=== PATIENT | male | born 1950 | race Caucasian/White ===

== ENCOUNTER → 2018-11-20 08:00 | Outpatient (CLI) | payer MEDICARE, BC, SELFPAY ==
--- NOTE | 2018-11-20 | IMM_PTH ---
PATIENT: DESIRE SORENSEN LOC: [facility] U#:[id number] AGE/SX: 74/M ROOM: RE11/20/[address]: Dr. Curtis Collins MD : 1950 BED: DIS: SPEC #: [id number] RECD: 11/22/18 14:22 STATUS: ENA REMore #: [id number] CHIDI: 11/20/18 00:[address]: Curtis Collins DEPT: IMMUNOHISTOCHEMISTRY RECD BY: Orin Heck ENTERED: 11/22/18 14:24 SP TYPE: IMMUNO OTHR DR: Dr. Willis Means MD Tissues: C - PROSTATE RIGHT E - PROSTATE LEFT F - PROSTATE LEFT Procedures: 34BE12 (add) P40 (add) 34BE12 (initial) PHYSICIAN & INSTITUTION [place] [id number] SPECIMEN INFORMATION: Tissue Source: C - Right prostate, base, E - Left prostate, mid, F - Left prostate, base Clinical Info: Elevated PSA Specimen Number: [id number] C, E & F CPT code: 25432, 03865 x5 METHODOLOGY: Deparaffinized sections of prefer/formalin-fixed tissue or PAP/DQ stained slides are incubated with monoclonal/polyclonal antibodies/oligonucleotide probes. Localization is made via biotin free immunoperoxidase method. Appropriate controls are performed and reacted as expected. Results on target cell population are indicated in the following table: RESULTS: ANTIBODY / CLONE RESULT Block C P40 (BC28) positive 34BE12 (34BE12) positive Block E P40 (BC28) negative 34BE12 (34BE12) negative Block F P40 (BC28) negative 34BE12 (34BE12) negative These tests were developed and their performance characteristics determined by [facility]. They may not have been cleared or approved by the U.S. Food and Drug Administration. The FDA has determined that such clearance or approval is not necessary. INTERPRETATION: C. Right prostate, base, core biopsy: Benign prostatic tissue E. Left prostate, mid, core biopsy: Focal atypical small acinar proliferation F. Left prostate, base, core biopsy: Adenocarcinoma. AM:diego 11/23/18
--- NOTE | 2018-11-20 08:00 | PROSBIL_PTH ---
PATIENT: DESIRE SORENSEN LOC: [facility] U#:[id number] AGE/SX: 74/M ROOM: RE11/20/[address]: Dr. Curtis Collins MD : 1950 BED: DIS: SPEC #: [id number] RECD: 11/20/18 18:55 STATUS: ENA ISABELLA #: [id number] CHIDI: 11/20/18 08:[address]: Curtis Collins DEPT: SURGICAL PATHOLOGY RECD BY: Chaka Dixon ENTERED: 11/21/18 10:03 SP TYPE: PROST BX VALENTÍN DR: Dr. Willis Means MD Tissues: A - PROSTATE RIGHT B - PROSTATE RIGHT C - PROSTATE RIGHT D - PROSTATE LEFT E - PROSTATE LEFT F - PROSTATE LEFT Procedures: PROSTATE BX HEADER OPERATION: Prostate biopsy PRE-OP DIAGNOSIS: Elevated PSA TISSUE SUBMITTED: A - Right apex, B - Right mid, C - Right base, D - Left apex, E - Left mid, F - Left base MICROSCOPIC DIAGNOSIS A. Right prostate, apex, core biopsy: Adenocarcinoma: [place] grade: 6 (3+3) Cores involved: 2 out of 2 Tissue involved: 35% Greatest tumor length: 3 mm Perineural invasion: Present B. Right prostate, mid, core biopsy: Glandular atrophy. C. Right prostate, base, core biopsy: Focal high-grade prostatic intraepithelial neoplasia (HGPIN). See comment. D. Left prostate, apex, core biopsy: Adenocarcinoma: Al[place] grade: 6 (3+3) Cores involved: 2 out of 2 Tissue involved: 45% Greatest tumor length: 8 mm E. Left prostate, mid, core biopsy: Focal atypical small acinar proliferation. See comment. F. Left prostate, base, core biopsy: Adenocarcinoma: [place] grade: 7 (3+4) Cores involved: 2 out of 2 Tissue involved: 55% Greatest tumor length: 1 mm See comment. AM:diego 11/22/18 COMMENT C, E & F - Immunohistochemistry ([id number]) supports the above diagnosis. MICROSCOPIC DESCRIPTION Slides are reviewed. GROSS DESCRIPTION A - Received is one container designated prostate, right apex. The specimen consists of two elongated fragments of light dunn-white soft tissue measuring 0.8 to 1.2 cm in length and 0.1 cm in diameter. The specimen is totally submitted in one cassette. B - Received is one container designated prostate, right mid. The specimen consists of two elongated fragments of light dunn-white soft tissue measuring 0.5 to 1.2 cm in length and 0.1 cm in diameter. The specimen is totally submitted in one cassette. C - Received is one container designated prostate, right base. The specimen consists of two elongated fragments of light dunn-white soft tissue measuring 1.2 to 1.3 cm in length and 0.1 cm in diameter. The specimen is totally submitted in one cassette. D - Received is one container designated prostate, left apex. The specimen consists of two elongated fragments of light dunn-white soft tissue measuring 0.7 to 1.2 cm in length and 0.1 cm in diameter. The specimen is totally submitted in one cassette. E - Received is one container designated prostate, left mid. The specimen consists of two elongated fragments of light dunn-white soft tissue measuring 0.5 to 1.2 cm in length and 0.1 cm in diameter. The specimen is totally submitted in one cassette. F - Received is one container designated prostate, left base. The specimen consists of two elongated fragments of light dunn-white soft tissue measuring 0.9 to 1 cm in length and 0.1 cm in diameter. The specimen is totally submitted in one cassette. / CE:diego 11/21/18 TC:0 CPT: G0146
== END ==
PROVIDERS: Family Provider Family Medicine; PCP Family Medicine; Referring Provider Urology; Visit Provider Urology
DX: R97.20 Elevated prostate specific antigen [PSA] (principal)
CPT/HCPCS: 88305; 88341; 88342; G0416

== ENCOUNTER → 2018-12-07 | Outpatient (CLI) | payer MEDICARE, BC, SELFPAY ==
--- NOTE | 2018-12-07 07:51 | CT_ITS ---
STUDY: CT ABDOMEN AND PELVIS WITH CONTRAST REASON FOR EXAM: Male, 68 years old. New diagnosis of prostate cancer. Elevated PSA levels. RADIATION DOSAGE (If Supplied By Facility): CTDIvol = ( 21.47 ) mGy, DLP = ( 1221.66 ) mGycm TECHNIQUE: Transaxial images were obtained from the dome of the diaphragm to the symphysis pubis without oral contrast. 75mL IV Isovue 300 was administered. Sagittal and coronal images were reconstructed. Individualized dose optimization techniques were used for this CT. COMPARISON: None. FINDINGS: The visualized lung bases are unremarkable. The visualized portions of the heart are within normal limits. There is decreased attenuation of the liver consistent with steatosis. Normal gallbladder and extrahepatic biliary system. Normal spleen. Normal pancreas. Normal bilateral adrenal glands. Normal right kidney. Normal left kidney. There is a small hiatal hernia. Normal small intestine. Normal colon. The appendix is visualized and appears normal. There is scattered atherosclerotic calcification of the abdominal aorta, without a demonstrated aneurysm. Normal inferior vena cava. There is retroperitoneal lymphadenopathy with enlarged nodes greater than 10-15mm in the short axis. The largest measures 1.9 cm. This is at the level of the bifurcation of the left common iliac artery and vein. There is also evidence of a 1.7 cm lymph node in the level of the left renal pelvis. This is at the level of the left renal hilus. Slightly enlarged lymph nodes are also seen in the left side of the pelvis. Normal urinary bladder. There is enlargement of the prostate gland. It measures 5.6 cm x 5.3 cm. This causes indentation at the bladder base. There is a small umbilical hernia containing fat. Small benign-appearing lymph nodes in the inguinal regions bilaterally. There are diffuse degenerative changes of the visualized lumbar spine. CT/Abdomen/Pelvis WITH Contrast IMPRESSION: Enlarged prostate with indentation of the bladder base. Retroperitoneal lymphadenopathy. Fatty infiltration of the liver. Electronically Signed: Marcos Booker, at 10:33 EDT , Service support ,
[2018-12-07 08:11] LABS: CREATININE FINGERSTICK 1.4 mg/dL (0.70-1.30)
== END | disposition home or self-care (01) ==
PROVIDERS: Family Provider Family Medicine; PCP Family Medicine; Referring Provider Urology; Visit Provider Urology
DX: C61 Malignant neoplasm of prostate (principal)
CPT/HCPCS: 74177; Q9967

== ENCOUNTER → 2018-12-11 07:31 | Outpatient (CLI) | payer MEDICARE, BC, SELFPAY ==
--- NOTE | 2018-12-11 07:36 | NM_ITS ---
CLINICAL: 68-year-old male with reported history of carcinoma of the prostate. WHOLE BODY 99m Tc MDP RADIONUCLIDE BONE SCINTIGRAPHY COMPARISON: CT of the abdomen-pelvis report 12/07/2018 FINDINGS: Following the intravenous administration of 28.0 mCi of 99m Tc MDP, whole body bone images reveal: 1. Increased radiopharmaceutical concentration is identified in the right posterior third rib. 2. Facilitated tracer distribution is noted in the mid cervical spine posteriorly on the left and right, the acromioclavicular and sternoclavicular compartments of both shoulders, third and fifth lumbar vertebra posteriorly on the left, visualized left wrist, both knees, posterior compartments of both ankles, right-left midfoot and right forefoot. 3. The remaining skeletal structures are scintigraphically unremarkable with normal-appearing renal images and urinary bladder activity identified. NM/Bone Scan Whole Body IMPRESSION: 1. The increase in radiopharmaceutical concentration identified in the right posterior third rib likely represents previous trauma-fracture and may be further investigated with plain film radiography in the setting of known prostate carcinoma. 2. 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 3. There is no definitive scintigraphic evidence of diffuse axial skeletal metastatic disease on the current examination. Electronically Signed: Renaldo Peguero DO at 23:20 EDT Tel , Service support ,
== END ==
PROVIDERS: Family Provider Family Medicine; PCP Family Medicine; Referring Provider Urology; Visit Provider Urology
DX: C61 Malignant neoplasm of prostate (principal)
CPT/HCPCS: 78306

== ENCOUNTER 2019-02-14 11:27 | Inpatient (IN) | payer MEDICARE, BC, SELFPAY ==
[2019-02-08 09:16] VITALS: BP 150/88; PULSE 67; RESP 16; TEMP 36.1; O2SAT 98; BMI 34.1
--- NOTE | 2019-02-08 09:32 | SDCEKG_ITS ---
Test Reason : Blood Pressure : / mmHG Vent. Rate : 063 BPM Atrial Rate : 063 BPM P-R Int : 256 ms QRS Dur : 100 ms QT Int : 402 ms P-R-T Axes : 082 -46 -07 degrees QTc Int : 411 ms Sinus rhythm with 1st degree A-V block Pulmonary disease pattern Incomplete right bundle branch block Left anterior fascicular block Minimal voltage criteria for LVH, may be normal variant Abnormal ECG Confirmed by KENDY PEREZ ([id number]), photography editor SCOOTER BULLOCK ([id number]) on 02/12/2019 2:00:22 PM Referred By: Curtis Collins Confirmed By:KENDY PEREZ
[2019-02-08 10:32] LABS: Hematocrit 40.4 % (40-54); Hemoglobin 13.2 g/dL (13.0-16.5); Mean Corp Hgb Conc 32.7 g/dL (32-36); Mean Corpuscular Hgb 25.9 pg (27.0-32.0); Mean Corpuscular Volume 79.2 fL (80-94); Mean Platelet Vol. 11.5 fl (6.2-12.0); Platelet Count 150 K/mm3 (150-450); RBC Distribution Width CV 14.6 % (11.6-14.6); RBC Distribution Width SD 42.1 fl (35.1-43.9)
[2019-02-08 10:53] LABS: Anion Gap 9 (5-15); BUN 17 mg/dL (7-18); BUN/Creat Ratio 18.3 RATIO (10-20); Chloride 105 mmol/L (98-107); Creatinine, Serum 0.93 mg/dL (0.70-1.30); EST Glomerular Filtration Rate 86 mL/min (>60); Est Glom Filt Rate - Afr Amer 103 mL/min (>60); Estimated Creatinine Clearance 78.72 ml/min; Glucose 219 mg/dL (74-106); Potassium 3.8 mmol/L (3.5-5.1); Sodium Level 140 mmol/L (136-145)
[2019-02-08 11:01] LABS: Hemoglobin A1c 8.8 % (4.2-6.3)
[2019-02-14] VITALS (14 sets, daily range): BP systolic 98–170; BP diastolic 57–94; PULSE 53–92; RESP 14–20; TEMP 36–37; O2SAT 92–100; BMI 34.1
--- NOTE | 2019-02-14 | IMM_PTH ---
PATIENT: DESIRE SORENSEN LOC: [facility] U#:[id number] AGE/SX: 68/M ROOM: [facility] RE02/14/[address]: Dr. Curtis Collins MD : 1950 BED: 1 DIS: 02/15/2019 SPEC #: [id number] RECD: 02/16/19 14:04 STATUS: ENA REQ #: [id number] CHIDI: 02/14/19 00:[address]: Curtis Collins DEPT: IMMUNOHISTOCHEMISTRY RECD BY: Orin Heck ENTERED: 02/16/19 14:05 SP TYPE: IMMUNO OTHR DR: Dr. Willis Means MD Tissues: B - Prostate, NOS Procedures: CD31 (initial) CD31 (add) FACTOR VIII (add) PHYSICIAN & INSTITUTION [place] [phone] SPECIMEN INFORMATION: Tissue Source: B - Prostate Clinical Info: Malignant neoplasm, elevated PSA Specimen Number: [id number] B15 & B18 CPT code: 82758, 56363 x3 METHODOLOGY: Deparaffinized sections of prefer/formalin-fixed tissue or PAP/DQ stained slides are incubated with monoclonal/polyclonal antibodies/oligonucleotide probes. Localization is made via biotin free immunoperoxidase method. Appropriate controls are performed and reacted as expected. Results on target cell population are indicated in the following table: RESULTS: ANTIBODY / CLONE RESULT Block B15 CD31 (SANIA/70A) positive Factor VIII (R Ag) negative Block B18 CD31 (SANIA/70A) positive Factor VIII (R Ag) positive, focal These tests were developed and their performance characteristics determined by [facility]. They may not have been cleared or approved by the U.S. Food and Drug Administration. The FDA has determined that such clearance or approval is not necessary. INTERPRETATION: B. Prostate, radical prostatectomy: The tumor shows focal lymph-vascular invasion. SJ:diego 02/19/19
[2019-02-14 06:25] LABS: Bedside Glucose 142 mg/dL (70-110)
--- NOTE | 2019-02-14 07:30 | PROST_PTH ---
PATIENT: DESIRE SORENSEN LOC: [facility] U#:[id number] AGE/SX: 68/M ROOM: [facility] RE02/14/[address]: Dr. Curtis Collins MD : 1950 BED: 1 DIS: 02/15/2019 SPEC #: [id number] RECD: 02/14/19 16:43 STATUS: ENA REQ #: [id number] CHIDI: 02/14/19 07:[address]: Curtis Collins DEPT: SURGICAL PATHOLOGY RECD BY: Chaka Dixon ENTERED: 02/15/19 09:33 SP TYPE: PROSTATE OTHR DR: Dr. Willis Means MD Tissues: A - Prostate, NOS B - Prostate, NOS C - Prostate, NOS Procedures: Surgery Specimen Level IV Surgery Specimen Level HEADER OPERATION: Laparoscopic robotic radical prostatectomy with IOC PRE-OP DIAGNOSIS: Malignant neoplasm of prostate; elevated PSA TISSUE SUBMITTED: A - Fat over prostate, B - Prostate, C - Apical margin MICROSCOPIC DIAGNOSIS A. Fat over prostate: Fragments of mature adipose tissue, negative for carcinoma. B. Prostate, radical prostatectomy: Prostatic adenocarcinoma. See cancer summary below. C. Apical margin, biopsy: Positive for prostatic adenocarcinoma. SJ:diego 02/16/19 PROSTATE CANCER (RADICAL) SUMMARY: Procedure - radical prostatectomy Prostate size - 5 cm transversely, 4 cm anteroposteriorly and 4 cm craniocaudally Prostate weight - 88.3 gm Lymph node sampling - no lymph node present. Histologic type - adenocarcinoma (acinar, not otherwise specified) Histologic grade ([place] Pattern): Primary pattern - 4 Secondary pattern - 5 Tertiary pattern - 3 Total Alida score - 9 Tumor Quantitation: Proportion (%) of prostate involved by tumor - ~40% Extraprostatic extension - present, focal Seminal vesicle invasion - present Margins - apical margin involved by tumor. Treatment effect on carcinoma - no known presurgical therapy Lymph-Vascular invasion - present, see comment. Perineural invasion - present, frequent Regional lymph nodes - no lymph nodes submitted or found. Distant metastasis - not applicable Additional pathologic findings - chronic inflammation - Benign prostatic hyperplasia, glandular and stromal type. Ancillary studies - see immunohistochemistry ([id number]). PATHOLOGIC STAGE: pT3a,b pNx Mx The above summary is in compliance with [employer] (CAP) Cancer Protocols Checklist and [place] Joint Committee on Cancer (AJCC), Staging Manual, 8th Ed. COMMENT Immunohistochemistry ([id number]) supports the diagnosis of lymph-vascular invasion. The tumor involves both right and left lobes, apical, mid and basal portion of the prostate and in each lobe it measures about 1.7 x 1 x 3.5 cm. The tumor in the left lobe is present in slides #3, 6, 9, 11, 15, 15, 17 and 19 and in the right lobe is present in slides #3, 7, 8, 10, 12, 14 and 18. Please make reference to previous specimen ([id number]) right prostate, apex, left prostate, apex, and left prostate, base with diagnosis of adenocarcinoma right prostate, base with diagnosis of focal high-grade prostatic intraepithelial neoplasia and left prostate, mid with diagnosis of focal atypical small acinar proliferation. Case has been reviewed in consultation with Dr. Nguyễn who concurs with the above diagnosis. IDC:AM MICROSCOPIC DESCRIPTION Slides are reviewed. GROSS DESCRIPTION A - Received in fixative is one container labeled with the patient's name and designated fat over prostate. The specimen consists of two pieces of yellow adipose tissue that in aggregate measure 3.5 x 2 x 0.5 cm. The entire specimen is submitted in two cassettes. B - Received in fixative is one container labeled with the patient's name and designated prostate. The specimen consists of a radical prostatectomy specimen consisting of prostate with attached bilateral seminal vesicles and vas deferens. The entire specimen weighs 88.3 gm. The prostate measures 5 cm transversely, 4 cm anteroposteriorly and 4 cm craniocaudally. The right seminal vesicle measures 3 x 2 x 1 cm. The right vas deferens is partly disrupted and measures 2 cm in length and 0.4 cm in diameter. The left seminal vesicle measures 3 x 2 x 1 cm and left vas deferens measures 2 cm in length and 0.4 cm in diameter. The prostate is inked as follows: anterior margin - yellow, posterior margin - black, right lateral surface - green, left lateral surface - blue, bilateral seminal vesicles and vas deferens - posterior surface - black, anterior surface right seminal vesicle and vas deferens - blue, anterior surface left seminal vesicle and vas deferens - green. Sections do not reveal any obvious mass lesion. Children'S Nursery Assistant sections are submitted in 19 cassettes as follows: 1 - right seminal vesicle and vas deferens, 2 - left seminal vesicle and vas deferens, 3 - apical margin enface, 4 & 5 - bladder base margin and most basal portion prostate enface, 6-9 - apical portion prostate, 10-13 - middle portion prostate, 1419 - basal portion prostate. C - Received in fixative is one container labeled with the patient's name and designated apical margin. The specimen consists of two pieces of indurated tissue that in aggregate measure 1.7 x 1.7 x 0.5 cm. A suture is noted in one of the pieces. No mass lesion is identified. The entire specimen is submitted in one cassette. / COLEMAN:diego 02/15/19 TC:0 CPT: 51922, 87676 x2
[2019-02-14] MEDS: Cefazolin 2 GM in 0.9% Normal Saline 100 ML IV (07:34)
[2019-02-14] MEDS: Bupivacaine Mpf 0.5% 30 ML VIAL (11:00)
--- NOTE | 2019-02-14 11:15 | OP.PCM_ITS ---
Report of Operation Date of Procedure: 02/14/19 Pre-Operative Diagnosis: Prostate cancer Post-Operative Diagnosis: The same Surgery/Procedure Performed:: Laparoscopic robotic assisted radical prostatectomy, suture suspension of the urethra, EMG monitoring of the sphincter s and pelvic nerves. Description of Surgical Findings:: 68-year-old male taken back to the operating room at the smooth induction of anesthesia he was placed in dorsolithotomy position the penis testicles the abdomen chevron shaped prepped and draped in usual sterile fashion went into the umbilicus with a needle and inflated the peritoneal cavity CO2 gas docked the robotic arms docked the robot dissected below the bladder and prostate identified the vas deferens seminal vesicle these were all dissected out came back up drop the bladder I then incised the endopelvic fascia stitch in the dorsal vein complex, I then transected through the bladder and prostate down to the seminal vesicles and vas deferens, we then took the pedicles in the right side of the prostate and then released neurovascular bundles on the right side but very tight very difficult to release these and then dissected up on the right side of the partial nerve sparing in the right side, went to the left side took the pedicle in the left side of the prostate release neurovascular bundles but again extremely difficult dissection very fatty tissue was taken to the prostate so the nerve dissection was a partial nerve dissection of the left side as well I then transected to the urethra we then noticed that there is a bit of tissue in the apex that was anterior margin this was sent off from the urethra as an extra anterior margin and then came across the catheter prostate was then removed put an Endo Catch bag. I then stimulated the EMG electrodes on the right side and the left side checked for nerve conduction there was still nerve conduction on the right side left side is very weak. We then suspended the urethra with suture and created the anastomosis between the urethra and the bl adder neck over catheter this was run down with a running 30V lock stitch Encinas catheter was placed in the bladder placed to gravity drainage patient anesthetic is currently being reversed we extracted the prostate to the umbilicus we closed the umbilicus with the interrupted stitches and closed the 1012 Jaun Lopez site with Jaun Lopez stitch patient's anesthetic is currently being rever sed blood loss was about 500cc Encinas catheter was flushing well he will go home with a catheter in about a day or 2. Type of Anesthesia:: General Drains: encinas - Admit VTE Documentation VTE Present on Admission: No VTE Mechan Device Prophylaxis: SCD's
--- NOTE | 2019-02-14 11:42 | PCM.DC.URO ---
Discharge Diet: Light diet - advance as tolerated Discharge Activity: Return to Normal Activity, May not drive while taking narcotic pain medications., May Shower Lifting Restrictions: no lifting Call your doctor if your incision/area has: Continuous Slow Oozing, Sudden Increased Bleeding, Increased Pain/ Swelling, Increased Redness, Foul Smelling Discharge, Swelling at the incision site Call your doctor if you observe: Fever of 101 or Higher, Inability to have a bowel movement, Uncontrolled pain Suture Line Care: Avoid Pulling/Pushing, Avoid Pinching/Bending Instructions: Radical Prostatectomy Allergies/Adverse Reactions: Allergies No Known Allergies Allergy (Verified 02/08/19 09:01) Medications to take at Discharge Amlodipine [Norvasc] 10 mg PO QHS 02/08/19 Carvedilol [Coreg] 12.5 mg PO BID 02/08/19 Losartan Potassium [Cozaar] 100 mg PO DAILY 02/08/19 Metformin HCl 1,000 mg PO BID 02/08/19 Tamsulosin HCl [Flomax] 0.4 mg PO QHS 02/08/19 hydrALAZINE [Apresoline] 25 mg PO BID 02/08/19 Ciprofloxacin [Cipro] 500 mg PO BID #14 tab 02/14/19 Docusate Sodium [Colace] 100 mg PO BID #20 cap 02/14/19 Hydrocodone/Acetaminophen [[place] 5-325 Tablet] 1 ea PO Q4H PRN PRN 5 Days #14 tab 02/14/19 Primary Care Physician: Willis Means MD [Primary Care Provider] - Test Results: Test results from this visit will be discussed in further detail at your follow-up appointment, if applicable. Please Follow Up With: Curtis Collins MD When: in 2 weeks, please call to make an appointment. Proposed Discharge Date: 02/15/19
[2019-02-14 11:50] LABS: Bedside Glucose 202 mg/dL (70-110)
[2019-02-14 12:01] LABS: Hematocrit 39.8 % (40-54); Hemoglobin 12.7 g/dL (13.0-16.5); Mean Corp Hgb Conc 31.9 g/dL (32-36); Mean Corpuscular Hgb 25.7 pg (27.0-32.0); Mean Corpuscular Volume 80.6 fL (80-94); Mean Platelet Vol. 11.1 fl (6.2-12.0); Platelet Count 179 K/mm3 (150-450); RBC Distribution Width CV 14.5 % (11.6-14.6); RBC Distribution Width SD 42.2 fl (35.1-43.9); Red Blood Count 4.94 M/mm3 (4.6-6.2); White Blood Count 14.4 K/mm3 (4.4-11.0)
[2019-02-14 12:15] LABS: Anion Gap 9 (5-15); BUN 16 mg/dL (7-18); BUN/Creat Ratio 14.2 RATIO (10-20); Calcium,Total 8.4 mg/dL (8.5-10.1); Chloride 103 mmol/L (98-107); Creatinine, Serum 1.13 mg/dL (0.70-1.30); EST Glomerular Filtration Rate 68 mL/min (>60); Est Glom Filt Rate - Afr Amer 82 mL/min (>60); Estimated Creatinine Clearance 64.79 ml/min; Glucose 223 mg/dL (74-106); Sodium Level 140 mmol/L (136-145)
[2019-02-14] MEDS: Ketorolac 15 MG/ML Vial IV ×2 (13:13→17:21)
[2019-02-14] MEDS: 0.9% NaCl Peripheral Flush Adult/Peds IV ×2 (13:13→17:21)
[2019-02-14] MEDS: 0.9% Normal Saline 1,000 ML 125 ML IV ×2 (13:13→21:19)
[2019-02-14] MEDS: Ciprofloxacin 400 MG/200 ML BAG 200 MG IV (15:30)
[2019-02-14] MEDS: metFORMIN HCl 1,000 MG Tablet 1000 MG PO (18:16)
[2019-02-14] MEDS: amLODIPine 10 MG Tablet PO (21:22)
[2019-02-14] MEDS: Docusate Sodium 100 MG Capsule PO (21:22)
[2019-02-14] MEDS: Carvedilol 12.5 MG Tablet PO (21:22)
[2019-02-14] MEDS: hydrALAZINE 25 MG Tablet PO (21:23)
[2019-02-15] MEDS: Ketorolac 15 MG/ML Vial IV ×3 (00:34→11:53)
[2019-02-15] MEDS: 0.9% NaCl Peripheral Flush Adult/Peds IV ×3 (00:35→11:53)
[2019-02-15 04:15] VITALS: O2SAT 91
[2019-02-15 04:22] VITALS: BP 129/70; PULSE 79; RESP 18; TEMP 36.9; O2SAT 93
[2019-02-15] MEDS: 0.9% Normal Saline 1,000 ML 125 ML IV (04:24)
[2019-02-15] MEDS: Ciprofloxacin 400 MG/200 ML BAG 200 MG IV (04:25)
[2019-02-15 06:05] LABS: Hematocrit 34.3 % (40-54); Hemoglobin 10.9 g/dL (13.0-16.5); Mean Corp Hgb Conc 31.8 g/dL (32-36); Mean Corpuscular Hgb 25.2 pg (27.0-32.0); Mean Corpuscular Volume 79.2 fL (80-94); Mean Platelet Vol. 11.8 fl (6.2-12.0); Platelet Count 148 K/mm3 (150-450); RBC Distribution Width SD 43.4 fl (35.1-43.9); Red Blood Count 4.33 M/mm3 (4.6-6.2); White Blood Count 9.4 K/mm3 (4.4-11.0)
[2019-02-15 06:43] LABS: Anion Gap 10 (5-15); BUN 14 mg/dL (7-18); Calcium,Total 7.6 mg/dL (8.5-10.1); Chloride 106 mmol/L (98-107); Creatinine, Serum 0.88 mg/dL (0.70-1.30); EST Glomerular Filtration Rate 91 mL/min (>60); Est Glom Filt Rate - Afr Amer 110 mL/min (>60); Estimated Creatinine Clearance 83.19 ml/min; Glucose 179 mg/dL (74-106); Potassium 3.7 mmol/L (3.5-5.1); Sodium Level 139 mmol/L (136-145)
--- NOTE | 2019-02-15 07:32 | PCM.PN.BLA ---
Progress Note Postop day #1 status post radical prostatectomy doing well, advance to regular diet Hep-Lock he can go home today after lunch if doing well. Home with a Abbott catheter to gravity drainage and leg bag
[2019-02-15 08:06] VITALS: BP 132/77; PULSE 75
[2019-02-15] MEDS: hydrALAZINE 25 MG Tablet PO (08:06)
[2019-02-15] MEDS: Pantoprazole Sodium 20 MG Tablet PO (08:07)
[2019-02-15] MEDS: metFORMIN HCl 1,000 MG Tablet 1000 MG PO (08:07)
[2019-02-15] MEDS: Docusate Sodium 100 MG Capsule PO (08:07)
[2019-02-15] MEDS: Carvedilol 12.5 MG Tablet PO (08:07)
[2019-02-15] MEDS: Losartan Potassium 100 MG Tablet PO (08:07)
[2019-02-15 08:09] VITALS: BP 132/77; PULSE 75; RESP 18; TEMP 36.9; O2SAT 95
[2019-02-15] MEDS: Magnesium Hydroxide 30 ML UDC 15 ML PO (09:52)
--- NOTE | 2019-02-15 10:57 | CASEMGMT ---
RN CM Assessment Presentation: Radical prostatecomy. Intro role of CM and purpose of RN CM assessment to patient and his . Demographics, PCP and Pharmacy verified. Will dc home with catheter and f/u with Dr. Collins PCP: Dr. Willis Means Specialists: Dr. Collins Preferred Pharmacy: [facility] Insurance: [facility] Prescription Benefit: yes LNOK: , Sarahi Jacoob Living Arrangements: Lives independently. states she can assist with pt care needs. Family lives near by and are willing to assist if needed. Transportation: drives DME: none. HHC: none Patient DC goals: Home DC PLAN: Home on dc. Pt will have encinas catheter. RN DAI reviewed if concerns arise @ home to contact Dr. Collins's nurse for evaluation. Deonna PURVIS RN ACM
[2019-02-15 13:22] VITALS: O2SAT 95
[2019-02-15 14:37] VITALS: BP 119/67; PULSE 79; RESP 18; TEMP 36.8; O2SAT 94
== END 2019-02-15 16:02 | disposition home or self-care (01) | DRG 708 ==
LOC: SDC 02-15 06:51
PROVIDERS: Anesthesiology; Admitting Provider Urology; Family Provider Family Medicine; PCP Family Medicine; Referring Provider Urology; Visit Provider Urology
PROC: 0VT04ZZ Resection of Prostate, Percutaneous Endoscopic Approach (ICD-10-PCS; CPT 55866; principal; 2019-02-14 07:10)
DX: C61 Malignant neoplasm of prostate (principal)
CPT/HCPCS: 36415; 80048; 82962; 83036; 85027; 88305; 88309; 88341; 88342; 93005; J7030; J7120; A4216; J0744; J2405

== ENCOUNTER → 2019-06-05 06:34 | Outpatient (CLI) | payer MEDICARE, BC, SELFPAY ==
[2019-02-14 13:23] VITALS: BMI 34.1
[2019-05-28 13:38] VITALS: BMI 31.4
--- NOTE | 2019-06-05 06:48 | MRI_ITS ---
STUDY: MR PELVIS WITH T WITHOUT CONTRAST REASON FOR EXAM: Male, 68 years old. Elevated PSA despite surgical resection of the prostate for cancer 4 months ago. TECHNIQUE: Standardized fat and water weighted pulse sequences were obtained in all 3 orthogonal planes, pre-and post contrast administration. IV Dotarem 19 was administered for the contrast portion of the examination. COMPARISON: CT of the abdomen and pelvis, December 06, 2089 FINDINGS: There is evidence of interval radical prostatectomy. There is normal appearance of the anastomosis of the bladder neck with the membranous urethra. This is of uniform low signal. There is no evidence of immediate signal soft tissue to suggest residual prostate. No evidence of abnormal contrast enhancement. There is no visualized pelvic lymphadenopathy. Normal urinary bladder. Normal visualized small intestine. Normal visualized colon. There is no pelvic fluid. There is no pelvic mass lesion or lymphadenopathy. Normal visualized pelvic arteries. Normal osseous structures. Normal abdominal wall. MRI/Pelvis W/WO Contrast IMPRESSION: Interval radical prostatectomy. There is no visualization of residual tissue or local recurrence. There is no evidence of metastatic disease. Electronically Signed: Bassam Phipps DO at 22:43 EST Tel [phone], Service support ,
[2019-06-05 07:01] LABS: Creatinine, Serum 0.97 mg/dL (0.70-1.30); EST Glomerular Filtration Rate 81 mL/min (>60); Est Glom Filt Rate - Afr Amer 98 mL/min (>60)
[2019-06-05 07:35] LABS: CREATININE FINGERSTICK 0.9 mg/dL (0.70-1.30); EGFR FINGERSTICK > 60.0000 mL/min (>60)
== END ==
PROVIDERS: Family Provider Family Medicine; PCP Family Medicine; Referring Provider Student in an Organized Health Care Education/Training Program; Visit Provider Student in an Organized Health Care Education/Training Program
DX: C61 Malignant neoplasm of prostate (principal)
CPT/HCPCS: 36415; 72197; 82565; A9575

== ENCOUNTER → 2019-09-06 11:11 | Outpatient (CLI) | payer MEDICARE, BC, SELFPAY ==
[2019-02-14 13:23] VITALS: BMI 34.1
[2019-05-28 13:38] VITALS: BMI 31.4
[2019-09-06 11:35] LABS: Absolute Lymphocyte Count 1.93 X10^3/uL (0.83-4.51); Absolute Neutrophil Count 5.1 X10^3/uL (2.0-7.7); Basophil# 0.11 X10^3/uL; Basophil% 1.3 % (0-1); Eosinophil# 0.55 X10^3/uL; Eosinophils% 6.4 % (0-5); Hematocrit 37.7 % (40-54); Hemoglobin 11.4 g/dL (13.0-16.5); Lymphocyte # 1.93 X10^3/ul (4.0); Lymphocyte % 22.6 % (19-41); Mean Corp Hgb Conc 30.2 g/dL (32-36); Mean Corpuscular Hgb 22.1 pg (27.0-32.0); Mean Corpuscular Volume 73.1 fL (80-94); Mean Platelet Vol. 10.4 fl (6.2-12.0); Monocyte# 0.77 X10^3/uL; NRBC Flagged by Analyzer 0 % (0-5); Neutrophil # 5.14 X10^3/uL (2.7-7.7); Neutrophil % 60.1 % (47-70); Platelet Count 216 K/mm3 (150-450); RBC Distribution Width CV 17.5 % (11.6-14.6); RBC Distribution Width SD 46.1 fl (35.1-43.9); Red Blood Count 5.16 M/mm3 (4.6-6.2); White Blood Count 8.6 K/mm3 (4.4-11.0)
[2019-09-06 11:56] LABS: Creatinine, Serum 1.07 mg/dL (0.70-1.30); EST Glomerular Filtration Rate 72 mL/min (>60); Est Glom Filt Rate - Afr Amer 88 mL/min (>60); PSA,Total- Diagnostic < 0.01 ng/mL (0.0-4.0)
== END ==
PROVIDERS: PCP Family Medicine; Referring Provider Radiology Radiation Oncology; Visit Provider Radiology Radiation Oncology
DX: Z01.818 Encounter for other preprocedural examination (principal); C61 Malignant neoplasm of prostate
CPT/HCPCS: 36415; 82565; 84153; 85025

== ENCOUNTER → 2019-10-23 11:58 | Outpatient (CLI) | payer MEDICARE, BC, SELFPAY ==
[2019-02-14 13:23] VITALS: BMI 34.1
[2019-05-28 13:38] VITALS: BMI 31.4
[2019-10-22 13:06] LABS: Absolute Lymphocyte Count 1.41 X10^3/uL (0.83-4.51); Absolute Neutrophil Count 5.2 X10^3/uL (2.0-7.7); Basophil# 0.07 X10^3/uL; Basophil% 0.9 % (0-1); Eosinophil# 0.46 X10^3/uL; Eosinophils% 5.7 % (0-5); Hemoglobin 9.8 g/dL (13.0-16.5); Lymphocyte # 1.41 X10^3/ul (4.0); Lymphocyte % 17.6 % (19-41); Mean Corp Hgb Conc 30.6 g/dL (32-36); Mean Corpuscular Hgb 22.3 pg (27.0-32.0); Mean Corpuscular Volume 72.9 fL (80-94); Mean Platelet Vol. 10.4 fl (6.2-12.0); Monocyte# 0.81 X10^3/uL; Monocyte% 10.1 % (0-10); NRBC Flagged by Analyzer 0 % (0-5); Neutrophil # 5.22 X10^3/uL (2.7-7.7); Platelet Count 247 K/mm3 (150-450); RBC Distribution Width CV 16.8 % (11.6-14.6); RBC Distribution Width SD 44.9 fl (35.1-43.9); Red Blood Count 4.39 M/mm3 (4.6-6.2)
[2019-10-22 13:32] LABS: Creatinine, Serum 0.98 mg/dL (0.70-1.30); EST Glomerular Filtration Rate 80 mL/min (>60); Est Glom Filt Rate - Afr Amer 97 mL/min (>60)
--- NOTE | 2019-10-23 12:00 | CT_ITS ---
STUDY: CT PELVIS WITH CONTRAST REASON FOR EXAM: Male, 69 years old. CA PROSTATE RAD THERAPY PLANNING RADIATION DOSAGE (If Supplied By Facility): CTDIvol = ( 24.62 ) mGy, DLP = ( 1417.52 ) mGycm TECHNIQUE: Transaxial imaging of the pelvis was performed without oral contrast. IV 100ML ISOVUE 300 was administered intravenously. Individualized dose optimization techniques were used for this CT. COMPARISON: Comparison is made with prior examination dated December 07, 2018. FINDINGS: Normal urinary bladder. The patient is status post prostatectomy. Scattered radiation seeds are seen in the pelvis on either side of the urinary bladder. Normal visualized small intestine. Normal visualized colon. There is no pelvic fluid. There is no pelvic lymphadenopathy or mass lesion. There is diffuse atherosclerotic calcification of the pelvic arteries. Normal abdominal wall. There are diffuse degenerative changes of the visualized lumbar spine. CT/CT Pelvis W/CONT Therapy IMPRESSION: Status post prostatectomy. Electronically Signed: Marcos Booker, at 13:42 EDT , Service support ,
== END ==
PROVIDERS: PCP Family Medicine; Referring Provider Radiology Radiation Oncology; Visit Provider Radiology Radiation Oncology
DX: Z01.818 Encounter for other preprocedural examination (principal); C61 Malignant neoplasm of prostate
CPT/HCPCS: 36415; 51600; 72193; 82565; 85025; Q9967

== ENCOUNTER → 2019-11-21 09:02 | Outpatient (CLI) | payer MEDICARE, BC, SELFPAY ==
[2019-02-14 13:23] VITALS: BMI 34.1
[2019-05-28 13:38] VITALS: BMI 31.4
[2019-11-21 09:34] LABS: Absolute Lymphocyte Count 0.85 X10^3/uL (0.83-4.51); Basophil# 0.06 X10^3/uL; Eosinophil# 0.34 X10^3/uL; Eosinophils% 5.6 % (0-5); Hemoglobin 10.2 g/dL (13.0-16.5); Lymphocyte # 0.85 X10^3/ul (4.0); Mean Corpuscular Hgb 22.9 pg (27.0-32.0); Mean Corpuscular Volume 76.2 fL (80-94); Mean Platelet Vol. 9.3 fl (6.2-12.0); Monocyte# 0.73 X10^3/uL; NRBC Flagged by Analyzer 0 % (0-5); Neutrophil # 4.04 X10^3/uL (2.7-7.7); Neutrophil % 66.3 % (47-70); Platelet Count 166 K/mm3 (150-450); RBC Distribution Width CV 17.1 % (11.6-14.6); RBC Distribution Width SD 45.2 fl (35.1-43.9); Red Blood Count 4.46 M/mm3 (4.6-6.2); White Blood Count 6.1 K/mm3 (4.4-11.0)
== END ==
PROVIDERS: PCP Family Medicine; Referring Provider Radiology Radiation Oncology; Visit Provider Radiology Radiation Oncology
DX: C61 Malignant neoplasm of prostate (principal)
CPT/HCPCS: 36415; 85025

== ENCOUNTER → 2019-12-12 09:21 | Outpatient (CLI) | payer MEDICARE, BC, SELFPAY ==
[2019-02-14 13:23] VITALS: BMI 34.1
[2019-05-28 13:38] VITALS: BMI 31.4
[2019-12-12 10:18] LABS: Absolute Lymphocyte Count 0.71 X10^3/uL (0.83-4.51); Absolute Neutrophil Count 3.3 X10^3/uL (2.0-7.7); Basophil# 0.04 X10^3/uL; Basophil% 0.8 % (0-1); Eosinophil# 0.36 X10^3/uL; Eosinophils% 6.9 % (0-5); Hematocrit 31.7 % (40-54); Hemoglobin 9.7 g/dL (13.0-16.5); Lymphocyte # 0.71 X10^3/ul (4.0); Lymphocyte % 13.5 % (19-41); Mean Corp Hgb Conc 30.6 g/dL (32-36); Mean Corpuscular Hgb 23.8 pg (27.0-32.0); Mean Corpuscular Volume 77.9 fL (80-94); Monocyte# 0.73 X10^3/uL; Monocyte% 13.9 % (0-10); NRBC Flagged by Analyzer 0 % (0-5); Neutrophil # 3.33 X10^3/uL (2.7-7.7); Neutrophil % 63.4 % (47-70); Platelet Count 165 K/mm3 (150-450); RBC Distribution Width CV 17.8 % (11.6-14.6); RBC Distribution Width SD 49.4 fl (35.1-43.9); Red Blood Count 4.07 M/mm3 (4.6-6.2); White Blood Count 5.3 K/mm3 (4.4-11.0)
== END ==
PROVIDERS: PCP Family Medicine; Referring Provider Radiology Radiation Oncology; Visit Provider Radiology Radiation Oncology
DX: C61 Malignant neoplasm of prostate (principal)
CPT/HCPCS: 36415; 85025

== ENCOUNTER → 2020-02-29 09:55 | Outpatient (CLI) | payer MEDICARE, BC, SELFPAY ==
[2019-02-14 13:23] VITALS: BMI 34.1
[2019-05-28 13:38] VITALS: BMI 31.4
[2020-02-29 11:04] LABS: PSA,Total- Diagnostic < 0.01 ng/mL (0.0-4.0)
== END ==
PROVIDERS: PCP Family Medicine; Referring Provider Urology; Visit Provider Urology
DX: C61 Malignant neoplasm of prostate (principal)
CPT/HCPCS: 36415; 84153

== ENCOUNTER → 2020-08-21 11:07 | Outpatient (CLI) | payer MEDICARE, BC, SELFPAY ==
[2019-02-14 13:23] VITALS: BMI 34.1
[2019-05-28 13:38] VITALS: BMI 31.4
[2020-08-21 12:09] LABS: PSA,Total- Diagnostic < 0.01 ng/mL (0.0-4.0)
== END ==
PROVIDERS: PCP Family Medicine; Referring Provider Urology; Visit Provider Urology
DX: C61 Malignant neoplasm of prostate (principal)
CPT/HCPCS: 36415; 84153

== ENCOUNTER → 2020-12-04 12:42 | Outpatient (CLI) | payer MEDICARE, BC, SELFPAY ==
[2019-02-14 13:23] VITALS: BMI 34.1
[2019-05-28 13:38] VITALS: BMI 31.4
[2020-12-04 14:37] LABS: PSA,Total- Diagnostic < 0.01 ng/mL (0.0-4.0)
== END ==
PROVIDERS: PCP Family Medicine; Referring Provider Urology; Visit Provider Urology
DX: C61 Malignant neoplasm of prostate (principal)
CPT/HCPCS: 36415; 84153

== ENCOUNTER → 2021-03-19 09:20 | Outpatient (CLI) | payer MEDICARE, BC, SELFPAY ==
[2019-05-28 13:38] VITALS: BMI 31.4
[2021-03-19 11:41] LABS: PSA,Total- Diagnostic < 0.01 ng/mL (0.0-4.0)
== END ==
PROVIDERS: PCP Family Medicine; Referring Provider Urology; Visit Provider Urology
DX: C61 Malignant neoplasm of prostate (principal)
CPT/HCPCS: 36415; 84153

== ENCOUNTER → 2021-06-30 10:41 | Outpatient (CLI) | payer MEDICARE, BC, SELFPAY ==
[2019-05-28 13:38] VITALS: BMI 31.4
[2021-06-30 11:48] LABS: PSA,Total- Diagnostic < 0.01 ng/mL (0.0-4.0)
== END ==
PROVIDERS: PCP Family Medicine; Referring Provider Urology; Visit Provider Urology
DX: C61 Malignant neoplasm of prostate (principal)
CPT/HCPCS: 36415; 84153

== ENCOUNTER 2021-10-01 13:33 | Outpatient (CLI) | payer MEDICARE, BC, SELFPAY ==
[2019-05-28 13:38] VITALS: BMI 31.4
[2021-10-01 15:55] LABS: PSA,Total- Diagnostic < 0.01 ng/mL (0.0-4.0)
== END 2021-10-01 23:59 | disposition home or self-care (01) ==
LOC: LAB 13:37
PROVIDERS: PCP Family Medicine; Visit Provider Registered Nurse
DX: Z85.46 Personal history of malignant neoplasm of prostate (principal)
CPT/HCPCS: 36415; 84153

== ENCOUNTER → 2022-01-05 | Outpatient (CLI) | payer MEDICARE, BC, SELFPAY ==
[2019-05-28 13:38] VITALS: BMI 31.4
[2022-01-05 15:48] LABS: PSA,Total- Diagnostic < 0.01 ng/mL (0.0-4.0)
== END | disposition home or self-care (01) ==
LOC: LAB 13:49
PROVIDERS: PCP Family Medicine; Referring Provider Urology; Visit Provider Urology
DX: C61 Malignant neoplasm of prostate (principal)
CPT/HCPCS: 36415; 84153

== ENCOUNTER → 2022-04-15 | Outpatient (CLI) | payer MEDICARE, BC, SELFPAY ==
[2019-05-28 13:38] VITALS: BMI 31.4
[2022-04-15 09:31] LABS: PSA,Total- Diagnostic < 0.01 ng/mL (0.0-4.0)
== END | disposition home or self-care (01) ==
LOC: LAB 08:02
PROVIDERS: PCP Family Medicine; Referring Provider Urology; Visit Provider Urology
DX: C61 Malignant neoplasm of prostate (principal)
CPT/HCPCS: 36415; 84153

== ENCOUNTER → 2022-07-19 | Outpatient (CLI) | payer MEDICARE, BC, SELFPAY ==
[2019-05-28 13:38] VITALS: BMI 31.4
[2022-07-19 10:21] LABS: PSA,Total- Diagnostic < 0.01 ng/mL (0.0-4.0)
== END | disposition home or self-care (01) ==
LOC: LAB 08:25
PROVIDERS: PCP Family Medicine; Referring Provider Registered Nurse; Visit Provider Registered Nurse
DX: C61 Malignant neoplasm of prostate (principal)
CPT/HCPCS: 36415; 84153

== ENCOUNTER → 2022-10-14 | Outpatient (CLI) | payer MEDICARE, BC, SELFPAY ==
[2019-05-28 13:38] VITALS: BMI 31.4
[2022-10-14 09:55] LABS: PSA,Total- Diagnostic < 0.01 ng/mL (0.0-4.0)
== END | disposition home or self-care (01) ==
LOC: LAB 08:23
PROVIDERS: PCP Family Medicine; Referring Provider Registered Nurse; Visit Provider Registered Nurse
DX: C61 Malignant neoplasm of prostate (principal)
CPT/HCPCS: 36415; 84153

== ENCOUNTER → 2023-02-15 | Outpatient (CLI) | payer MEDICARE, BC, SELFPAY ==
[2019-05-28 13:38] VITALS: BMI 31.4
[2023-02-15 18:23] LABS: PSA,Total - Annual Screen < 0.01 ng/mL (0.00-4.00)
[2023-02-16 13:13] LABS: PSA,Total- Diagnostic < 0.01 ng/mL (0.0-4.0)
== END | disposition home or self-care (01) ==
LOC: LAB 17:15
PROVIDERS: PCP Family Medicine; Referring Provider Urology; Visit Provider Urology
DX: C61 Malignant neoplasm of prostate (principal)
CPT/HCPCS: 36415; 84153; G0103

== ENCOUNTER → 2023-08-18 | Outpatient (CLI) | payer MEDICARE, BC, SELFPAY ==
[2019-05-28 13:38] VITALS: BMI 31.4
[2023-08-18 11:23] LABS: PSA,Total- Diagnostic 0.02 ng/mL (0.0-4.0)
== END | disposition home or self-care (01) ==
PROVIDERS: PCP Family Medicine; Referring Provider Nurse Practitioner; Visit Provider Nurse Practitioner
DX: C61 Malignant neoplasm of prostate (principal)
CPT/HCPCS: 36415; 84153

== ENCOUNTER → 2024-02-29 | Outpatient (CLI) | payer MEDICARE, BC, SELFPAY ==
[2019-05-28 13:38] VITALS: BMI 31.4
[2024-02-29 12:29] LABS: PSA,Total- Diagnostic 0.25 ng/mL (0.0-4.0)
== END | disposition home or self-care (01) ==
LOC: LAB 11:07
PROVIDERS: PCP Family Medicine; Referring Provider Urology; Visit Provider Urology
DX: C61 Malignant neoplasm of prostate (principal)
CPT/HCPCS: 36415; 84153

== ENCOUNTER → 2024-09-04 | Outpatient (CLI) | payer MEDICARE, BC, SELFPAY ==
[2019-05-28 13:38] VITALS: BMI 31.4
[2024-09-04 14:10] LABS: PSA,Total- Diagnostic 1.16 ng/mL (0.00-4.00)
== END | disposition home or self-care (01) ==
LOC: LAB 12:28
PROVIDERS: PCP Family Medicine; Referring Provider Nurse Practitioner; Visit Provider Nurse Practitioner
DX: R97.21 Rising PSA following treatment for malignant neoplasm of prostate (principal)
CPT/HCPCS: 36415; 84153

== ENCOUNTER → 2024-12-19 | Outpatient (CLI) | payer MEDICARE, BC, SELFPAY ==
[2019-05-28 13:38] VITALS: BMI 31.4
--- NOTE | 2024-12-19 13:00 | CT_ITS ---
PROCEDURE: CTA CHEST W/WO CONTRAST 12/19/2024 REASON FOR EXAM: DILATED AORTA TECHNIQUE: CTA CHEST W/WO CONTRAST Multiplanar Sagittal and Coronal images were obtained. CONTRAST: Isovue 370 VOLUME: 100 mL One or more dose reduction techniques were used (e.g., Automated exposure control, adjustment of the mA and/or kV according to patient size, use of iterative reconstruction technique). RADIATION DOSE SUMMARY: CTDlvol: 15.5 mGy DLP: 640.93 mGycm . COMPARISON: None FINDINGS: Hardware: None Lymph nodes: Small benign-appearing mediastinal lymph nodes. Heart: Coronary artery calcifications are noted. Thoracic Aorta: There is dilatation at the root of the ascending thoracic aorta with a transverse dimension of 5 cm. Atherosclerotic plaque formation. Pulmonary Vessels: No evidence of pulmonary embolism. Lungs and Airways: Mild degree of ground-glass appearance in the posterior medial aspect of the right upper lobe as well as in the lateral anterior aspect of the right lower lobe. This may represent focal scarring. There is evidence of a 4 mm noncalcified nodule in the posterior medial segment of the right lower lobe. Pleura: No pleural effusion. Upper Abdomen: Unremarkable Bones: Degenerative changes of the thoracic spine. CT/CTA Chest W/WO Contrast IMPRESSION: Dilatation at the origin of the ascending thoracic aorta with a transverse dime nsion of 5 cm. Noncalcified nodule measuring 4 mm in the posterior medial segment of the right lower lobe. Follow-up in 6 months. Reading Location: [place] [id number]
[2024-12-19 13:18] LABS: CREATININE FINGERSTICK < 1.0 mg/dL (0.70-1.30); EGFR FINGERSTICK > 60.0000 mL/min (>60)
--- NOTE | 2024-12-20 16:40 | STRESSREP_ITS ---
Stress Test Report Exercise myocardial perfusion stress test. 74-year-old male with a history of atrial fibrillation Stress protocol: Resting EKG demonstrates atrial fibrillation with a rate of 91 bpm resting blood pressure is 134/82 mmHg. The patient exercised according to the regular Pelon protocol for a total duration of 3 minutes and 15 seconds attaining a maximum heart rate of 160 bpm which was 111% of maximum predicted heart rate; the maximum workload was 5.2 metabolic equivalents. At rest there were no ST or T wave changes noted to suggest ischemia and at peak exercise upsloping ST changes only were noted which did not meet the criteria for ischemia. No clinical angina was noted the test was terminated due to the target heart rate being achi eved/fatigue. The peak blood pressure was 164/78 mmHg. Rate-pressure product was 25,100. Myocardial perfusion protocol. 15 mCi of technetium 99m sestamibi was injected at rest. The patient exercised according to regular Pelon protocol for total duration of 3 minutes and 15 seconds and at peak exercise 44 point mCi of technetium 99m sestamibi was injected stress images were obtained stress and rest images were reconstructed in comparing the short axis vertical long and horizontal long axis. Gated images were also obtained. Perfusion SPECT analysis: Review of the stress images demonstrate normal uptake of tracer noted in all areas of the myocardium. The resting images similarly demonstrate normal uptake of tracer noted in all areas of the myocardium. No areas of reversibility are noted to suggest ischemia no previous infarct was noted. Gated SPECT analysis: The gated ejection fraction is 67%. Conclusion: Normal exercise myocardial perfusion stress test at a moderate workload Preserved ejection fraction.
== END | disposition home or self-care (01) ==
LOC: CT 12:45
PROVIDERS: PCP Family Medicine; Referring Provider Internal Medicine Cardiovascular Disease; Visit Provider Internal Medicine Cardiovascular Disease
DX: Z01.812 Encounter for preprocedural laboratory examination (principal); I77.89 Other specified disorders of arteries and arterioles
CPT/HCPCS: 71275; Q9967

== ENCOUNTER → 2024-12-20 | Outpatient (CLI) | payer MEDICARE, BC, SELFPAY ==
[2019-05-28 13:38] VITALS: BMI 31.4
--- OUTSIDE RECORDS SUMMARY | 2024-12-20 07:04 | XMS RPT_ITS | CCD ---
Author Organization [facility] Inform ion [facility] Care Team Providers Care Derrick Boat Leverman Name Role Phone Lorrie Downing MD Unavailable Clary MEJIA, Lorrie Greene Unavailable Neo MEJIA, Dr. Kofi Terrell Unavailable Karina MEJIA, Dr. Acevedo ([facility]) Unavailable Lashawn MEJIA, Dr. Ayush Chambers Unavailable Kelsea MEJIA, Dr. Benjamín Shea Unavailable [phone] Janet TRIMMER SAWYER, Kimberlyn Unavailable Pacheco MEJIA, Mika Chambers Unavailable Robert ABBOTT, Guillermina Unavailable Unavailable Jim TRIMMER SAWYER, Jessica Unavailable Unavailable Yesy LEON, Nancy Greene Unavailable Unavaila ble Amy TRIMMER SAWYER, Matilde Unavailable Unavailable Soto LEON, Fauzia Unavailable Telles TRIMMER SAWYER, Lyla Unavailable Unavailable Juan OXYGRAPH OPERATOR, Eleanor Unavailable Unavailable Kodi TRIMMER SAWYER, Thu M Unavailable Unavailab le Vess TRIMMER SAWYER, Neilee L Unavailable Unavailable Zaugg TRIMMER SAWYER, Destiny Unavailable Unavailable Unavailable Unavailable LORRIE DOWNING Admitting Unavailable LORRIE DOWNING Primary Care Unavailable LORRIE DOWNING Consulting Unavailable LORRIE DOWNING Attending Unavailable PROVIDER, UNKNOWN Consulting Unavailable PROVIDER, UNKNOWN Consulting Unavailable PROVIDER, UNKNOWN Consulting Unavailable Clary MEJIA, Dr. Pedro Primary Care Provider Radha Bob Attending Provider Radha Bob Referring Provider Taran MEJIA, Dr Reinaldo Chambers Unavailable [phone] Dr Benjamín Canseco MD Unavailable [phone] Clary MEJIA, Dr. Pedro Referring Provider [phone] Leonidas MEJIA, Dr. Foster Attending Provider Cristian Lauren Attending Unavailable Cristian Lauren Referring Unavailable Lorrie Downing Primary Care Unavailable Cristian Lauren Attending Unavailable Cristian Lauren Referring Unavailable Lorrie Downing Primary Care Unavailable Curtis Collins Referring Unavailable VaccLorrie escudero Primary Care Unavailable Curtis Collins Attending Unavailable Lorrie Downing Referring Unavailable Cristian Lauren Attending Unavailable Lorrie Downing Primary Care Unavailable Lorrie Downing Primary Care Unavailable WebbRadha Attending Unavailable Webb, Radha Referring Unavailable Medications Current Medications Medication Drug Class(es) Dates Sig (Normalized) Sig (Original) amLODIPine 10 mg oral tablet (20 sources) Dihydropyridine Calcium Channel Katarina Start: 11-21-2024 take 1 tablet by mouth at bedtime Amlodipine 10 mg tablet Active 10 mg PO AT BEDTIME November 21, 2024 10:24am Start: 10-23-2024 End: 11-21-2024 take 5 mg by mouth at bedtime Amlodipine 10 mg tablet Discontinued 5 mg PO AT BEDTIME October 23, 2024 2:07pm November 21, 2024 10:25am Start: 09-28-2024 amLODIPine 10 mg tablet ; 1/2 (one half) Tablet daily for 0 days Quantity: 90 {Tablet} Refills: 1 Ordered: 28-Sep-2024 MD Lorrie Downing Start: 28-Sep-2024 Start: 09-16-2023 amLODIPine 10 mg tablet ; 1/2 (one half) Tablet daily for 0 days Quantity: 90 {Tablet} Refills: 1 Ordered: 05-Sep-2024 MD Lorrie Downing Start: 05-Sep-2024 Start: 05-19-2023 amLODIPine 10 mg tablet ; 1/2 (one half) Tablet daily for 0 days Quantity: 90 {Tablet} Refills: 1 Ordered: 19-May-2023 MD Lorrie Downing Start: 19-May-2023 Start: 02-08-2019 End: 10-23-2024 take 1 tablet by mouth at bedtime Amlodipine 10 MG tablet Discontinued 10 mg PO AT BEDTIME February 08, 2019 12:00am October 23, 2024 2:08pm apixaban 5 mg oral tablet (20 sources) Factor Xa Inhibitor Start: 11-20-2024 Eliquis 5 mg tablet ; 1 (one) tablet q12hrs for 0 days Quantity: 60 {Tablet} Refills: 1 Ordered: 20-Nov-2024 MD Lorrie Downing Start: 20-Nov-2024 Start: 10-23-2024 take 1 tablet by ramon twice daily Apixaban (Eliquis) 5 mg tablet Active 5 mg PO TWICE A DAY October 23, 2024 12:00am Start: 09-05-2024 Eliquis 5 mg t ablet ; 1 (one) tablet q12hrs for 0 days Quantity: 60 {Tablet} Refills: 2 Ordered: 12-Sep-2024 PATRICIA Gonzales Start: 12-Sep-2024 carvedilol 12.5 mg oral tablet (20 sources) alpha-Adrenergic Katarina, beta-Adrenergic Katarina Start: 11-20-2024 carvediloL 12.5 mg tablet ; 1 Tablet q12 hrs for 0 days Quantity: 180 {Tablet} Refills: 0 Ordered: 20-Nov-2024 MD Lorrie Downing Start: 20-Nov-2024 Start: 05-08-2024 carvediloL 12. 5 mg tablet ; 1 Tablet q12 hrs for 0 days Quantity: 180 {Tablet} Refills: 1 Ordered: 05-Sep-2024 MD Lorrie Downing Start: 05-Sep-2024 Start: 02-07-2024 carvediloL 12. 5 mg tablet ; 1 Tablet q12 hrs for 0 days Quantity: 180 {Tablet} Refills: 0 Ordered: 07-Feb-2024 MD Lorrie Downing Start: 07-Feb-2024 Start: 11-07-2023 carvediloL 12. 5 mg tablet ; 1 Tablet q12 hrs for 0 days Quantity: 180 {Tablet} Refills: 0 Ordered: 07-Nov-2023 MD Lorrie Downing Start: 07-Nov-2023 Start: 08-09-2023 carvediloL 12. 5 mg tablet ; 1 Tablet q12 hrs for 0 days Quantity: 180 {Tablet} Refills: 0 Ordered: 09-Aug-2023 MD Lorrie Downing Start: 09-Aug-2023 Start: 01-10-2023 carvediloL 12. 5 mg tablet ; 1 Tablet q12 hrs for 0 days Quantity: 180 {Tablet} Refills: 1 Ordered: 10-Jan-2023 MD Lorrie Downing Start: 10-Jan-2023 Start: 02-08-2019 take 1 tablet by ramon twice daily Carvedilol 12.5 MG tablet Active 12.5 mg PO TWICE A DAY February 08, 2019 12:00am Start: 03-30-2013 End: 09-14-2013 take 1 tablet by mouth once daily CARVEDILOL, 12.5MG (Oral Tablet) ; 1 Tablet daily for 0 days Quantity: 30 {Tablet} Refills: 2 Ordered: 14-Sep-2013 PATRICIA Gonzales Start: 30-Mar-2013 End: 14-Sep-2013 Status: Inactive dapagliflozin 10 mg oral tablet (20 sources) Sodium-Glucose Cotransporter 2 Inhibitor Start: 10-31-2023 Farxiga 10 mg tablet ; 1 (one) Tablet daily for 0 days Quantity: 90 {Tablet} Refills: 3 Ordered: 07-Nov-2024 MD Lorrie Downing Start: 07-Nov-2024 Start: 10-18-2022 Farxiga 10 mg tablet ; 1 (one) Tablet daily for 0 days Quantity: 90 {Tablet} Refills: 3 Ordered: 18-Oct-2022 PATRICIA Gonzales Start: 18-Oct-2022 Start: 02-08-2022 End: 10-18-2022 take 1 tablet by mouth once daily Farxiga 5 MG Oral Tablet ; 1 (one) Tablet daily for 0 days Quantity: 30 {Tablet} Refills: 11 Ordered: 18-Oct-2022 MD Lorrie Downing Start: 08-Feb-2022 End: 18-Oct-2022 Status: Inactive hydrALAZINE hydrochloride 25 mg oral tablet (20 sources) Arteriolar Vasodilator Start: 07-26-2024 hydrALAZINE 25 mg tablet ; 1 Tablet two times daily for 0 days Quantity: 180 {Tablet} Refills: 3 Ordered: 05-Sep-2024 MD Lorrie Downing Start: 05-Sep-2024 Start: 06-25-2024 hydrALAZINE 25 mg tablet ; 1 Tablet two times daily for 0 days Quantity: 60 {Tablet} Refills: 5 Ordered: 25-Jun-2024 MD Lorrie Downing Start: 25-Jun-2024 Start: 05-21-2024 hydrALAZINE 25 mg tablet ; 1 Tablet two times daily for 0 days Quantity: 60 {Tablet} Refills: 0 Ordered: 21-May-2024 MD Lorrei Downing Start: 21-May-2024 Start: 02-08-2019 take 1 tablet by ramon th twice daily Hydralazine 25 MG tablet Active 25 mg PO TWICE A DAY February 08, 2019 12:00am losartan potassium 100 mg oral tablet (20 sources) Angiotensin 2 Receptor Katarina Start: 02-08-2019 losartan 100 mg tablet ; 1 Tablet daily for 0 days Quantity: 90 {Tablet} Refills: 3 Ordered: 05-Nov-2024 MD Lorrie Downing Start: 05-Nov-2024 metFORMIN hydrochloride 1000 mg oral tablet (20 sources) Biguanide Start: 02-08-2019 metFORMIN 1,00 0 mg tablet ; 1 Tablet two times daily for 0 days Quantity: 180 {Tablet} Refills: 0 Ordered: 20-Nov-2024 MD Lorrie Downing Start: 20-Nov-2024 Start: 09-21-2013 End: 09-21-2013 take 1 tablet by mouth twice daily METFORMIN HCL, 500MG (Oral Tablet) ; 1 Tablet twice per day for 0 days Quantity: 60 {Tablet} Refills: 4 Ordered: 21-Sep-2013 PATRICIA Mackey Start: 21-Sep-2013 End: 21-Sep-2013 Status: Inactive tamsulosin hydrochloride 0.4 mg oral capsule (20 sources) alpha-Adrenergic Katarina Start: 11-27-2024 tamsu losin 0.4 mg capsule ; 1 (one) Capsule daily for 0 days Quantity: 90 {Capsule} Refills: 3 Ordered: 27-Nov-2024 MD Lorrie Downing Start: 27-Nov-2024 Start: 02-08-2019 tamsulosin 0.4 mg capsule ; 1 (one) Capsule daily for 0 days Quantity: 90 {Capsule} Refills: 3 Ordered: 05-Sep-2024 MD Lorrie Downing Start: 05-Sep-2024 triamcinolone acetonide 0.001 mg/mg topical ointment (20 sources) Corticosteroid Start: 08-28-2018 Triamcinolone Acetonide 0.1 % External Ointment ; 1 (one) Application Application aaa bid for 0 days Quantity: 45 {Gram} Refills: 2 Ordered: 28-Aug-2018 Janet PATRICIA Johnla Start: 28-Aug-2018 Completed/Discontinued Medications Medication Drug Class(es) Dates Sig (Normalized) Sig (Original) acetaminophen 325 mg / HYDROcodone bitartrate 5 mg oral tablet (8 sources) Opioid Agonist Start: 02-14-2019 End: 02-21-2019 Hydrocodone-Acetami nophen 1 EACH tablet Discontinued 1 NMA PO EVERY 4 HOURS NEEDED as needed for Pain 14 February 14, 2019 February 18, 2019 12:00am February 21, 2019 12:06am Start: 02-14-2019 End: 02-21-2019 Hydrocodone-Acetaminophen Di scontinued 1 EACH PO EVERY 4 HOURS NEEDED 14 February 14, 2019 February 20, 2019 11:06pm amoxicillin 875 mg / clavulanate 125 mg oral tablet (20 sources) Penicillin-class Antibacterial Start: 04-13-2023 End: 05-19-2023 amoxicillin 875 mg-potassium clavulanate 125 mg tablet ; 1 (one) tablet bid for 0 days Quantity: 10 {Tablet} Refills: 0 Ordered: 19-May-2023 Janet PATRICIA Sofia Start: 13-Apr-2023 End: 19-May-2023 Status: Inactive Start: 05-10-2019 End: 08-07-2019 take 1 tablet by mouth twice daily Amoxicillin-Pot Clavulanate 875-125 MG Oral Tablet ; 1 (one) Tablet Tablet bid for 0 days Quantity: 20 {Tablet} Refills: 0 Ordered: 07-Aug-2019 PATRICIA Gonzales Start: 10-May-2019 End: 07-Aug-2019 Status: Inactive aspirin 81 mg delayed release oral tablet (20 sources) Platelet Aggregation Inhibitor, Nonsteroidal Anti-inflammatory Drug take 1 tablet by mouth once daily Aspirin EC Low Strength 81 MG Oral Tablet Delayed Release ; 1 daily (81 MG) Status: Inactive ciprofloxacin 500 mg oral tablet (8 sources) Quinolone Antimicrobial Start: 2018 End: 2024 take 1 tablet by mouth twice daily Ciprofloxacin Hcl 500 MG tablet Discontinued 500 mg PO TWICE A DAY February 14, 2019 12:00am October 23, 2024 2:08pm colchicine 0.6 mg oral tablet (20 sources) End: 2009 COLCHICINE, 0.6MG (Oral Tablet) ; (0.6 MG) End: 16-Mar-2010 Status: Inactive docusate sodium 100 mg oral capsule (8 sources) Start: 2018 End: 2024 take 1 capsule by mouth twice daily Docusate Sodium 100 MG capsule Discontinued 100 mg PO TWICE A DAY February 14, 2019 12:00am October 23, 2024 2:08pm 0.5 ml dulaglutide 3 mg/ml auto-injector (20 sources) GLP-1 Receptor Agonist Start: 2018 End: 2018 Trulicity 1.5 MG/0.5ML Subcutaneous Solution Pen-injector ; 1 (one) Solution Pen-injector weekly for 0 days Quantity: 4 {Pre-filled_Pen_Sy ringe} Refills: 11 Ordered: 10-May-2019 PATRICIA Gonzales Start: 28-Aug-2018 End: 10-May-2019 Status: Inactive empagliflozin 25 mg oral tablet (20 sources) Sodium-Glucose Cotransporter 2 Inhibitor Start: 2021 End: 2021 take 1 tablet by mouth once daily Jardiance 25 MG Oral Tablet ; 1 (one) Tablet daily for 0 days Quantity: 30 {Tablet} Refills: 3 Ordered: 17-Mar-2022 MD Lorrie Downing Start: 25-Jan-2022 End: 17-Mar-2022 Status: Inactive glipiZIDE 5 mg oral tablet (20 sources) Sulfonylurea Start: 2018 End: 2024 glipiZIDE 5 mg tablet ; 1 (one) Tablet Tablet daily 30 min before largest meal for 0 days Quantity: 30 {Tablet} Refills: 3 Ordered: 05-Sep-2024 PATRICIA Gonzales Start: 16-May-2019 End: 05-Sep-2024 Status: Inactive glyBURIDE 5 mg oral tablet (20 sources) Sulfonylurea Start: 2016 End: 2018 take 1 tablet by mouth once daily GlyBURIDE 5 MG Oral Tablet ; 1 (one) Tablet Tablet daily for 0 days Quantity: 30 {Tablet} Refills: 6 Ordered: 01-Aug-2018 PATRICIA Gonzales Start: 24-Dec-2016 End: 01-Aug-2018 Status: Inactive hydroCHLOROthiazide 25 mg oral tablet (20 sources) Thiazide Diuretic Start: 2012 End: 2012 take 1 tablet by mouth once daily HYDROCHLOROTHIAZID E, 25MG (Oral Tablet) ; 1 Tab daily for 0 days Quantity: 30 {Tab} Refills: 0 Ordered: 30-Mar-2013 MD Lorrie Downing Start: 20-Oct-2012 End: 30-Mar-2013 Status: Inactive indomethacin 25 mg oral capsule (20 sources) Nonsteroidal Anti-inflammatory Drug Start: 2010 End: 2012 take 1 capsule by mouth twice daily as needed INDOMETHACIN, 25MG (Oral Capsule) ; 1 Capsule bid, prn with food for 0 days Quantity: 30 {Capsule} Refills: 3 Ordered: 30-Mar-2013 PATRICIA Gonzales Start: 24-May-2011 End: 30-Mar-2013 Status: Inactive lisinopril 40 mg oral tablet (20 sources) Angiotensin Converting Enzyme Inhibitor Start: 2011 End: 2012 take 1 tablet by mouth once daily LISINOPRIL, 40MG (Oral Tablet) ; 1 Tablet daily for 0 days Quantity: 30 {Tablet} Refills: 11 Ordered: 29-May-2013 PATRICIA Gonzales Start: 27-Apr-2012 End: 29-May-2013 Status: Inactive 24 hr metoprolol succinate 100 mg extended release oral tablet (20 sources) beta-Adrenergic Katarina Start: 2011 End: 2012 take 1 tablet by mouth once daily METOPROLOL SUCCINATE ER, 100MG (Oral Tablet Extended Release 24 Hour) ; 1 Tablet ER 24HR daily for 0 days Quantity: 90 {Tablet_ER_24HR} Refills: 3 Ordered: 30-Mar-2013 PATRICIA Gonzales Start: 10-Jan-2012 End: 30-Mar-2013 Status: Inactive penicillin v potassium 500 mg oral tablet (20 sources) Start: 2020 End: 2020 take 1 tablet by mouth three times daily Penicillin V Potassium 500 MG Oral Tablet ; 1 (one) Tablet three times daily for 10 days Quantity: 30 {Tablet} Refills: 0 Ordered: 09-Apr-2021 Elfego PATRICIA Lyla Start: 09-Apr-2021 End: 19-Apr-2021 Status: Inactive terazosin 2 mg oral capsule (20 sources) alpha-Adrenergic Katarina Start: 2011 End: 2012 take 1 capsule by mouth once daily at bedtime TERAZOSIN HCL, 2MG (Oral Capsule) ; 1 Capsule qhs for 0 days Quantity: 30 {Capsule} Refills: 0 Ordered: 17-Aug-2012 Janet PATRICIA Kimberlyn Start: 10-Apr-2012 End: 17-Aug-2012 Status: Inactive Problems Active Problems Problem Classification Problem Date Documented Date Episodic/Chronic Acute bronchitis (20 sources) Acute bronchitis; Translations: [Acute bronchitis, unspecified] 08-10-2017 Episodic Allergic reactions (20 sources) Eczema; Translations: [Dermatitis, unspecified] 03-21-2020 Episodic Cancer of prostate (20 sources) Malignant tumor of prostate; Translations: [Malignant neoplasm of prostate] Onset: 02-08-2019 04-20-2023 Chronic Comment on above: had prostatectomy Cardiac dysrhythmias (20 sources) Multiple premature ventricular complexes; Translations: [Ventricular premature depolarization] Onset: 11-21-2024 04-20-2023 Chronic Diabetes mellitus with complications (20 sources) Neuropathy due to type 2 diabetes mellitus; Translations: [Type 2 diabetes mellitus with diabetic neuropathy, unspecified] 04-20-2023 Chronic Diabetes mellitus without complication (20 sources) Type 2 diabetes mellitus without complication; Translations: [Type 2 diabetes mellitus without complications] 04-20-2023 Chronic Disorders of teeth and jaw (20 sources) Infection of tooth; Translations: [Periapical abscess without sinus] 04-09-2021 Episodic Essential hypertension (20 sources) Hypertensive disorder; Translations: [Essential (primary) hypertension] Onset: 11-21-2024 04-20-2023 Chronic Gout and other crystal arthropathies (20 sources) Acute gouty arthropathy 05-24-2011 Chronic Hyperplasia of prostate (20 sources) Benign prostatic hypertrophy with outflow obstruction; Translations: [Benign prostatic hyperplasia with lower urinary tract symptoms] 04-20-2023 Chronic Immunizations and screening for infectious disease (20 sources) Requires vaccination; Translations: [Encounter for immunization] 05-15-2014 Episodic Other aftercare (20 sources) Drug indicated; Translations: [Other intermediate (current) drug therapy] 08-19-2010 Episodic Other circulatory disease (20 sources) Disorder of thoracic aorta; Translations: [Other specified disorders of arteries and arterioles] 09-19-2024 Chronic Comment on above: Echo 09/12/2024 aorti c root dilated at 4.3 cm. Proximal ascending aorta is dilated at 4.5 cm. Other circulatory disease (2 sources) Other specified disorders of arteries and arterioles; Translations: [Other specified disorders of arteries and arterioles] Onset: 11-21-2024 Chronic Other endocrine disorders (20 sources) Hyperparathyroidism; Translations: [Other hyperparathyroidism] 04-20-2023 Chronic Other nutritional; endocrine; and metabolic disorders (20 sources) Obesity; Translations: [Obesity, unspecified] 04-20-2023 Chronic Other nutritional; endocrine; and metabolic disorders (20 sources) Body mass index 30+ - obesity; Translations: [Body mass index (BMI) 34.0-34.9, adult] 08-28-2018 Chronic Other screening for suspected conditions (not mental disorders or infectious disease) (20 sources) Patient encounter status; Translations: [Encounter for screening for malignant neoplasm of colon] Onset: 09-18-2024 03-21-2020 Episodic Pneumonia (except that caused by tuberculosis or sexually transmitted disease) (20 sources) Community acquired pneumonia; Translations: [Pneumonia, unspecified organism] 04-13-2023 Episodic Residual codes; unclassified (20 sources) Influenza vaccination declined; Translations: [Immunization not carried out because of patient refusal] 04-20-2023 Episodic Residual codes; unclassified (20 sources) Patient non-compliant - refused service ; Translations: [Procedure and treatment not carried out because of patient's decision for other reasons] 04-20-2023 Episodic Comment on above: does not come for ro utine labs and check ups Residual codes; unclassified (20 sources) Noncompliance with treatment; Translations: [Personal history of noncompliance with medical treatment, presenting hazards to health] 04-20-2023 Episodic Comment on above: no eye testing Residual codes; unclassified (20 sources) Non-smoker; Translations: [Other specified health status] 04-20-2023 Episodic Unclassified (20 sources) Follow up for multiple chronic conditions - The patient is here for follow-up of hypertension, diabetes and obesity. The patient usually takes the prescribed medications. No side effects noted. The patient has an active lifestyle but no regular exercise program. The patient's glucose levels are monitored on rare occasion and out of office blood pressure checks occur rarely. 10-18-2022 Unclassified (20 sources) [facility] Visit - care plan reviewed today-updated in consultation with pt.. risk score reviewed today. risk score 41 %. 12-26-2020 Unclassified (20 sources) [ADDITIONAL REASON] Follow up for multiple chronic conditions - The patient is here for follow-up of hypertension, diabetes and obesity. The patient usually takes the prescribed medications. No side effects noted. The patient has an active lifestyle but no regular exercise program. The patient's glucose levels are monitored on rare occasion and out of office blood pressure checks occur rarely. 12-26-2020 Unclassified (20 sources) [ADDITIONAL REASON] MCR Well Adult - In general the patient feels well with no complaints, has good energy level and is sleeping well. The patient takes no supplemental vitamins & iron. The patient does not exercise. The patient denies having trouble with bathing, dressing/grooming, toileting, preparing meals and ambulating. The patient denies having trouble with grocery shopping, driving, use of telephone, housework, laundry, preparing/taking medications and finances. The patient has a Healthcare Power of Oral And Maxillofacial Surgery Resident and a Living Will. 12-26-2020 Unclassified (19 sources) [facility] Visit - care plan reviewed today-updated in consultation with pt.. risk score reviewed today. risk score 38.9 %. 08-29-2020 Unclassified (20 sources) [ADDITIONAL REASON] [facility] Visit - care plan reviewed today-updated in consultation with pt.. risk score reviewed today. risk score 35 %. 06-20-2020 Unclassified (20 sources) [facility] Visit - care plan reviewed today-updated in consultation with pt.. risk score reviewed today. risk score 35 %. 08-24-2019 Unclassified (20 sources) [ADDITIONAL REASON] Follow up for multiple chronic conditions - The patient is here for follow-up of hypertension, diabetes and obesity. The patient usually takes the prescribed medications. No side effects noted. The patient has an active lifestyle but no regular exercise program. The patient's glucose levels are monitored on rare occasion and out of office blood pressure checks occur rarely. Note for Multiple chronic conditions follow-up: -No cardiac complaints. 08-24-2019 Unclassified (19 sources) [facility] Visit - care plan reviewed today-updated in consultation with pt.. risk score reviewed today. risk score 21 %. 05-16-2019 Unclassified (20 sources) MCR Well Adult - In general the patient feels well with no complaints, has good energy level and is sleeping well. The patient takes no supplemental vitamins & iron. The patient does not exercise. The patient denies having trouble with bathing, dressing/grooming, toileting, preparing meals and ambulating. The patient denies having trouble with grocery shopping, driving, use of telephone, housework, laundry, preparing/taking medications and finances. The patient has a Healthcare Power of Oral And Maxillofacial Surgery Resident and a Living Will. 08-28-2018 Unclassified (20 sources) [ADDITIONAL REASON] [facility] Visit - care plan reviewed today-updated in consultation with pt.. risk score reviewed today. risk score 48 %. 08-28-2018 Unclassified (20 sources) Follow up consultation - The patient is here to follow-up after hospitalization on : (12-16-16). Note for Consultation follow-up: -Overnight stay for chest pain work up. Only problem discovered was PVC's. No med changes. Had normal echo and stress test and 48 hr Holter. 12-24-2016 Unclassified (20 sources) Follow up for multiple chronic conditions - The patient is here for follow-up of hypertension and diabetes. The patient usually takes the prescribed medications. No side effects noted. The patient has an active lifestyle but no regular exercise program. The patient's out of office blood pressure checks occur rarely. The patient states that weight has decreased (down 22#). The patient states that the disease has no overall impact. 01-15-2016 Unclassified (20 sources) Follow-up for multiple chronic conditions (RAH) - The patient is here for follow-up of hypertension and diabetes. The patient always takes the prescribed medications. No side effects noted. The patient has low activity level and no regular exercise program. The patient's out of office blood pressure checks occur rarely (can feel if bp is high and he tries to rest. Reports fluctuation from 130/80 to 180/100.). The patient has experienced changes in vision since the last visit (buys generic reading glasses), but has not been seen by an equipment application specialist in the past 12 months (never), had numbness in the feet, had tingling in the feet or had burning in the feet. 05-15-2014 Unclassified (20 sources) Follow up for multiple chronic conditions - The patient is here for follow-up of hypertension. Note for Multiple chronic conditions follow-up: -He was not feeling well for past 3 weeks, discovered blood pressure was 170/113 at home. He was a walkin at the office yesterday and bp was 200/[address] Mcarthur advised adding another dose of carvedilol 12.5mg to increase to bid dosing. He states he feels better after taking the carvedilol. Home bp reported as 160/106. 05-30-2013 Unclassified (20 sources) Follow-up for multiple chronic conditions (RAH) - The patient is here for follow-up of hypertension. The patient always takes the prescribed medications. No side effects noted. The patient has low activity level and no regular exercise program. The patient's out of office blood pressure checks occur rarely. The patient's last lipid profile was (09/11/09). Note for Multiple chronic conditions follow-up: This note has been reviewed and approved in it's entirety by me. 04-27-2012 Unclassified (20 sources) Follow up for multiple chronic conditions - The patient is here for follow-up of hypertension and other condition(s) (hyperparathyroidism) . The patient always takes the prescribed medications. No side effects noted. The patient has an active lifestyle but no regular exercise program. The patient's out of office blood pressure checks occur rarely. 05-24-2011 Unclassified (20 sources) Follow up for multiple chronic conditions - The patient is here for follow-up of hypertension. The patient always takes the prescribed medications. No side effects noted. The patient has an active lifestyle but no regular exercise program. The patient's out of office blood pressure checks occur frequently. 09-17-2010 Unclassified (20 sources) [ADDITIONAL REASON] [facility] Visit - care plan reviewed today-updated in consultation with pt.. risk score reviewed today. risk score 41 %. 12-26-2020 Unclassified (20 sources) [ADDITIONAL REASON] [facility] Visit - care plan reviewed today-updated in consultation with pt.. risk score reviewed today. risk score 38.9 %. 08-29-2020 Unclassified (20 sources) Follow up for multiple chronic conditions - The patient is here for follow-up of hypertension, diabetes and obesity. The patient usually takes the prescribed medications. No side effects noted. The patient has an active lifestyle but no regular exercise program. The patient's glucose levels are monitored on rare occasion and out of office blood pressure checks occur rarely. Note for Multiple chronic conditions follow-up: -No cardiac complaints. 08-24-2019 Unclassified (20 sources) [ADDITIONAL REASON] [facility] Visit - care plan reviewed today-updated in consultation with pt.. risk score reviewed today. risk score 21 %. 05-16-2019 Unclassified (19 sources) [ADDITIONAL REASON] Follow up consultation - The patient is here to follow-up after hospitalization on : (12-16-16). Note for Consultation follow-up: -Overnight stay for chest pain work up. Only problem discovered was PVC's. No med changes. Had normal echo and stress test and 48 hr Holter. 12-24-2016 Unclassified (17 sources) [facility] Visit - care plan reviewed today-updated in consultation with pt.. risk score reviewed today. risk score 48 %. 08-28-2018 Unclassified (18 sources) MCR Well Adult - In general the patient feels well with no complaints, has good energy level and is sleeping well. The patient has a balanced diet. The patient exercises daily (1.5 miles a day walking in his home) and sleeps 6 (6.5 broken up) hours per night. The patient denies having trouble with bathing, dressing/grooming, toileting, preparing meals and ambulating. The patient denies having trouble with grocery shopping, driving, use of telephone, housework, laundry, preparing/taking medications and finances. The patient has a Healthcare Power of Oral And Maxillofacial Surgery Resident and a Living Will. Note for MCR Well Adult: -He makes a lot of baked goods. 09-05-2024 Unclassified (18 sources) [ADDITIONAL REASON] Follow up for multiple chronic conditions - The patient is here for follow-up of hypertension, diabetes and obesity. The patient usually takes the prescribed medications. No side effects noted. The patient has an active lifestyle but no regular exercise program. The patient's glucose levels are monitored on rare occasion and out of office blood pressure checks occur rarely. Note for Multiple chronic conditions follow-up: -He frequently cancels his routine visits. Last eval in 2022. 09-05-2024 Unclassified (5 sources) Follow up for multiple chronic conditions - The patient is here for follow-up of hypertension, diabetes and obesity. The patient usually takes the prescribed medications. No side effects noted. The patient has an active lifestyle but no regular exercise program. The patient's glucose levels are monitored on rare occasion and out of office blood pressure checks occur rarely. Note for Multiple chronic conditions follow-up: -He frequently cancels his routine visits. Last eval in 2022. 09-05-2024 Unclassified (5 sources) [ADDITIONAL REASON] MCR Well Adult - In general the patient feels well with no complaints, has good energy level and is sleeping well. The patient has a balanced diet. The patient exercises daily (1.5 miles a day walking in his home) and sleeps 6 (6.5 broken up) hours per night. The patient denies having trouble with bathing, dressing/grooming, toileting, preparing meals and ambulating. The patient denies having trouble with grocery shopping, driving, use of telephone, housework, laundry, preparing/taking medications and finances. The patient has a Healthcare Power of Oral And Maxillofacial Surgery Resident and a Living Will. Note for MCR Well Adult: -He makes a lot of baked goods. 09-05-2024 Unclassified (10 sources) Follow up for multiple chronic conditions - The patient is here for follow-up of hypertension, diabetes and obesity. The patient usually takes the prescribed medications. No side effects noted. The patient has an active lifestyle but no regular exercise program. The patient's glucose levels are monitored on rare occasion and out of office blood pressure checks occur rarely. Note for Multiple chronic conditions follow-up: -Had echo that was normal. Here to re-evaluate a fib. 10-10-2024 Past or Other Problems Problem Classification Problem Date Documented Da te Episodic/Chronic Unclassified (20 sources) MCR Well Adult - In general the patient feels well with no complaints, has good energy level and is sleeping well. The patient has a balanced diet. The patient exercises daily (1.5 miles a day walking) and sleeps 6 (6.5 broken up) hours per night. The patient denies having trouble with bathing, dressing/grooming, toileting, preparing meals and ambulating. The patient denies having trouble with grocery shopping, driving, use of telephone, housework, laundry, preparing/taking medications and finances. The patient has a Healthcare Power of Oral And Maxillofacial Surgery Resident and a Living Will. 04-20-2023 Unclassified (20 sources) Cough - The onset of the cough has been sudden and has been occurring for 1 week. The course has been increasing. The cough is characterized as dry. Associated symptoms include dyspnea (short of breath with exertion) and weight loss, while there is no fever or long history of smoking. 04-13-2023 Unclassified (20 sources) MCR Well Adult - In general the patient feels well with no complaints, has good energy level and is sleeping well. The patient has a balanced diet. The patient exercises daily and sleeps 7 hours per night. The patient denies having trouble with bathing, dressing/grooming, toileting, preparing meals and ambulating. The patient denies having trouble with grocery shopping, driving, use of telephone, housework, laundry, preparing/taking medications and finances. The patient has a Healthcare Power of Oral And Maxillofacial Surgery Resident and a Living Will. 02-08-2022 Unclassified (20 sources) Cough - The onset of the cough has been sudden and has been occurring in a persistent pattern for 4 weeks. The cough is characterized as dry. The cough occurs all the time. The cough is aggravated by the supine posture. Associated symptoms include fever and night sweats, while there is no chest pain or long history of smoking. 05-10-2019 Unclassified (20 sources) Cold Symptoms - Symptoms include productive cough and general malaise, but do not include nasal congestion, ear pain, sore throat or fever. The onset was gradual 10 day(s) ago. The patient describes this as moderate in severity and worsening. Current treatment includes home remedies. Risk factors do not include smoking. 08-10-2017 Unclassified (20 sources) elevated bp - Stopped taking metoprolol several months ago because he seemed to notice more gout flares while he was taking it. Since stopping med he is not experiencing gout pain. He is feeling more dizzy and having headaches and his bp was elevated yesterday when he checked it. He is not taking the prescribed HCTZ either. 03-30-2013 Unclassified (20 sources) Hypertension - The onset of the hypertension has been gradual. The hypertension has been occurring in a continuous pattern for months. The course has been increasing. The symptoms are characterized as headache. Habits include adequate exercise, non-smoker, medications as directed and home blood pressure monitoring, but there is no use of alcohol. 03-16-2010 Results Test Name Value Interpretation Reference Range Facility 12 Lead EKG performed by [facility] on 11-21-2024 12 Lead EKG performed by [facility] [address] [place] [address] 12 Lead EKG performed by [facility] 11/21/24 1019 MR#: [id number] Acct: [id number] Name: DESIRE JACOBO Rep #: [id number] : 1950 74 From: Cristian Lauren MD Attending Dr: Dr. 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 ABNORMAL Electronically signed on 11/21/2024 at 16:05 by Cristian Lauren [facility] Software Version 8610 11/21/24 1608 Date Cristian Lauren MD CC: Dr. Lorrie Downing MD Date Dictated: 11/21/24 1019 Date Transcribed: 11/21/241018 [employer]: [place] Signed Normal [facility] Cardiology Visit Reporton Cardiology Visit Report [facility] [address] [place] [address] OFFICE VISIT Date of Service: 11/21/24 MR#: [id number] Acct: [id number] Name: DESIRE JACOBO Rep #: [id number] : 1950 Provider: Dr. Cristian Lauren MD Age/Sex: 74/M Location: [facility] Status: Signed HPI HPI History of Present Illness Details: Pleasant 74-year-old man with a history of hypertension who went in for routine physical and was noted to have an irregular heartbeat. He denies any chest pain or shortness of breath or paroxysmal nocturnal dyspnea pedal edema he has had no neck arm or jaw discomfort to suggest angina. He still works a few days a week. He has been compliant with all his medications. Due to the fact that he was not sure whether this was A-fib he was sent to us for further evaluation and management. His physical exam demonstrates clear lung da silva regular rate and rhythm and no pedal edema. His electrocardiogram does confirm atrial fibrillation with a rate of 71 bpm poor R wave progression. 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 Accompanied by: Self Is patient in pain?: No Allergies No Known Allergies Allergy (Verified 11/21/24 10:24) Medications ???Medication ???Instructions ???Recorded ???Confirmed ???Type carvedilol 12.5 mg tablet 12.5 mg PO BID bp 02/08/1911/21/ 5 History hydralazine 25 mg tablet 25 mg PO BID 02/08/19 11/21/24 His tory losartan 100 mg tablet 100 mg PO DAILY bp 02/08/19 History metformin 1,000 mg tablet 1,000 mg PO BID diabetes 02/08/19 11/21/24 History tamsulosin 0.4 mg capsule 0.4 mg PO QHS prostate 02/08/19 History apixaban 5 mg tablet (Eliquis) 5 mg PO BID 10/23/24 11/21/24 Hist ory dapagliflozin propanediol 10 mg 10 mg PO QDAY 10/23/24 11/21/24 Hi story tablet (Artga) amlodipine 10 mg tablet 10 mg PO QHS bp 11/21/24 11/21/24 History Have you fallen in the past year?: No PFS Medical History Obesity (BMI 30.0-34.9) Atrial fibrillation Enlarged thoracic aorta Frequent PVCs Type 2 diabetes mellitus without complication Diabetic peripheral neuropathy Hyperparathyroidism Diabetes Prostate CA HTN (hypertension) Surgical History History of colonoscopy ( 09/02/14) History of prostatectomy ( 02/14/19) Family History Mother Cervical cancer Social History Smoking Status: Never smoker alcohol intake: current alcohol intake frequency: holidays/special occasions only substance use type: does not use ROS Const Const: Negative for fatigue, weakness, headache(s), daytime sleepiness or difficulty sleeping ENT ENT: Negative for headache(s), dizziness or Nosebleed/epistaxis Cardio Chest Pain: No Palpitations: No Edema: None Resp Respiratory: Negative for SOB with activity, SOB at rest, SOB orthopnea SOB lying down or Cough GI GI: Negative nausea, vomiting or heartburn Neuro Neuro: Negative for dizziness, lightheadedness, near syncope, headache(s) or weakness Endo Endo: Negative for fatigue Cardiology Exam Const Appearance: cooperative, healthy appearing, no acute distress, well developed and well groomed Nutritional Appearance: average body habitus and well nourished Orientation: alert, awake and oriented x3 Head Head: normal to inspection, normocephalic and atraumatic Ears: hearing grossly normal bilaterally and external ears normal Nose: external nose normal, nares normal, nasal mucous membranes and turbinates normal, septum normal and no nasal discharge Face and Sinus: face symmetric Mouth: oral mucosae normal, tongue normal, oropharynx normal and moist mucous membranes Teeth and gingiva: dentition normal Throat: posterior oropharynx normal, tonsils normal and uvula midline Eyes General: appearance normal, both eyes and all related structures Eyelids: eyelids normal Conjunctivae: conjunctivae normal Pupils: PERRL, normal by confrontation and accommodation normal EOM: EOM intact bilaterally Neck Neck: normal visual inspection, trachea midline and no JVD JVD: +5 Carotids: normal carotid upstroke and bounding pulses Chest Chest inspection: normal inspection of the chest, symmetric chest movement and normal respiratory effort Auscultation: Bilateral: Clear to Auscultation Cardio Palpation: normal PMI Rhythm: irregularly irregular Heart sounds: S1 normal, S2 normal and (more content not included)... Normal [facility] CV ECHO COMPLETE CV ECHO COMPLETE [facility] [address] [address] Patient: DESIRE JACOBO Phone#: : 1950 Age: 74 Gender: M Pt. Type: Out Account: [id number] Location: [facility] Ordering: LORRIE DOWNING Exam Date: 09/12/2024/7:52 Family Phys: Charge Code: [id number] Physician: Red Willow Order #: [id number] Dose#: PROCEDURE: ECHOCARDIOGRAM WITH DOPPLER AND COLOR FLOW HISTORY: Patient is 74-year-old male with atrial fibrillation INDICATIONS: Afib COMPARISON: None. TECHNIQUE: A 2-D ultrasound, color spectral Doppler and M-mode evaluation of the heart and great vessels. PATIENT MEASUREMENTS: Height (in.): 71 BSA: 2.24 Weight (lbs.): 230 BP: 141/87 [employer]: PARVEZ M MODE 2D MEASUREMENTS AND CALCULATIONS: LVIDd: 5.46 cm LVIDs: 4.12 cm IVSd: 1.32 cm LVPWd: 1.37 cm LVOT diam: 2.25 cm FS: 24.46 % Ao Root diam: 3.79 cm LA diam: 4.3 cm LA Volume Index: 26 mL/m2 LA A4 Area: 18.43 cm2 RA A4 Area: 27.6 cm RVDd: 4.5 cm TAPSE: 23 mm DOPPLER MEASUREMENTS AND CALCULATIONS MITRAL MV E MAX flaco: 1.15 m/s, 1.10 m/s MV A MAX flaco: 0.34 m/s MV E-A ratio: 3.36 MVA VTI 2.78 cm2 MV V2 max: 1.31 m/s MV max P.93 mm[Hg] Continued Report - Page 2 of 3 Patient: DESIRE JACOBO Phone#: : 1950 Age: 74 Gender: M Pt. Type: Out Account: [id number] Location: [facility] Ordering: LORRIE HIDALGOKENA Exam Date: 09/12/2024/7:52 Family Phys: Charge Code: [id number] Physician: Red Willow Order #: [id number] Dose#: MV V2 mean: 0.77 m/s MV mean P.94 mm[Hg] MV V2 VTI: 28.10 cm MV PHT: 89.71 ms MVA PHT 2.45 cm2 Lat Peak E' Flaco 11 cm/sec Septal Peak E' FLACO 6 cm/sec E/E' lateral 11 E/E' be 18.4 AORTIC Ao V2 max: 1.19 m/s Ao max P.76 mm[Hg] Ao V2 mean: 0.85 m/s Ao mean P.32 mm[Hg] Ao V2 VTI: 26.08 cm LORETTA (V Max): 3.05 cm2 LORETTA (VTI): 3.00 cm2 LV V1 Max 0.92 m/s LV V1 Max PG 3.37 mm[Hg] LV V1 Mean PG 1.82 mm[Hg] LV V1 mean 0.62 m/s LV V1 VTI 19.68 cm PULMONIC PA V2 Max 0.64 m/s PA Max PG 1.63 mm[Hg] TRICUSPID TR Max Flaco 2.51 m/s TR max PG 25.16 mm[Hg] RVSP 40 mm Hg 2D/M-MODE AND COLOR FLOW LEFT VENTRICLE: There is mild concentric left ventricular hypertrophy. Left ventricle is normal in size. Systolic ejection fraction is 55-60%. There are no regional wall motion abnormality seen. Can not assess diastolic function due to EA fusion. WALL MOTION: 1 - Basal anterior: Normal. 7 - Mid anterior: Normal. 13 - Apical anterior: Normal. 2 - Basal anteroseptal: Normal. 8 - Mid anteroseptal: Normal. 14 - Apical septal: Normal. 3 - Basal inferoseptal: Normal. 9 - Mid inferoseptal: Normal. 15 - Apical inferior: Normal. 4 - Basal inferior: Normal. 10-Mid inferior: Normal. 16 - Apical lateral: Normal. 5 - Basal inferolateral: Normal. 11-Mid inferolateral: Normal. 6 - Basal anterolateral: Normal. 12-Mid anterolateral: Normal. Continued Report - Page 3 of 3 Patient: DESIRE JACOBO Phone#: : 1950 Age: 74 Gender: M Pt. Type: Out Account: [id number] Location: [facility] Ordering: LORRIE HIDALGOKENA Exam Date: 09/12/2024/7:52 Family Phys: Charge Code: [id number] Physician: Red Willow Order #: [id number] Dose#: RIGHT VENTRICLE: Right ventricle is mildly enlarged with normal systolic function LEFT ATRIUM: Left atrium is normal in size. RIGHT ATRIUM: Right atrium is moderately enlarged. ATRIAL SEPTUM: There is no large interatrial shunt seen. PFO was not assessed. MITRAL VALVE: Mitral valve appears normal structure. There is trivial regurgitation no stenosis seen. TRICUSPID VALVE: Tricuspid valve is normal structure. There is no regurgitation or stenosis seen AORTIC VALVE: Aortic valve is trileaflet. Leaflets appear minimally restricted mobility. There is no regurgitation or stenosis seen. PULMONIC VALVE: Pulmonic valve is inadequately visualized. There is trivial regurgitation no stenosis seen AORTIC ROOT: Aortic root is dilated 4.3 cm. Proximal ascending aorta is dilated 4.5 cm AORTIC ARCH: Aortic arch normal in size DESC THORACIC AORTA: Inadequately visualized. Doppler shows normal flow. IVC/SVC: IVC is dilated with less than 50% collapse of inspiration. Estimated atrial pressure is 15 mm Hg PULMONARY VEINS: Systolic flow blunting seen. PERICARDIUM: There is no pericardial effusion seen. CONCLUSION: 1. There is mild concentric left ventricular hypertrophy. Left ventricle is normal in size. Systolic ejection fraction is 55-60% with normal wall motion. 2. Right atrium is moderately enlarged 3. There are no significant valvular dysfunction seen. 4. Aortic valve is trileaflet. Leaflets appear minimally restricted mobility. There is no significant regurgitation or stenosis seen. 5. Right ventricle is mildly enlarged with normal systolic function. 6. Aortic root (more content not included)... Normal [facility] - Hematology and Cell countson 09-05-2024 HbA1c (Bld) [Mass fraction] 7.8 % Abnormal 4.6 - 7.1 % [facility]. Diagnostic total prostate sp ecific antigen (PSA) measurementOrdered By: Radha Bob on 09-04-2024 Prostate Specific Antigen Total 1.16 ng/mL 0.00-4.00 [facility] Comment on above: This test was perfor med using the [employer] tPSA method. Measured values of a patient sample can vary depending on the testing procedure used. PSA values determined on patient samples by different testing procedures cannot be used interchangeably. If there is a change in PSA assays while monitoring therapy, sequential testing should be performed to confirm baseline values. PSA,Total- [employer] - PSA, DIAGNOSTIC 1.16 ng/mL Normal 0.00-4.00 [facility] Comment on above: Result Comment: This test was performed using the [employer] tPSA method. Measured values of a patient??sample can vary depending on the testing procedure used. PSA values determined on patient samples by different testing procedures cannot be used interchangeably. If there is a change in PSA assays while monitoring therapy, sequential testing should be performed to confirm baseline values. Performed By: #### L [id number] #### [facility] [address] [place], [place], [address] PSA,Total- [employer] -2 PSA, DIAGNOSTIC 0.25 ng/mL Normal 0.0-4.0 [facility] Comment on above: Result Comment: This test was performed using the TPSA assay method for the [employer] system. Values obtained with different assay methods cannot be used interchangably. When changing PSA assays in the course of monitoring a patient, additional sequential testing should be carried out to confirm baseline values. Performed By: #### L [id number] #### [facility] [address] [place], [place], [address] Basophil percentageOrdered B y: Radha Bob on 08-18-2023 Basophil percentage 0.02 ng/mL 0.0-4.0 [facility] Comment on above: This test was perfor med using the TPSA assay method for the[employer] chemistry system. Values obtained with differentassay methods cannot be used interchangably.When changing PSA assays in the course of monitoring apatient, additional sequential testing should be carriedout to confirm baseline values. Laboratory - Hematology and Cell countson 04-20-2023 HbA1c (Bld) [Mass fraction] 6.4 % Normal 4.6 - 7.1 % [facility].; [facility] No Panel InformationOrdered By: Curtis Collins on 02-15-2023 Prostate Specific Antigen Screen < 0.01 ng/mL 0.00-4.00 [facility] Comment on above: This test was perfor med using the TPSA assay method for the[employer] chemistry system. Values obtained with differentassay methods cannot be used interchangably.When changing PSA assays in the course of monitoring apatient, additional sequential testing should be carriedout to confirm baseline values. Prostate Specific Antigen Total < 0.01 ng/mL 0.0-4.0 [facility] Comment on above: This test was perfor med using the TPSA assay method for the[employer] chemistry system. Values obtained with differentassay methods cannot be used interchangably.When changing PSA assays in the course of monitoring apatient, additional sequential testing should be carriedout to confirm baseline values. Laboratory - Hematology and Cell countson 10-18-2022 HbA1c (Bld) [Mass fraction] 8.0 % Abnormal 4.6 - 7.1 % [facility].; [facility] No Panel InformationOrdered By: WALKER Florez on 10-14-2022 Prostate Specific Antigen Total < 0.01 ng/mL 0.0-4.0 [facility] Comment on above: This test was perfor med using the TPSA assay method for the[employer] chemistry system. Values obtained with differentassay methods cannot be used interchangably.When changing PSA assays in the course of monitoring apatient, additional sequential testing should be carriedout to confirm baseline values. No Panel InformationOrdered By: WALKER Florez on 07-19-2022 Prostate Specific Antigen Total < 0.01 ng/mL 0.0-4.0 [facility] Comment on above: This test was perfor med using the TPSA assay method for the[employer] chemistry system. Values obtained with differentassay methods cannot be used interchangably.When changing PSA assays in the course of monitoring apatient, additional sequential testing should be carriedout to confirm baseline values. No Panel InformationOrdered By: Dr. Collins on 04-15-2022 Prostate Specific Antigen Total < 0.01 ng/mL 0.0-4.0 [facility] Comment on above: This test was perfor med using the TPSA assay method for the[employer] chemistry system. Values obtained with differentassay methods cannot be used interchangably.When changing PSA assays in the course of monitoring apatient, additional sequential testing should be carriedout to confirm baseline values. CBC (INCLUDES DIFF/PLT)on Basophils (Bld) [#/Vol] 0.102 10*3/uL Normal 0-200 [facility] Comment on above: Performed By: #### 6 399, 82638, 7600 #### [facility] [place] [address] Healthcare Project Manager: Rajesh Liriano MD Basophils/100 WBC (Bld) 2.0 % Normal [facility] Comment on above: Performed By: #### 6 399, 05429, 7600 #### [facility] [place] [address] Healthcare Project Manager: Rajesh Liriano MD Eosinophils (Bld) [#/Vol] 0.408 10*3/uL Normal 15-500 [facility] Comment on above: Performed By: #### 6 399, 12853, 7600 #### [facility] [place] [address] Healthcare Project Manager: Rajesh Liriano MD Eosinophils/100 WBC (Bld) 8.0 % Normal [facility] Comment on above: Performed By: #### 6 399, 94086, 7600 #### [facility] [place] [address] Healthcare Project Manager: Rajesh Liriano MD Erythrocyte distribution width (RBC) [Ratio] 16.0 % High 11.0-15.0 [facility] Comment on above: Performed By: #### 6 399, 22720, 0 #### [facility] [place] [address] Healthcare Project Manager: Rajesh Liriano MD Hematocrit (Bld) [Volume fraction] 43.0 % Normal 38.5-50.0 [facility] Comment on above: Performed By: #### 6 399, 37933, 7600 #### [facility] [place] [address] Healthcare Project Manager: Rajesh Liriano MD Hemoglobin (Bld) [Mass/Vol] 13.0 g/dL Low 13.2-17.1 [facility] Comment on above: Performed By: #### 6 399, 00610, 0 #### [facility] [place] [address] Healthcare Project Manager: Rajesh Liriano MD Lymphocytes (Bld) [#/Vol] 1.01 10*3/uL Normal 850-3900 [facility] Comment on above: Performed By: #### 6 399, 68813, 0 #### [facility] [place] [address] Healthcare Project Manager: Rajesh Liriano MD Lymphocytes/100 WBC (Bld) 19.8 % Normal [facility] Comment on above: Performed By: #### 6 399, 20465, 7600 #### [facility] [place] [address] Healthcare Project Manager: Rajesh Liriano MD MCH (RBC) [Entitic mass] 23.2 pg Low 27.0-33.0 [facility] Comment on above: Performed By: #### 6 399, 18407, 7600 #### [facility] [place] [address] Healthcare Project Manager: Rajesh Liriano MD MCHC (RBC) [Mass/Vol] 30.2 g/dL Low 32.0-36.[address] [facility] Comment on above: Performed By: #### 6 399, 38213, 7600 #### [facility] of [address], [address] [place] [address] Healthcare Project Manager: Rajesh Liriano MD MCV (RBC) [Entitic vol] 76.8 fL Low 80.0-100.0 [facility] Comment on above: Performed By: #### 6 399, 27155, 7600 #### [facility] [place] [address] Healthcare Project Manager: Rajesh Liriano MD Monocytes (Bld) [#/Vol] 0.689 10*3/uL Normal 200-950 [facility] Comment on above: Performed By: #### 6 399, 59652, 7600 #### [facility] [place] [address] Healthcare Project Manager: Rajesh Liriano MD Monocytes/100 WBC (Bld) 13.5 % Normal [facility] Comment on above: Performed By: #### 6 399, 30637, 0 #### [facility] [place] [address] Healthcare Project Manager: Rajesh Liriano MD Neutrophils (Bld) [#/Vol] 2.892 10*3/uL Normal 7014-9242 [facility] Comment on above: Performed By: #### 6 399, 78370, 7600 #### [facility] [place] [address] Healthcare Project Manager: Rajesh Liriano MD Neutrophils/100 WBC (Bld) 56.7 % Normal [facility] Comment on above: Performed By: #### 6 399, 98970, 7600 #### [facility] [place] [address] Healthcare Project Manager: Rajesh Liriano MD Platelet mean volume (Bld) [Entitic vol] 11.4 fL Normal 7.5-12.5 [facility] Comment on above: Performed By: #### 6 399, 69121, 7600 #### [facility] [place] [address] Healthcare Project Manager: Rajesh Liriano MD Platelets (Bld) [#/Vol] 157 10*3/uL Normal 140-400 [facility] Comment on above: Performed By: #### 6 399, 85244, 7600 #### [facility] of [address], [address] [place] [address] Healthcare Project Manager: Rajesh Liriano MD RBC (Bld) [#/Vol] 5.60 10*6/uL Normal 4.20-5.80 [facility] Comment on above: Performed By: #### 6 399, 23346, 7600 #### [facility] [place] [address] Healthcare Project Manager: Rajesh Liriano MD WBC (Bld) [#/Vol] 5.1 10*3/uL Normal 3.8-10.8 [facility] Comment on above: Performed By: #### 6 399, 17180, 0 #### [facility] of [address], [address] [place] [address] Healthcare Project Manager: Rajesh Liriano MD [facility] 01-27-2022 Albumin [Mass/Vol] 4.2 g/dL Normal 3.6-5.1 [facility] Comment on above: Performed By: #### 6 399, 56593, 7600 #### [facility] [place] [address] Healthcare Project Manager: Rajesh Liriano MD Albumin/Globulin [Mass ratio] 1.8 {ratio} Normal 1.0-2.5 [facility] Comment on above: Performed By: #### 6 399, 41791, 7600 #### [facility] [place] [address] Healthcare Project Manager: Rajesh Liriano MD ALP [Catalytic activity/Vol] 65 U/L Normal 35-144 [facility] Comment on above: Performed By: #### 6 399, 19420, 7600 #### [facility] [place] [address] Healthcare Project Manager: Rajesh Liriano MD ALT [Catalytic activity/Vol] 17 U/L Normal 9-46 [facility] Comment on above: Performed By: #### 6 399, 52482, 7600 #### [facility] [place] [address] Healthcare Project Manager: Rajesh Liriano MD AST [Catalytic activity/Vol] 13 U/L Normal 10-35 [facility] Comment on above: Performed By: #### 6 399, 75102, 0 #### [facility] of [address], [address] [place] [address] Healthcare Project Manager: Rajesh Liriano MD Bilirubin [Mass/Vol] 0.8 mg/dL Normal 0.2-1.2 [facility] Comment on above: Performed By: #### 6 399, 65046, 0 #### [facility] [place] [address] Healthcare Project Manager: Rajesh Liriano MD BUN/CREATININE RATIO NOT APPLICABLE Normal 6-22 [facility] Comment on above: Performed By: #### 6 399, 61841, 0 #### [facility] [place] [address] Healthcare Project Manager: Rajesh Liriano MD Calcium [Mass/Vol] 9.2 mg/dL Normal 8.6-10.3 [facility] Comment on above: Performed By: #### 6 399, 13258, 0 #### [facility] [place] [address] Healthcare Project Manager: Rajesh Liriano MD Chloride [Moles/Vol] 104 mmol/L Normal 98-110 [facility] Comment on above: Performed By: #### 6 399, 39635, 7600 #### [facility] [place] [address] Healthcare Project Manager: Rajesh Liriano MD CO2 [Moles/Vol] 27 mmol/L Normal 20-32 [facility] Comment on above: Performed By: #### 6 399, 10728, 7600 #### [facility] of [address], [address] [place] [address] Healthcare Project Manager: Rajesh Liriano MD Creatinine [Mass/Vol] 0.87 mg/dL Normal 0.70-1.[address] [facility] Comment on above: Performed By: #### 6 399, 69393, 7600 #### [facility] [place] [address] Healthcare Project Manager: Rajesh Liriano MD GFR/1.73 sq M.predicted among non-blacks MDRD (S/P/Bld) [Vol rate/Area] 91 mL/min/{1.73_m2} Normal > OR = 60 [facility] Comment on above: Result Comment: The eGFR is based on the CKD-EPI 2020 equation. To calculate the new eGFR from a previous Creatinine or Cystatin C result, go to https://www.kidney.org/professionals/ kdoqi/gfr%5Fcalculator Performed By: #### 6 399, 59551, 0 #### [facility] [place] [address] Healthcare Project Manager: Rajesh Liriano MD Globulin (S) [Mass/Vol] 2.3 g/dL Normal 1.9-3.7 [facility] Comment on above: Performed By: #### 6 399, 66952, 7600 #### [facility] [place] [address] Healthcare Project Manager: Rajesh Liriano MD Glucose [Mass/Vol] 197 mg/dL High 65-99 [facility] Comment on above: Result Comment: Fasting reference interval For someone without known diabetes, a glucose value >125 mg/dL indicates that they may have diabetes and this should be confirmed with a follow-up test. Performed By: #### 6 399, 80430, 7600 #### [facility] [place] [address] Healthcare Project Manager: Rajesh Liriano MD Potassium [Moles/Vol] 4.2 mmol/L Normal 3.5-5.[address] [facility] Comment on above: Performed By: #### 6 399, 03297, 7600 #### [facility] [address], [address] [place] [address] Healthcare Project Manager: Rajesh Liriano MD Protein [Mass/Vol] 6.5 g/dL Normal 6.1-8.1 [facility] Comment on above: Performed By: #### 6 399, 28506, 7600 #### [facility] [address], [address] [place] [address] Healthcare Project Manager: Rajesh Liriano MD Sodium [Moles/Vol] 140 mmol/L Normal 135-146 [facility] Comment on above: Performed By: #### 6 399, 72949, 7600 #### [facility] [place] [address] Healthcare Project Manager: Rajesh Liriano MD Urea nitrogen [Mass/Vol] 19 mg/dL Normal 7-25 [facility] Comment on above: Performed By: #### 6 399, 85581, 7600 #### [facility] [address], [address] [place] [address] Healthcare Project Manager: Rajesh Liriano MD HEMOGLOBIN A1con 01-27-2022 HEMOGLOBIN A1c 10.8 % of total Hgb High <5.7 [facility] Comment on above: Result Comment: For someone without known diabetes, a hemoglobin A1c value of 6.5% or greater indicates that they may have diabetes and this should be confirmed with a follow-up test. For someone with known diabetes, a value <7% indicates that their diabetes is well controlled and a value greater than or equal to 7% indicates suboptimal control. A1c targets should be individualized based on duration of diabetes, age, comorbid conditions, and other considerations. Currently, no consensus exists regarding use of hemoglobin A1c for diagnosis of diabetes for children. Performed By: #### 6 399, 40253, 7600 #### [facility] [address], [address] [place] [address] Healthcare Project Manager: Rajesh Liriano MD LIPID PANEL, STANDARDon - Cholesterol [Mass/Vol] 149 mg/dL Normal <200 [facility] Comment on above: Performed By: #### 6 399, 38360, 7600 #### [facility] [address], [address] [place] [address] Healthcare Project Manager: Rajesh Liriano MD Cholesterol in HDL [Mass/Vol] 46 mg/dL Normal > OR = 40 [facility] Comment on above: Performed By: #### 6 399, 93614, 7600 #### [facility] [address], [address] [place] [address] Healthcare Project Manager: Rajesh Liriano MD Cholesterol in LDL [Mass/Vol] 78 mg/dL Normal [facility] Comment on above: Result Comment: Refe rence range: <100 Desirable range <100 mg/dL for primary prevention; <70 mg/dL for patients with CHD or diabetic patients with > or = 2 CHD risk factors. LDL-C is now calculated using the Darryn calculation, which is a validated novel method providing better accuracy than the Friedewald equation in the estimation of LDL-C. Uriel MUELLER et al. GHASSAN. 2013;310(19): 9137-4955 (http://education.Canara.Libboo/faq/JGB159) Performed By: #### 6 399, 40766, 0 #### [facility] [place] [address] Healthcare Project Manager: Rajesh Liriano MD Cholesterol.total/Alannah sterol in HDL [Mass ratio] 3.2 {ratio} Normal <5.0 [facility] Comment on above: Performed By: #### 6 399, 53804, 0 #### [facility] [address], [address] [place] [address] Healthcare Project Manager: Rajesh Liriano MD NON HDL CHOLESTEROL 103 mg/dL (calc) Normal <130 [facility] Comment on above: Result Comment: For patients with diabetes plus 1 major ASCVD risk factor, treating to a non-HDL-C goal of <100 mg/dL (LDL-C of <70 mg/dL) is considered a therapeutic option. Performed By: #### 6 399, 81231, 7600 #### [facility] [address], [address] [place], [place] [id number] Healthcare Project Manager: Rajesh Liriano MD Triglyceride [Mass/Vol] 148 mg/dL Normal <150 [facility] Comment on above: Performed By: #### 6 399, 26801, 9064 #### [facility] [address], [address] [place] [address] Healthcare Project Manager: Rajesh Liriano MD Laboratory - Chemistry and C hemistry - challengeon 01-26-2022 Albumin [Mass/Vol] 4.2 g/dL Normal 3.6 - 5.1 g/dL [facility], [facility].; [employer] [facility] Albumin/Globulin [Mass ratio] 1.8 {ratio} Normal 1.0 - 2.5 [facility] [employer] [facility] ALP [Catalytic activity/Vol] 65 U/L Normal 35 - 144 U/L [facility] [employer] ALT [Catalytic activity/Vol] 17 U/L Normal 9 - 46 U/L [facility] [employer] AST [Catalytic activity/Vol] 13 U/L Normal 10 - 35 U/L [employer] [facility] [employer] Bilirubin [Mass/Vol] 0.8 mg/dL Normal 0.2 - 1 .2 mg/dL [employer] [facility] [employer] Calcium [Mass/Vol] 9.2 mg/dL Normal 8.6 - 10. 3 mg/dL [facility] [employer] Chloride [Moles/Vol] 104 mmol/L Normal 98 - 11 0 mmol/L [employer] [facility] [employer] Cholesterol [Mass/Vol] 149 mg/dL Normal [facility], [facility].; [employer] Cholesterol in HDL [Mass/Vol] 46 mg/dL Normal [employer] Cholesterol in LDL [Mass/Vol] 78 mg/dL Normal [employer] [facility] [employer] CO2 [Moles/Vol] 27 mmol/L Normal 20 - 32 mmol/L [facility] [employer] [employer] Creatinine [Mass/Vol] 0.87 mg/dL Normal 0.70 - 1.28 mg/dL [facility].; [facility]. GFR/1.73 sq M.predicted among non-blacks MDRD (S/P/Bld) [Vol rate/Area] 91 mL/min/{1.73_m2} Normal [facility].; [facility], [facility] Glucose [Mass/Vol] 197 mg/dL Abnormal 65 - 99 mg/dL [facility].; [facility], [facility]. Potassium [Moles/Vol] 4.2 mmol/L Normal 3.5 - 5.3 mmol/L [facility].; [facility]. Protein [Mass/Vol] 6.5 g/dL Normal 6.1 - 8.1 g/dL [facility], [facility].; [facility], [facility] Sodium [Moles/Vol] 140 mmol/L Normal 135 - 146 mmol/L [facility].; [facility]. Triglyceride [Mass/Vol] 148 mg/dL Normal [facility]; [facility] Urea nitrogen [Mass/Vol] 19 mg/dL Normal 7 - 25 mg/dL [facility].; [facility] Laboratory - Hematology and Cell countson 01-26-2022 Basophils (Bld) [#/Vol] 0.102 10*3/uL Normal 0 - 200 {cells/uL} [facility].; [employer] [facility]. Basophils/100 WBC (Bld) 2.0 % Normal [facility].; [facility] Eosinophils (Bld) [#/Vol] 0.408 10*3/uL Normal 15 - 500 {cells/uL} [facility].; [employer], [facility]. Eosinophils/100 WBC (Bld) 8.0 % Normal [facility].; [employer], [facility] Erythrocyte distribution width (RBC) [Ratio] 16.0 % Abnormal 11.0 - 15.0 % [facility].; [employer], [employer]. HbA1c (Bld) [Mass fraction] 10.8 % Abnormal [facility], [facility].; [facility]. Hematocrit (Bld) [Volume fraction] 43.0 % Normal 38.5 - 50.0 % [facility].; [facility]. Hemoglobin (Bld) [Mass/Vol] 13.0 g/dL Abnormal 13.2 - 17.1 g/dL [facility], [facility].; [facility]. Lymphocytes (Bld) [#/Vol] 1.01 10*3/uL Normal 850 - 3900 {cells/uL} [facility].; [facility]. Lymphocytes/100 WBC (Bld) 19.8 % Normal [facility].; [employer] [facility], [facility]. MCH (RBC) [Entitic mass] 23.2 pg Abnormal 27.0 - 33.0 pg [facility].; [employer], [facility]. MCHC (RBC) [Mass/Vol] 30.2 g/dL Abnormal 32.0 - 36.0 g/dL [facility], [facility].; [employer], [facility]. MCV (RBC) [Entitic vol] 76.8 fL Abnormal 80.0 - 100.0 fL [facility], [facility].; [employer] [facility], [facility]. Monocytes (Bld) [#/Vol] 0.689 10*3/uL Normal 200 - 950 {cells/uL} [facility].; [employer] Monocytes/100 WBC (Bld) 13.5 % Normal [facility].; [facility], [facility]. Neutrophils (Bld) [#/Vol] 2.892 10*3/uL Normal 1500 - 7800 {cells/uL} [facility].; [employer], [facility]. Neutrophils/100 WBC (Bld) 56.7 % Normal [facility].; [employer] [facility], [facility]. Platelet mean volume (Bld) [Entitic vol] 11.4 fL Normal 7.5 - 12.5 fL [facility], [facility].; [employer] Platelets (Bld) [#/Vol] 157 10*3/uL Normal 140 - 400 [facility].; [employer] [facility]. RBC (Bld) [#/Vol] 5.60 10*6/uL Normal 4.20 - 5.8 0 {Million/uL} [facility].; [facility]. WBC (Bld) [#/Vol] 5.1 10*3/uL Normal 3.8 - 10.8 [facility].; [employer] [facility]. No Panel Informationon 01-26 BUN/CREATININE RATIO NOT APPLICABLE Normal 6 - 22 [facility]; [place] [employer]. CHOL/HDLC RATIO 3.2 Normal [facility].; [facility]. GLOBULIN 2.3 Normal 1.9 - 3.7 [facility]; [facility]. NON HDL CHOLESTEROL 103 Normal [facility]; [employer] [facility]. No Panel Informationon 01-05 Prostate Specific Antigen Total < 0.01 ng/mL 0.0-4.0 [facility] Work Phone: Comment on above: This test was perfor med using the TPSA assay method for the[employer] chemistry system. Values obtained with differentassay methods cannot be used interchangably.When changing PSA assays in the course of monitoring apatient, additional sequential testing should be carriedout to confirm baseline values. No Panel Informationon 10-01 Prostate Specific Antigen Total < 0.01 ng/mL 0.0-4.0 [facility] Work Phone: Comment on above: This test was perfor med using the TPSA assay method for the[employer]ensi[employer]dot[employer] chemistry system. Values obtained with differentassay methods cannot be used interchangably.When changing PSA assays in the course of monitoring apatient, additional sequential testing should be carriedout to confirm baseline values. Laboratory - Hematology and Cell countson 12-26-2020 HbA1c (Bld) [Mass fraction] 8.9 % Abnormal 4.6 - 7.1 % [facility].; [place] [employer]. Laboratory - Chemistry and C hemistry - challengeon 08-29-2020 Albumin [Mass/Vol] 4.2 g/dL Normal 3.6 - 5.1 g/dL [facility], [facility].; [facility], [facility] Albumin/Globulin [Mass ratio] 1.6 {ratio} Normal 1.0 - 2.5 [facility].; [facility], [facility]. ALP [Catalytic activity/Vol] 70 U/L Normal 35 - 144 U/L [facility].; [facility], [facility]. ALT [Catalytic activity/Vol] 13 U/L Normal 9 - 46 U/L [facility].; [facility], [facility]. AST [Catalytic activity/Vol] 12 U/L Normal 10 - 35 U/L [facility].; [facility], [facility] Bilirubin [Mass/Vol] 0.4 mg/dL Normal 0.2 - 1 .2 mg/dL [facility].; [facility], [facility] Calcium [Mass/Vol] 9.3 mg/dL Normal 8.6 - 10. 3 mg/dL [facility].; [facility], [facility]. Chloride [Moles/Vol] 104 mmol/L Normal 98 - 11 0 mmol/L [facility].; [facility], [facility] Cholesterol [Mass/Vol] 150 mg/dL Normal [facility]; [facility], [facility] Cholesterol in HDL [Mass/Vol] 37 mg/dL Abnormal [facility].; [facility], [facility] Cholesterol in LDL [Mass/Vol] 88 mg/dL Normal [facility].; [facility], [facility] CO2 [Moles/Vol] 24 mmol/L Normal 20 - 32 mmol/L [facility].; [facility], [facility]. Creatinine [Mass/Vol] 0.77 mg/dL Normal 0.70 - 1.18 mg/dL [facility].; [facility], [facility]. GFR/1.73 sq M.predicted among blacks MDRD (S/P/Bld) [Vol rate/Area] 105 mL/min/{1.73_m2} Normal [facility], [facility].; [facility], [facility] Glucose [Mass/Vol] 122 mg/dL Abnormal 65 - 99 mg/dL [facility].; [facility], [facility]. Potassium [Moles/Vol] 4.1 mmol/L Normal 3.5 - 5.3 mmol/L [facility].; [facility], [facility]. Protein [Mass/Vol] 6.8 g/dL Normal 6.1 - 8.1 g/dL [facility].; [facility], [facility] Sodium [Moles/Vol] 138 mmol/L Normal 135 - 146 mmol/L [facility].; [facility], [facility]. Triglyceride [Mass/Vol] 148 mg/dL Normal [facility].; [facility], [facility]. Urea nitrogen [Mass/Vol] 19 mg/dL Normal 7 - 25 mg/dL [facility].; [facility], [facility] Laboratory - Hematology and Cell countson 08-29-2020 Basophils (Bld) [#/Vol] 0.09 10*3/uL Normal 0 - 200 {cells/uL} [facility].; [facility], [facility]. Basophils/100 WBC (Bld) 1.6 % Normal [facility].; [facility], [facility] Eosinophils (Bld) [#/Vol] 0.442 10*3/uL Normal 15 - 500 {cells/uL} [facility].; [facility], [facility]. Eosinophils/100 WBC (Bld) 7.9 % Normal [facility]; [facility], [facility] Erythrocyte distribution width (RBC) [Ratio] 16.2 % Abnormal 11.0 - 15.0 % [facility], [facility].; [facility], [facility]. HbA1c (Bld) [Mass fraction] 8.7 % Abnormal 4.6 - 7.1 % [facility].; [facility]. Hematocrit (Bld) [Volume fraction] 40.0 % Normal 38.5 - 50.0 % [facility].; [facility]. Hemoglobin (Bld) [Mass/Vol] 12.2 g/dL Abnormal 13.2 - 17.1 g/dL [facility].; [facility], [facility] Lymphocytes (Bld) [#/Vol] 0.89 10*3/uL Normal 850 - 3900 {cells/uL} [facility].; [employer], [facility]. Lymphocytes/100 WBC (Bld) 15.9 % Normal [facility].; [facility]. MCH (RBC) [Entitic mass] 22.6 pg Abnormal 27.0 - 33.0 pg [facility].; [facility]. MCHC (RBC) [Mass/Vol] 30.5 g/dL Abnormal 32.0 - 36.0 g/dL [facility].; [employer] MCV (RBC) [Entitic vol] 73.9 fL Abnormal 80.0 - 100.0 fL [facility], [facility].; [facility]. Monocytes (Bld) [#/Vol] 0.661 10*3/uL Normal 200 - 950 {cells/uL} [facility].; [employer], [facility]. Monocytes/100 WBC (Bld) 11.8 % Normal [facility].; [employer], [facility]. Neutrophils (Bld) [#/Vol] 3.517 10*3/uL Normal 1500 - 7800 {cells/uL} [facility].; [employer], [facility]. Neutrophils/100 WBC (Bld) 62.8 % Normal [facility], [facility].; [employer], [facility]. Platelet mean volume (Bld) [Entitic vol] 11.5 fL Normal 7.5 - 12.5 fL [facility], [facility].; [employer] Platelets (Bld) [#/Vol] 201 10*3/uL Normal 140 - 400 [facility] [employer] [facility].; [employer] RBC (Bld) [#/Vol] 5.41 10*6/uL Normal 4.20 - 5.8 0 {Million/uL} [employer], [facility].; [employer] WBC (Bld) [#/Vol] 5.6 10*3/uL Normal 3.8 - 10.8 [facility] [employer], [facility].; [employer], [employer] No Panel Informationon 08-29 BUN/CREATININE RATIO NOT APPLICABLE Normal 6 - [facility]; [facility] CHOL/HDLC RATIO 4.1 Normal [facility]; [facility] eGFR NON-AFR. EGYPTIAN 91 Normal [facility]; [facility] GLOBULIN 2.6 Normal 1.9 - 3.7 [facility]; [facility] NON HDL CHOLESTEROL 113 Normal [facility]; [facility] Laboratory - Hematology and Cell countson 03-21-2020 HbA1c (Bld) [Mass fraction] 12.1 % Abnormal 4.6 - 7.1 % [facility]; [place] [employer] [facility] Laboratory - Hematology and Cell countson 08-24-2019 HbA1c (Bld) [Mass fraction] 6.9 % Normal 4.6 - 7.1 % [facility]; [place] [employer] [facility] Laboratory - Chemistry and C hemistry - challengeon 05-16-2019 Prostate specific Ag [Mass/Vol] 5.7 ng/mL Abnormal [facility]; [place] [employer] [facility] Prostate specific Ag [Mass/Vol] - Normal 0 - 4.0 ng/dL [facility]; [place] [employer] [facility]. Laboratory - Hematology and Cell countson 05-16-2019 HbA1c (Bld) [Mass fraction] 9.6 % Abnormal 4.6 - 7.1 % [facility]; [place] [employer] [facility] Laboratory - Hematology and Cell countson 02-08-2019 HbA1c (Bld) [Mass fraction] 8.8 % Abnormal 4.6 - 7.1 % [facility]; [place] [employer]. Laboratoryon 10-05-2018 Lower GI hemoglobin IA Ql (Stl) Not detected Normal [facility]; [place] [employer] Laboratory - Chemistry and C hemistry - challengeon 10-03-2018 Free PSA [Mass/Vol] 1.8 ng/mL Normal [facility]; [place] [employer] Prostate specific Ag [Mass/Vol] 13.8 ng/mL Abnormal [facility]; [employer]. No Panel Informationon 10-03 MESSAGE See Table Normal [place] [employer], [employer]. Laboratory - Chemistry and C hemistry - challengeon 08-28-2018 Albumin/Creatinine DL <= 20 mg/L (U) [Mass ratio] mg/g Normal [employer] [address], [employer]. Calcium [Mass/Vol] 9.1 mg/dL Normal 8.6 - 10. 3 mg/dL [place] [employer] [facility].; [address], [employer]. Chloride [Moles/Vol] 103 mmol/L Normal 98 - 11 0 mmol/L [place] [employer].; [address], [employer]. Cholesterol [Mass/Vol] 154 mg/dL Normal [facility] [employer] [facility].; [address] Cholesterol in HDL [Mass/Vol] 34 mg/dL Abnormal [employer], [employer] [address], [employer]. Cholesterol in LDL [Mass/Vol] 94 mg/dL Normal 0 - 100 mg/dL [place] [employer] [address], [employer]. Cholesterol non HDL [Mass/Vol] 120 mg/dL Normal [place] [employer].; [address], [employer]. Cholesterol.total/Alannah sterol in HDL [Mass ratio] 4.5 {ratio} Normal [place] [employer].; [address] CO2 [Moles/Vol] 28 mmol/L Normal 20 - 32 mmol/L [employer], [employer].; [address], [employer]. Creatinine (U) [Mass/Vol] 200 mg/dL Normal [employer], [facility].; [address], [employer]. Creatinine [Mass/Vol] 0.96 mg/dL Normal 0.70 - 1.18 mg/dL [employer], [employer].; [address] GFR/1.73 sq M.predicted among blacks MDRD (S/P/Bld) [Vol rate/Area] 92 {ML/MIN/1.73M2} Normal [employer] [address] GFR/1.73 sq M.predicted MDRD (S/P/Bld) [Vol rate/Area] 80 {ML/MIN/1.73M2} Normal [facility].; [facility] Glucose [Mass/Vol] 215 mg/dL Abnormal 65 - 99 mg/dL [facility], [facility] Potassium [Moles/Vol] 3.7 mmol/L Normal 3.5 - 5.3 mmol/L [facility]; [facility], [facility] Sodium [Moles/Vol] 140 mmol/L Normal 135 - 146 mmol/L [facility]; [facility], [facility] Triglyceride [Mass/Vol] 164 mg/dL Abnormal [facility]; [facility], [facility] Urea nitrogen [Mass/Vol] 14 mg/dL Normal 7 - 25 mg/dL [facility]; [facility], [facility] Urea nitrogen/Creatinine [Mass ratio] 14.7 mg/mg Normal 6 - 22 [facility]; [facility] Laboratory - Hematology and Cell countson 08-28-2018 HbA1c (Bld) [Mass fraction] 9 % Abnormal 4.6 - 7.1 % [facility]; [facility] Laboratory - Urinalysison Protein Ql (U) 30 mg/dL Abnormal [facility]; [facility], [facility] Laboratory - Chemistry and C hemistry - challengeon 01-07-2016 Albumin [Mass/Vol] 4.8 g/dL Normal 3.6 - 5.1 g/dL [facility]; [facility], [facility] Albumin/Globulin [Mass ratio] 2.2 {ratio} Normal 1.0 - 2.5 [facility]; [facility] ALP [Catalytic activity/Vol] 61 U/L Normal 40 - 115 U/L [facility].; [facility]. ALT [Catalytic activity/Vol] 21 U/L Normal 9 - 46 U/L [facility].; [facility]. AST [Catalytic activity/Vol] 14 U/L Normal 10 - 35 U/L [facility].; [facility] Bilirubin [Mass/Vol] 1.2 mg/dL Normal 0.2 - 1 .2 mg/dL [facility].; [facility]. Calcium [Mass/Vol] 9.6 mg/dL Normal 8.6 - 10. 3 mg/dL [facility].; [facility]. Chloride [Moles/Vol] 103 mmol/L Normal 98 - 11 0 mmol/L [facility], [facility].; [facility]. Cholesterol [Mass/Vol] 145 mg/dL Normal 125 - 200 mg/dL [facility].; [facility]. Cholesterol in HDL [Mass/Vol] 32 mg/dL Abnormal [facility].; [facility], [facility]. Cholesterol in LDL [Mass/Vol] 88 mg/dL Normal [facility].; [facility]. Cholesterol non HDL [Mass/Vol] 113 mg/dL Normal [facility].; [place] [employer] [facility], [facility]. Cholesterol.total/Alannah sterol in HDL [Mass ratio] 4.5 {ratio} Normal [facility].; [facility], [facility]. CO2 [Moles/Vol] 23 mmol/L Normal 19 - 30 mmol/L [facility].; [place] [employer] [facility], [facility]. Creatinine [Mass/Vol] 1.06 mg/dL Normal 0.70 - 1.25 mg/dL [facility].; [place] [employer] [facility], [facility]. GFR/1.73 sq M.predicted among blacks MDRD (S/P/Bld) [Vol rate/Area] 84 {ML/MIN/1.73M2} Normal [facility], [facility].; [facility]. GFR/1.73 sq M.predicted MDRD (S/P/Bld) [Vol rate/Area] 72 {ML/MIN/1.73M2} Normal [facility].; [place] [employer] [facility], [employer] Globulin (S) [Mass/Vol] 2.2 g/dL Normal 1.9 - 3.7 g/dL [facility].; [place] [employer] [facility], [employer] Glucose [Mass/Vol] 113 mg/dL Abnormal 65 - 99 mg/dL [facility].; [facility], [employer] Potassium [Moles/Vol] 3.8 mmol/L Normal 3.5 - 5.3 mmol/L [facility].; [facility]. Prostate specific Ag [Mass/Vol] 6.2 ng/mL Abnormal [facility].; [facility], [facility]. Protein [Mass/Vol] 7.0 g/dL Normal 6.1 - 8.1 g/dL [facility], [facility].; [facility], [facility]. Sodium [Moles/Vol] 141 mmol/L Normal 135 - 146 mmol/L [facility].; [facility], [facility]. Triglyceride [Mass/Vol] 124 mg/dL Normal [facility].; [facility]. Urea nitrogen [Mass/Vol] 18 mg/dL Normal 7 - 25 mg/dL [facility].; [facility], [facility]. Urea nitrogen/Creatinine [Mass ratio] 16.8 mg/mg Normal 6 - 22 [facility].; [place] [employer] [facility], [facility]. Laboratory - Hematology and Cell countson 01-07-2016 HbA1c (Bld) [Mass fraction] 6.7 % Abnormal 0.0 - 5.6 % [facility].; [place] [employer], [facility]. Laboratory - Hematology and Cell countson 05-15-2014 HbA1c (Bld) [Mass fraction] 7.4 % Abnormal 4.6 - 7.1 % [facility], [facility].; [employer], [facility]. Laboratory - Chemistry and C hemistry - challengeon 09-21-2013 Glucose Glucometer (BldC) [Moles/Vol] 180 Abnormal 60 - 120 [facility].; [place] [employer] [facility]. Laboratory - Hematology and Cell countson 09-21-2013 HbA1c (Bld) [Mass fraction] 8.8 % Abnormal 4.6 - 7.1 % [facility].; [employer], [facility]. Laboratory - Chemistry and C hemistry - challengeon 07-09-2013 Calcium [Mass/Vol] 9.0 mg/dL Normal 8.6 - 10. 3 mg/dL [facility].; [employer], [facility]. Chloride [Moles/Vol] 100 mmol/L Normal 98 - 11 0 mmol/L [facility].; [facility]. Cholesterol [Mass/Vol] 181 mg/dL Normal 125 - 200 mg/dL [facility], [facility].; [facility]. Cholesterol in HDL [Mass/Vol] 28 mg/dL Abnormal [facility].; [facility], [facility]. Cholesterol in LDL [Mass/Vol] 100 mg/dL Normal [facility], [facility].; [facility]. Cholesterol non HDL [Mass/Vol] 153 mg/dL Normal [facility], [facility].; [facility]. Cholesterol.total/Alannah sterol in HDL [Mass ratio] 6.5 {ratio} Abnormal [facility].; [facility], [facility] CO2 [Moles/Vol] 27 mmol/L Normal 19 - 30 mmol/L [facility].; [facility]. Creatinine [Mass/Vol] 1.12 mg/dL Normal 0.70 - 1.25 mg/dL [facility].; [facility]. GFR/1.73 sq M.predicted among blacks MDRD (S/P/Bld) [Vol rate/Area] 80 {ML/MIN/1.73M2} Normal [facility].; [facility]. GFR/1.73 sq M.predicted MDRD (S/P/Bld) [Vol rate/Area] 69 {ML/MIN/1.73M2} Normal [facility].; [facility]. Glucose [Mass/Vol] 277 mg/dL Abnormal 65 - 99 mg/dL [facility].; [facility], [facility]. Potassium [Moles/Vol] 3.9 mmol/L Normal 3.5 - 5.3 mmol/L [facility].; [facility]. Prostate specific Ag [Mass/Vol] 4.9 ng/mL Abnormal 0.0 - 4.0 ng/mL [facility].; [facility] Sodium [Moles/Vol] 138 mmol/L Normal 135 - 146 mmol/L [facility].; [facility] [employer] Triglyceride [Mass/Vol] 267 mg/dL Abnormal [facility].; [facility]. TSH Qn 4.17 m[IU]/L Normal 0.40 - 4.50 {mIU/L} [facility].; [facility], [facility] Urea nitrogen [Mass/Vol] 20 mg/dL Normal 7 - 25 mg/dL [facility].; [facility], [facility] Urea nitrogen/Creatinine [Mass ratio] 17.7 mg/mg Normal 6 - 22 [facility]; [facility], [facility] Laboratory - Chemistry and C hemistry - challengeon 04-27-2012 Calcium [Mass/Vol] 9.7 mg/dL Normal 8.6 - 10. 3 mg/dL [facility]; [facility], [facility] Chloride [Moles/Vol] 102 mmol/L Normal 98 - 11 0 mmol/L [facility]; [facility], [facility] CO2 [Moles/Vol] 26 mmol/L Normal 21 - 33 mmol/L [facility]; [facility], [facility]. Creatinine [Mass/Vol] 1.21 mg/dL Normal 0.70 - 1.25 mg/dL [facility].; [facility], [facility]. GFR/1.73 sq M.predicted among blacks MDRD (S/P/Bld) [Vol rate/Area] 73 {ML/MIN/1.73M2} Normal [facility].; [facility], [facility]. GFR/1.73 sq M.predicted MDRD (S/P/Bld) [Vol rate/Area] 63 {ML/MIN/1.73M2} Normal [facility].; [facility]. Glucose [Mass/Vol] 153 mg/dL Abnormal 65 - 99 mg/dL [facility].; [facility], [facility]. Potassium [Moles/Vol] 4.0 mmol/L Normal 3.5 - 5.3 mmol/L [facility].; [facility], [facility]. Prostate specific Ag [Mass/Vol] 5.9 ng/mL Abnormal 0.0 - 4.0 ng/mL [facility].; [facility], [facility]. Sodium [Moles/Vol] 139 mmol/L Normal 135 - 146 mmol/L [facility].; [facility] Urea nitrogen [Mass/Vol] 18 mg/dL Normal 7 - 25 mg/dL [facility].; [facility] Urea nitrogen/Creatinine [Mass ratio] 14.5 mg/mg Normal 6 - 22 [facility].; [place] [employer] [facility] Laboratory - Chemistry and C hemistry - challengeon 03-16-2010 Calcium [Mass/Vol] see note Normal 8.2 - 10. 2 mg/dL [facility]; [facility] Calcium [Mass/Vol] 9.3 mg/dL Normal 8.6 - 10. 2 mg/dL [facility].; [facility] Free T4 [Mass/Vol] see note Normal [facility]; [facility] Free T4 [Mass/Vol] 1.4 ng/dL Normal 0.8 - 1.8 ng/dL [facility].; [place] [employer] [facility] Parathyrin.intact [Mass/Vol] 101.0 pg/mL Abnormal 10.0 - 65.0 pg/mL [facility]; [place] [employer] [facility]. TSH Qn see note Normal 0.35 - 5.5 mU/mL [facility].; [facility]. TSH Qn 2.50 m[IU]/L Normal 0.40 - 4.50 {mIU/L} [facility].; [place] [employer] [facility] Vital Signs Date Time Vital Sign Value Performing Clinician Facility 11-21-2024 10: Body height 182.[address] Lorrie Downing MD Work Phone: [facility] 11-21-2024 10: Body mass index (BMI) [Ratio] 31 kg/m2 Dr. Lorrie Downing MD Work Phone: [facility] 11-21-2024 10: Body weight 103.[address] Lorrie Downing MD Work Phone: [facility] 11-21-2024 10:18-0400 Diastolic blood pressure 75 mm[Hg] Dr. Lorrie Downing MD Work Phone: [facility] 11-21-2024 10:18-0400 Heart rate 68 /min Dr. Lorrie Downing MD Work Phone: [facility] 11-21-2024 10:18-0400 Respiratory rate 16 /min Dr. Lorrie Downing MD Work Phone: [facility] 11-21-2024 10:18-0400 Systolic blood pressure 116 mm[Hg] Dr. Lorrie Downing MD Work Phone: [facility] 10-10-2024 13:53-0400 Body height 177.8 cm Kimberlyn Janet [employer] Work Phone: [employer] 10-10-2024 13:53-0400 Body mass index (BMI) [Ratio] 33.29 kg/m2 Kimberlyn Janet [employer] Work Phone: [employer]; [employer]. 10-10-2024 13:53-0400 Body surface area Derived from formula 2.22 m2 Kimberlyn Janet [employer] Work Phone: [employer]; [employer]. 10-10-2024 13:53-0400 Body weight 105.24 kg Kimberlyn Janet [employer] Work Phone: [employer]. 10-10-2024 13:53-0400 Diastolic blood pressure 72 mm[Hg] Kimberlyn Janet [employer] Work Phone: [employer] Comment on above: Patient Position: Sitting; Cuff Location : Left Arm; Cuff Size: Standard 10-10-2024 13:53-0400 Heart rate 106 /min Kimberlyn Janet [employer] Work Phone: [employer]; [employer]. Comment on above: Pattern: Regular 10-10-2024 13:53-0400 Systolic blood pressure 114 mm[Hg] Kimberlyn Janet [employer] Work Phone: [employer]; [employer]. Comment on above: Patient Position: Sitting; Cuff Location : Left Arm; Cuff Size: Standard 09-05-2024 14:10-0500 Body height 177.8 cm Kimberlyn Janet [employer] Work Phone: [employer]; [employer]. 09-05-2024 14:10-0500 Body mass index (BMI) [Ratio] 33.29 kg/m2 Kimberlyn Janet [employer] Work Phone: [employer]; [employer]. 09-05-2024 14:10-0500 Body surface area Derived from formula 2.22 m2 Kimberlyn Janet [employer] Work Phone: [employer]; [employer]. 09-05-2024 14:10-0500 Body weight 105.24 kg Kimberlyn Janet [employer] Work Phone: [employer]; [employer]. 09-05-2024 14:10-0500 Diastolic blood pressure 84 mm[Hg] Kimberlyn Janet [employer] Work Phone: [employer]; [employer]. Comment on above: Patient Position: Sitting; Cuff Location : Left Arm; Cuff Size: Large 09-05-2024 14:10-0500 Heart rate 96 /min Kimberlyn Janet [employer] Work Phone: [employer]; [employer]. Comment on above: Pattern: Regular 09-05-2024 14:10-0500 Systolic blood pressure 134 mm[Hg] Kimberlyn Janet [employer] Work Phone: [employer] Comment on above: Patient Position: Sitting; Cuff Location : Left Arm; Cuff Size: Large 08-25-2023 16:04-0500 Diastolic blood pressure 80 mm[Hg] Lorrie Downing MD Work Phone: [employer]. Comment on above: Patient Position: Sitting; Cuff Location : Left Arm; Cuff Size: Standard 08-25-2023 16:04-0500 Systolic blood pressure 130 mm[Hg] Lorrie Downing MD Work Phone: [employer]. Comment on above: Patient Position: Sitting; Cuff Location : Left Arm; Cuff Size: Standard 05-19-2023 11:33-0500 Body weight 89.36 kg Kimberlyn Gonzales [employer] Work Phone: [employer]. 05-19-2023 10:16-0500 Diastolic blood pressure 70 mm[Hg] Kimberlyn Janet [employer] Work Phone: [employer]. Comment on above: Patient Position: Sitting; Cuff Location : Left Arm; Cuff Size: Large 05-19-2023 10:16-0500 Heart rate 79 /min Kimberlyn Solisy [employer] Work Phone: [employer]; [employer]. Comment on above: Pattern: Regular 05-19-2023 10:16-0500 Systolic blood pressure 117 mm[Hg] Kimberlyn Janet [employer] Work Phone: [place] [employer]. Comment on above: Patient Position: Sitting; Cuff Location : Left Arm; Cuff Size: Large 04-20-2023 09:42-0400 Body height 177.8 cm Jessica Fernandez LPN [place] [employer] [employer] [facility].; [employer]. 04-20-2023 09:42-0400 Body mass index (BMI) [Ratio] 28.41 kg/m2 Jessica Fernandez LPN [place] [employer].; [employer]. 04-20-2023 09:42-0400 Body surface area Derived from formula 2.08 m2 Jessica Fernandez LPN [place] [employer] [facility] Center[facility].; [employer]. 04-20-2023 09:42-0400 Body weight 89.81 kg Jessica Fernandez PATRICIA [facility], [facility].; [facility] 04-20-2023 09:42-0400 Diastolic blood pressure 67 mm[Hg] Jessica Fernandez PATRICIA [facility].; [place] [employer] [facility]. Comment on above: Patient Position: Sitting; Cuff Location : Left Arm; Cuff Size: Standard 04-20-2023 09:42-0400 Heart rate 47 /min Jessica Jim GOMEZ [facility], [facility].; [place] [employer], [employer]. Comment on above: Pattern: Regular 04-20-2023 09:42-0400 Systolic blood pressure 102 mm[Hg] Jessica Fernandez PATRICIA [facility].; [place] [employer]. Comment on above: Patient Position: Sitting; Cuff Location : Left Arm; Cuff Size: Standard 04-13-2023 14:47-0400 Body height 177.8 cm Kimberlyn Solisy [employer] Work Phone: [facility].; [place] [employer]. 04-13-2023 14:47-0400 Body mass index (BMI) [Ratio] 30.71 kg/m2 Kimberlyn Janet [employer] Work Phone: [facility].; [place] [employer] [facility]. 04-13-2023 14:47-0400 Body surface area Derived from formula 2.15 m2 Kimberlyn Janet [employer] Work Phone: [facility].; [place] [employer] [facility]. 04-13-2023 14:47-0400 Body temperature 98.7 [degF] Kimberlyn Janet [employer] Work Phone: [place].; [employer]. Comment on above: Method: Tympanic 04-13-2023 14:47-0400 Body weight 97.07 kg Kimberlyn Janet [employer] Work Phone: [employer].; [place]. 04-13-2023 14:47-0400 Diastolic blood pressure 71 mm[Hg] Kimberlyn Janet [employer] Work Phone: [place].; [employer]. Comment on above: Patient Position: Sitting; Cuff Location : Left Arm; Cuff Size: Large 04-13-2023 14:47-0400 Heart rate 112 /min Kimberlyn Gonzales LPN Work Phone: [employer].; [employer]. Comment on above: Pattern: Regular 04-13-2023 14:47-0400 Inhaled oxygen concentration 20 % Kimberlyn Gonzales LPN Work Phone: [employer]; [employer]. Comment on above: Room air 04-13-2023 14:47-0400 Inhaled oxygen concentration 21 % Kimberlyn Gonzales [employer] Work Phone: [employer]; [employer]. Comment on above: Room air 04-13-2023 14:47-0400 SaO2% (BldA) [Mass fraction] 86 % Kimberlyn Gonzales LPN Work Phone: [employer]; [employer]. 04-13-2023 14:47-0400 Systolic blood pressure 117 mm[Hg] Kimberlyn Gonzales LPN Work Phone: [employer]; [employer]. Comment on above: Patient Position: Sitting; Cuff Location : Left Arm; Cuff Size: Large 10-18-2022 14:34-0400 Body height 177.8 cm Kimberlyn Gonzales LPN Work Phone: [employer]; [employer]. 10-18-2022 14:34-0400 Body mass index (BMI) [Ratio] 32.28 kg/m2 Kimberlyn Gonzales [employer] Work Phone: [employer]; [employer]. 10-18-2022 14:34-0400 Body surface area Derived from formula 2.19 m2 Kimberlyncitlaly Gonzales [employer] Work Phone: [employer]; [employer]. 10-18-2022 14:34-0400 Body weight 102.06 kg Kimberlyn Janet [employer] Work Phone: [employer].; [employer]. 10-18-2022 14:34-0400 Diastolic blood pressure 77 mm[Hg] Kimberlyn Janet [employer] Work Phone: [place].; [employer]. Comment on above: Patient Position: Sitting; Cuff Location : Left Arm; Cuff Size: Standard 10-18-2022 14:34-0400 Heart rate 110 /min Kimberlyn Janet [employer] Work Phone: [place].; [employer]. Comment on above: Pattern: Regular 10-18-2022 14:34-0400 Systolic blood pressure 135 mm[Hg] Kimberlyn Janet [employer] Work Phone: [employer].; [employer]. Comment on above: Patient Position: Sitting; Cuff Location : Left Arm; Cuff Size: Standard 02-08-2022 14:23-0400 Body height 177.8 cm Eleanor Parekhr [facility]3[employer].; [employer]. 02-08-2022 14:23-0400 Body mass index (BMI) [Ratio] 33.29 kg/m2 Eleanor Parekhr [facility] Hospital[facility].; [employer]. 02-08-2022 14:23-0400 Body surface area Derived from formula 2.22 m2 Eleanor Parekhr [facility].; [employer]. 02-08-2022 14:23-0400 Body weight 105.24 kg Eleanor Parekhr [facility].; [employer]. 02-08-2022 14:23-0400 Diastolic blood pressure 67 mm[Hg] Eleanor Parekhr [facility].; [employer]. Comment on above: Patient Position: Sitting; Cuff Location : Left Arm; Cuff Size: Standard 02-08-2022 14:23-0400 Heart rate 67 /min Eleanor Parekhr [employer]GR[employer] OPERATOR [place].; [employer]. Comment on above: Pattern: Regular 02-08-2022 14:23-0400 Systolic blood pressure 109 mm[Hg] Eleanor Martinez [facility]3[employer].; [place] [employer]. Comment on above: Patient Position: Sitting; Cuff Location : Left Arm; Cuff Size: Standard 12-26-2020 13:45-0400 Body height 177.8 cm Kimberlyn Janet [employer] Work Phone: [place] [employer].; [employer] 12-26-2020 13:45-0400 Body mass index (BMI) [Ratio] 33.58 kg/m2 Kimberlyn Janet [employer] Work Phone: [place] [employer].; [place] [employer] 12-26-2020 13:45-0400 Body surface area Derived from formula 2.23 m2 Kimberlyn Janet [employer] Work Phone: [place] [employer].; [place] [employer] 12-26-2020 13:45-0400 Body weight 106.14 kg Kimberlyn Janet [employer] Work Phone: [place]; [place]. 12-26-2020 13:45-0400 Diastolic blood pressure 80 mm[Hg] Kimberlyn Janet [employer] Work Phone: [place] [employer]; [place]. Comment on above: Patient Position: Sitting; Cuff Location : Left Arm; Cuff Size: Standard 12-26-2020 13:45-0400 Heart rate 93 /min Kimberlyn Janet [employer] Work Phone: [place].; [employer]. Comment on above: Pattern: Regular 12-26-2020 13:45-0400 Systolic blood pressure 129 mm[Hg] Kimberlyn Janet [employer] Work Phone: [place].; [employer]. Comment on above: Patient Position: Sitting; Cuff Location : Left Arm; Cuff Size: Standard 08-29-2020 15:27-0500 Body height 177.8 cm Kimberlyn Gonzales LPN Work Phone: [place] [employer].; [employer] 08-29-2020 15:27-0500 Body mass index (BMI) [Ratio] 33.29 kg/m2 Kimberlyn Gonzales LPN Work Phone: [place] [employer].; [place] [employer] 08-29-2020 15:27-0500 Body surface area Derived from formula 2.22 m2 Kimberlyn Gonzales LPN Work Phone: [place] [employer].; [place] [employer] 08-29-2020 15:27-0500 Body weight 105.24 kg Kimberlyn Gonzales LPN Work Phone: [place] [employer].; [employer] 08-29-2020 15:27-0500 Diastolic blood pressure 72 mm[Hg] Kimberlyn Gonzales LPN Work Phone: [place] [employer]; [employer]. Comment on above: Patient Position: Sitting; Cuff Location : Left Arm; Cuff Size: Standard 08-29-2020 15:27-0500 Heart rate 64 /min Kimberlyn Gonzales LPN Work Phone: [place] [employer] [facility] CenterEnergiachiara.it; [employer]. Comment on above: Pattern: Regular 08-29-2020 15:27-0500 Systolic blood pressure 121 mm[Hg] Kimberlyn Gonzales LPN Work Phone: [place] [employer].; [place]. Comment on above: Patient Position: Sitting; Cuff Location : Left Arm; Cuff Size: Standard 03-21-2020 15:32-0400 Body height 177.8 cm Destiny Melvin [facility] [employer] [facility]3[employer].; [place]. 03-21-2020 15:32-0400 Body mass index (BMI) [Ratio] 33.14 kg/m2 Dsetiny Melvin [facility] [employer].; [place]. 03-21-2020 15:32-0400 Body surface area Derived from formula 2.22 m2 Destiny Quinterougg [employer] [place] [employer] [address] 03-21-2020 15:32-0400 Body weight 104.78 kg Destiny Quinterougg [employer] [place] [employer] [address] 03-21-2020 15:32-0400 Diastolic blood pressure 83 mm[Hg] Destiny Zaugg [employer] [place] [employer] [address] Comment on above: Patient Position: Sitting; Cuff Location : Left Arm; Cuff Size: Standard 03-21-2020 15:32-0400 Heart rate 71 /min Destiny Quinterougg [employer] [place] [employer] [facility], [employer].; [address], [employer]. Comment on above: Pattern: Regular 03-21-2020 15:32-0400 Systolic blood pressure 131 mm[Hg] Destiny Ingridugg [employer] [place] [employer] [address] Comment on above: Patient Position: Sitting; Cuff Location : Left Arm; Cuff Size: Standard 08-24-2019 14:56-0500 Body height 177.8 cm Kimberlyn Crestock [employer] Work Phone: [address], [employer].; [address], [employer]. 08-24-2019 14:56-0500 Body mass index (BMI) [Ratio] 33.29 kg/m2 [employer]MER [employer]ER Work Phone: [address], [employer].; [address], [employer] 08-24-2019 14:56-0500 Body surface area Derived from formula 2.22 m2 KimberlynHigh Society Freeride Companyy TRIMMER SAWYER Work Phone: [address], [employer].; [address], [employer]. 08-24-2019 14:56-0500 Body weight 105.24 kg [employer] TR[employer]MER [employer]ER Work Phone: [address], [employer].; [address] 08-24-2019 14:56-0500 Diastolic blood pressure 79 mm[Hg] PerBluey [employer] Work Phone: [place].; [place]. Comment on above: Patient Position: Sitting; Cuff Location : Left Arm; Cuff Size: Standard 08-24-2019 14:56-0500 Heart rate 108 /min Kimberlyn Solisy [employer] Work Phone: [employer].; [employer]. Comment on above: Pattern: Regular 08-24-2019 14:56-0500 Systolic blood pressure 119 mm[Hg] Kimberlyn Solisy [employer] Work Phone: [employer].; [employer]. Comment on above: Patient Position: Sitting; Cuff Location : Left Arm; Cuff Size: Standard 05-16-2019 10:03-0500 Body height 177.8 cm Kimberlyn Gonzales [employer] Work Phone: [employer]; [employer]. 05-16-2019 10:03-0500 Body mass index (BMI) [Ratio] 32.71 kg/m2 Kimberlyn Solisy [employer] Work Phone: [employer]; [employer]. 05-16-2019 10:03-0500 Body surface area Derived from formula 2.21 m2 Kimberlyn Solisy [employer] Work Phone: [employer]; [employer]. 05-16-2019 10:03-0500 Body temperature 98 [degF] Kimberlyn Gonzales LPN Work Phone: [employer]; [employer]. Comment on above: Method: Tympanic 05-16-2019 10:03-0500 Body weight 103.42 kg Kimberlyn Gonzales [employer] Work Phone: [employer].; [employer]. 05-16-2019 10:03-0500 Diastolic blood pressure 72 mm[Hg] Kimberlyn Solisy [employer] Work Phone: [employer].; [employer]. Comment on above: Patient Position: Sitting; Cuff Location : Left Arm; Cuff Size: Standard 05-16-2019 10:03-0500 Heart rate 94 /min Kimberlyn Solisy [employer] Work Phone: [place].; [employer]. Comment on above: Pattern: Regular 05-16-2019 10:03-0500 Inhaled oxygen concentration 20 % Kimberlyn Gonzales LPN Work Phone: [employer].; [employer]. Comment on above: Room air 05-16-2019 10:03-0500 Inhaled oxygen concentration 21 % Kimberlyn Gonzales LPN Work Phone: [place].; [employer]. Comment on above: Room air 05-16-2019 10:03-0500 SaO2% (BldA) [Mass fraction] 90 % Kimberlyn Gonzales LPN Work Phone: [employer]; [employer]. 05-16-2019 10:03-0500 Systolic blood pressure 106 mm[Hg] Kimberlyn Gonzales LPN Work Phone: [employer]; [employer]. Comment on above: Patient Position: Sitting; Cuff Location : Left Arm; Cuff Size: Standard 05-10-2019 16:13-0500 Body height 177.8 cm Kimberlyn Gonzales LPN Work Phone: [employer]; [employer]. 05-10-2019 16:13-0500 Body mass index (BMI) [Ratio] 33.86 kg/m2 Kimberlyn Gonzales LPN Work Phone: [place]; [employer]. 05-10-2019 16:13-0500 Body surface area Derived from formula 2.24 m2 Kimberlyn Gonzales LPN Work Phone: [employer]; [employer]. 05-10-2019 16:13-0500 Body temperature 99.9 [degF] Kimberlyn Gonzales LPN Work Phone: [employer]; [employer]. Comment on above: Method: Tympanic 05-10-2019 16:13-0500 Body weight 107.05 kg Kimberlyn Gonzales LPN Work Phone: [employer].; [employer]. 05-10-2019 16:13-0500 Diastolic blood pressure 65 mm[Hg] Kimberlyn Gonzales [employer] Work Phone: [employer].; [employer]. Comment on above: Patient Position: Sitting; Cuff Location : Left Arm; Cuff Size: Standard 05-10-2019 16:13-0500 Heart rate 105 /min Kimberlyn Gonzales LPN Work Phone: [employer]; [employer]. Comment on above: Pattern: Regular 05-10-2019 16:13-0500 Inhaled oxygen concentration 20 % Kimberlyn Gonzales LPN Work Phone: [employer]; [employer]. Comment on above: Room air 05-10-2019 16:13-0500 Inhaled oxygen concentration 21 % Kimberlyn Gonzales LPN Work Phone: [employer]; [employer]. Comment on above: Room air 05-10-2019 16:13-0500 SaO2% (BldA) [Mass fraction] 89 % Kimberlyn Gonzales LPN Work Phone: [employer]; [employer]. 05-10-2019 16:13-0500 Systolic blood pressure 111 mm[Hg] Kimberlyn Gonzales LPN Work Phone: [employer]; [employer]. Comment on above: Patient Position: Sitting; Cuff Location : Left Arm; Cuff Size: Standard 08-28-2018 09:35-0500 Body height 177.8 cm Kimberlyn Gonzales LPN Work Phone: [employer]; [employer]. 08-28-2018 09:35-0500 Body mass index (BMI) [Ratio] 34.87 kg/m2 Kimberlyn Solisy [employer] Work Phone: [employer]; [employer] 08-28-2018 09:35-0500 Body surface area Derived from formula 2.27 m2 Kimberlyn Janet [employer] Work Phone: [employer].; [employer]. 08-28-2018 09:35-0500 Body weight 110.22 kg Kimberlyn Janet LPN Work Phone: [employer].; [employer]. 08-28-2018 09:35-0500 Diastolic blood pressure 88 mm[Hg] Kimberlyn Gonzales [employer] Work Phone: [employer].; [employer]. Comment on above: Patient Position: Sitting; Cuff Location : Left Arm; Cuff Size: Standard 08-28-2018 09:35-0500 Heart rate 64 /min Kimberlyn Janet [employer] Work Phone: [employer]; [employer]. Comment on above: Pattern: Regular 08-28-2018 09:35-0500 Systolic blood pressure 154 mm[Hg] Kimberlyn Gonzales LPN Work Phone: [employer].; [employer]. Comment on above: Patient Position: Sitting; Cuff Location : Left Arm; Cuff Size: Standard 08-10-2017 14:31-0500 Body height 177.8 cm Kimberlyn Janet [employer] Work Phone: [employer].; [employer]. 08-10-2017 14:31-0500 Body mass index (BMI) [Ratio] 33.14 kg/m2 Kimberlyn Janet [employer] Work Phone: [employer].; [employer]. 08-10-2017 14:31-0500 Body surface area Derived from formula 2.22 m2 Kimberlyn Janet [employer] Work Phone: [employer].; [employer]. 08-10-2017 14:31-0500 Body temperature 98.5 [degF] Kimberlyn Janet [employer] Work Phone: [employer].; [employer]. Comment on above: Method: Tympanic 08-10-2017 14:31-0500 Body weight 104.78 kg Kimberlyn Gonzales [employer] Work Phone: [place].; [employer]. 08-10-2017 14:31-0500 Diastolic blood pressure 74 mm[Hg] Kimberlyncitlaly Solisy [employer] Work Phone: [place].; [employer]. Comment on above: Patient Position: Sitting; Cuff Location : Left Arm; Cuff Size: Large 08-10-2017 14:31-0500 Heart rate 68 /min Kimberlyn Solisy [employer] Work Phone: [place].; [employer]. Comment on above: Pattern: Regular 08-10-2017 14:31-0500 Inhaled oxygen concentration 20 % Kimberlyn Janet [employer] Work Phone: [employer].; [employer]. Comment on above: Room air 08-10-2017 14:31-0500 Inhaled oxygen concentration 21 % Kimberlyn Solisy [employer] Work Phone: [employer].; [employer]. Comment on above: Room air 08-10-2017 14:31-0500 SaO2% (BldA) [Mass fraction] 98 % Kimberlyn Solisy [employer] Work Phone: [place].; [employer]. 08-10-2017 14:31-0500 Systolic blood pressure 133 mm[Hg] Kimberlyn Janet [employer] Work Phone: [employer].; [employer]. Comment on above: Patient Position: Sitting; Cuff Location : Left Arm; Cuff Size: Large 12-24-2016 14:39-0400 Body height 177.8 cm Kimberlyn Janet [employer] Work Phone: [employer].; [employer]. 12-24-2016 14:39-0400 Body mass index (BMI) [Ratio] 32.71 kg/m2 Kimberlyn Janet [employer] Work Phone: [employer]; [employer]. 12-24-2016 14:39-0400 Body surface area Derived from formula 2.21 m2 Kimberlyn Gonzales LPN Work Phone: [employer].; [employer]. 12-24-2016 14:39-0400 Body weight 103.42 kg Kimberlyn Gonzales LPN Work Phone: [employer].; [employer]. 12-24-2016 14:39-0400 Diastolic blood pressure 81 mm[Hg] Kimberlyn Gonzales LPN Work Phone: [employer]; [employer]. Comment on above: Patient Position: Sitting; Cuff Location : Left Arm; Cuff Size: Large 12-24-2016 14:39-0400 Heart rate 62 /min Kimberlyn Gonzales LPN Work Phone: [employer]; [employer]. Comment on above: Pattern: Regular 12-24-2016 14:39-0400 Systolic blood pressure 130 mm[Hg] Kimberlyn Gonzales LPN Work Phone: [employer]; [employer]. Comment on above: Patient Position: Sitting; Cuff Location : Left Arm; Cuff Size: Large 01-15-2016 10:53-0400 Body weight 103.42 kg Neilee L Vess [employer].; [employer]. 01-15-2016 10:53-0400 Diastolic blood pressure 86 mm[Hg] Neilee L Vess [employer].; [employer]. Comment on above: Patient Position: Sitting; Cuff Location : Right Arm; Cuff Size: Standard 01-15-2016 10:53-0400 Heart rate 58 /min Neilee L Vess [employer].; [employer]. Comment on above: Pattern: Regular 01-15-2016 10:53-0400 Systolic blood pressure 143 mm[Hg] Neilee L Vess [employer].; [employer]. Comment on above: Patient Position: Sitting; Cuff Location : Right Arm; Cuff Size: Standard 05-15-2014 10:50-0500 Body height 177.8 cm Kimberlyn Gonzales [employer] Work Phone: [place].; [employer]. 05-15-2014 10:50-0500 Body mass index (BMI) [Ratio] 35.87 kg/m2 Kimberlyn Gonzales [employer] Work Phone: [place].; [employer]. 05-15-2014 10:50-0500 Body surface area Derived from formula 2.3 m2 Kimberlyn Gonzales [employer] Work Phone: [place].; [employer]. 05-15-2014 10:50-0500 Body weight 113.4 kg Kimberlyn Gonzales [employer] Work Phone: [place].; [employer]. 05-15-2014 10:50-0500 Diastolic blood pressure 100 mm[Hg] Kimberlyn Gonzales [employer] Work Phone: [employer]; [employer]. Comment on above: Patient Position: Sitting; Cuff Location : Left Arm; Cuff Size: Large 05-15-2014 10:50-0500 Heart rate 65 /min Kimberlyn Gonzales [employer] Work Phone: [employer]; [employer]. Comment on above: Pattern: Regular 05-15-2014 10:50-0500 Systolic blood pressure 182 mm[Hg] Kimberlyn Solisy [employer] Work Phone: [employer].; [employer]. Comment on above: Patient Position: Sitting; Cuff Location : Left Arm; Cuff Size: Large 05-30-2013 13:03-0500 Body height 177.8 cm Kimberlyn Gonzales [employer] Work Phone: [employer].; [employer]. 05-30-2013 13:03-0500 Body mass index (BMI) [Ratio] 36.44 kg/m2 Kimberlyn Solisy [employer] Work Phone: [employer]; [employer]. 05-30-2013 13:03-0500 Body surface area Derived from formula 2.31 m2 Kimberlyn Solisy [employer] Work Phone: [employer]; [employer]. 05-30-2013 13:03-0500 Body weight 115.21 kg Kimberlyn Gonzales [employer] Work Phone: [employer]; [employer]. 05-30-2013 13:03-0500 Diastolic blood pressure 90 mm[Hg] Kimberlyncitlaly Solisy [employer] Work Phone: [employer]; [employer]. Comment on above: Patient Position: Sitting; Cuff Location : Left Arm; Cuff Size: Large 05-30-2013 13:03-0500 Heart rate 69 /min Kimberlyncitlaly Solisy [employer] Work Phone: [employer]; [employer]. Comment on above: Pattern: Regular 05-30-2013 13:03-0500 Systolic blood pressure 170 mm[Hg] Kimberlyn Janet [employer] Work Phone: [employer]; [employer]. Comment on above: Patient Position: Sitting; Cuff Location : Left Arm; Cuff Size: Large 05-29-2013 12:01-0500 Diastolic blood pressure 109 mm[Hg] Kimberlyn Janet [employer] Work Phone: [employer]; [employer]. Comment on above: Patient Position: Sitting; Cuff Location : Left Arm; Cuff Size: Large 05-29-2013 12:01-0500 Heart rate 69 /min Kimberlyn Janet [employer] Work Phone: [employer]; [employer]. Comment on above: Pattern: Regular 05-29-2013 12:01-0500 Systolic blood pressure 200 mm[Hg] Kimberlyn Janet [employer] Work Phone: [employer]; [employer]. Comment on above: Patient Position: Sitting; Cuff Location : Left Arm; Cuff Size: Large 03-30-2013 16:05-0400 Body height 177.8 cm Kimberlyn Solisy [employer] Work Phone: [employer]; [employer]. 03-30-2013 16:05-0400 Body mass index (BMI) [Ratio] 36.01 kg/m2 Kimberlyn Janet [employer] Work Phone: [employer]; [employer]. 03-30-2013 16:05-0400 Body surface area Derived from formula 2.3 m2 Kimberlyn Solisy [employer] Work Phone: [employer]; [employer]. 03-30-2013 16:05-0400 Body weight 113.85 kg Kimberlyn Solisy [employer] Work Phone: [employer]; [employer]. 03-30-2013 16:05-0400 Diastolic blood pressure 114 mm[Hg] Kimberlyn Janet [employer] Work Phone: [employer]; [employer]. Comment on above: Patient Position: Sitting; Cuff Location : Left Arm; Cuff Size: Large 03-30-2013 16:05-0400 Heart rate 64 /min Kimberlyn Janet [employer] Work Phone: [employer]; [employer]. Comment on above: Pattern: Regular 03-30-2013 16:05-0400 Systolic blood pressure 181 mm[Hg] Kimberlyn Janet [employer] Work Phone: [employer]; [employer]. Comment on above: Patient Position: Sitting; Cuff Location : Left Arm; Cuff Size: Large 04-27-2012 14:38-0400 Body weight 117.03 kg Neilee L Vess [employer].; [employer]. 04-27-2012 14:38-0400 Diastolic blood pressure 100 mm[Hg] Neilee L Vess [employer]MER [employer] [place] [employer] [facility]3[employer].; [employer]. Comment on above: Patient Position: Sitting; Cuff Location : Left Arm; Cuff Size: Standard 04-27-2012 14:38-0400 Heart rate 64 /min Neilee L Vess [employer]MER [employer] [facility].; [employer]. Comment on above: Pattern: Regular 04-27-2012 14:38-0400 Systolic blood pressure 168 mm[Hg] Neilee L Vess [employer]MER [employer] [place] [employer].; [employer]. Comment on above: Patient Position: Sitting; Cuff Location : Left Arm; Cuff Size: Standard 05-24-2011 14:39-0500 Body weight 113.4 kg Kimberlyn Gonzales [employer] Work Phone: [place] [employer].; [employer]. 05-24-2011 14:39-0500 Diastolic blood pressure 101 mm[Hg] Kimberlyn Solisy [employer] Work Phone: [place] [employer].; [employer]. Comment on above: Patient Position: Sitting; Cuff Location : Left Arm; Cuff Size: Large 05-24-2011 14:39-0500 Heart rate 67 /min Kimberlyn Gonzales [employer] Work Phone: [place] [employer].; [employer]. Comment on above: Pattern: Regular 05-24-2011 14:39-0500 Systolic blood pressure 181 mm[Hg] Kimberlyn Gonzales [employer] Work Phone: [place] [employer] [facility]3[employer].; [employer]. Comment on above: Patient Position: Sitting; Cuff Location : Left Arm; Cuff Size: Large 09-17-2010 14:43-0400 Body weight 114.31 kg Thu Mariee [employer].; [employer]. 09-17-2010 14:43-0400 Diastolic blood pressure 91 mm[Hg] Thu Mariee LPN [employer].; [employer]. Comment on above: Patient Position: Sitting; Cuff Location : Left Arm; Cuff Size: Standard 09-17-2010 14:43-0400 Heart rate 64 /min Thu Mariee LPN [place] [employer].; [employer]. Comment on above: Pattern: Regular 09-17-2010 14:43-0400 Systolic blood pressure 146 mm[Hg] Thu Mariee [employer].; [employer]. Comment on above: Patient Position: Sitting; Cuff Location : Left Arm; Cuff Size: Standard 03-16-2010 09:16-0400 Diastolic blood pressure 110 mm[Hg] Kimberlyn Janet TRIMMER SAWYER Work Phone: [facility] [employer]. Comment on above: Patient Position: Sitting; Cuff Location : Right Arm; Cuff Size: Standard 03-16-2010 09:16-0400 Heart rate 58 /min Kimberlyn Janet [employer]MER [employer] Work Phone: [facility] [employer]. Comment on above: Pattern: Regular 03-16-2010 09:16-0400 Systolic blood pressure 190 mm[Hg] Kimberlyn Janet TRIMMER [employer]ER Work Phone: [facility] [employer]. Comment on above: Patient Position: Sitting; Cuff Location : Right Arm; Cuff Size: Standard 03-16-2010 09:08-0400 Body weight 110.68 kg Kimberlyn Janet [employer]IMMER [employer] Work Phone: [facility] [employer]. 03-16-2010 09:08-0400 Diastolic blood pressure 106 mm[Hg] Kimberlyn Janet TRIMMER [employer]ER Work Phone: [facility] [employer]. Comment on above: Patient Position: Sitting; Cuff Location : Left Arm; Cuff Size: Standard 03-16-2010 09:08-0400 Heart rate 60 /min Kimberlyn Janet [employer]IMMER [employer] Work Phone: [facility]. Comment on above: Pattern: Regular 03-16-2010 09:08-0400 Systolic blood pressure 209 mm[Hg] Kimberlyn Janet TRIMMER [employer]WYER Work Phone: [facility]; [facility] Comment on above: Patient Position: Sitting; Cuff Location : Left Arm; Cuff Size: Standard Encounters Encounter Date Encounter Type Care Provider Facility Start: 12-20-2024 ambulatory [facility] Facility:[facility] Start: 12-19-2024 ambulatory [facility] Facility:[facility] Start: 11-21-2024 End: 11-21-[address] Cristian Lauren MD [facility] Work Phone: Start: 11-21-2024 End: 11-21-[address] Lorrie Downing MD Work Phone: [facility] Work Phone: Start: 10-10-2024 End: 10-10-2024 Office outpatient visit 10 minutes Lorrie Downing MD Work Phone: [facility] Start: 10-06-2024 End: 10-06-2024 Historical Summary Lorrie Downing MD Work Phone: [facility] Start: 10-01-2024 End: 10-01-2024 Historical Summary Lorrie Downing MD Work Phone: [facility] Start: 09-19-2024 End: 09-19-2024 Historical Summary Lorrie Downing MD Work Phone: [facility] Start: 09-12-2024 End: 09-12-2024 ambulatory LORRIE DOWNING [facility] Start: 09-06-2024 Review Lorrie shen MD Work Phone: [facility] Start: 09-05-2024 End: 09-05-2024 Patient encounter procedure Lorrie Downing MD Work Phone: [facility] Start: 09-05-2024 Patient encounter procedure Kimberlyn Gonzales LPN Work Phone: [facility]; [facility] Start: 09-05-2024 Telephone follow-up Lor[facility]acon [facility] Start: 09-04-2024 End: 09-04-2024 Historical Summary Lorrie Downing MD [facility] Phone[facility] Start: 09-04-2024 End: 09-04-[address] Lorrie Downing MD Work Phone: [facility] Work Phone: Start: 09-04-2024 End: 09-04-2024 Patient encounter procedure Radha [facility] -[facility] Work Phone: Start: 09-04-2024 End: 09-04-2024 [facility] Start: 07-02-2024 End: 07-02-2024 Historical Summary [facility] Start: 02-29-2024 End: 02-29-2024 ambulatory TomSav Collins Facility:[facility] Start: 08-18-2023 End: 08-18-[address] [facility] Work Phone: Start: 08-18-2023 End: 08-18-[address] [facility] Work Phone: Start: 05-19-2023 End: 05-19-2023 Historical Summary Lorrie Downing MD Work Phone: [facility] Start: 05-19-2023 End: 05-19-2023 Historical Summary Lorrie Downing MD Work Phone: [facility] Start: 04-20-2023 End: 04-20-2023 Orders Lorrie Downing MD Work Phone[facility] Start: 04-20-2023 End: 04-20-2023 Patient encounter procedure Lorrie Dowinng MD Work Phone[facility] Start: 04-13-2023 End: 04-13-2023 Patient encounter procedure Lorrie Downing MD Work Phone: [facility] Start: 02-15-2023 End: 02-15-[address] [facility] Work Phone: Start: 02-15-2023 End: 02-15-2023 [facility] Start: 10-18-2022 End: 10-18-2022 Patient encounter procedure Lorrie Downing MD Work Phone: [facility] Start: 10-14-2022 End: 10-14-[address] [facility] Work Phone: Start: 10-14-2022 End: 10-14-2022 [facility] Start: 08-11-2022 End: 08-11-2022 Historical Summary Lorrie Downing MD Work Phone: [facility] Start: 07-19-2022 End: 07-19-[address] [facility] Work Phone: Start: 07-19-2022 End: 07-19-2022 [facility] Start: 04-15-2022 End: 04-15-[address] [facility] Work Phone: Start: 04-15-2022 End: 04-15-2022 [facility] Start: 02-08-2022 End: 02-08-2022 Patient encounter procedure Lorrie Downing MD Work Phone: [facility] Start: 01-26-2022 End: 01-27-2022 Orders Lorrie Downing MD Work Phone: [facility] Start: 01-05-2022 End: 01-05-2022 [facility] Start: 01-05-2022 End: 01-06-2022 Orders Lorrie Downing MD Work Phone: [facility] Start: 10-01-2021 End: 10-01-[address] [facility] Start: 04-09-2021 End: 04-09-2021 Orders Lorrie Downing MD Work Phone: [facility] Start: 12-26-2020 End: 12-26-2020 Patient encounter procedure Lorrie Downing MD Work Phone: [facility] Start: 08-29-2020 End: 08-29-2020 Patient encounter procedure Lorrie Downing MD Work Phone: [facility] Start: 06-20-2020 End: 06-20-2020 Follow-up encounter Lorrie Downing MD Work Phone: [facility] Start: 03-21-2020 End: 03-21-2020 Patient encounter procedure Lorrie Downing MD Work Phone: [facility] Start: 11-02-2019 End: 11-02-2019 Historical Summary Lorrie Downing MD Work Phone: [facility] Start: 08-24-2019 End: 08-24-2019 Office outpatient visit 15 minutes Lorrie Downing MD Work Phone: [facility] Start: 05-16-2019 End: 05-16-2019 Office outpatient visit 25 minutes Lorrie Downing MD Work Phone: [facility] Start: 05-10-2019 End: 05-10-2019 Office outpatient visit 15 minutes Lorrie Downing MD Work Phone: [facility] Start: 04-18-2019 End: 04-18-2019 [employer] Contact Call Lorrie Downing MD Work Phone: [facility] Start: 03-13-2019 End: 03-13-2019 Telephone follow-up Lorrie Downing MD Work Phone: [facility] Start: 03-13-2019 End: 03-13-2019 Historical Summary Lorrie Downing MD Work Phone: [facility] Start: 03-07-2019 End: 03-07-2019 Historical Summary Lorrie Downing MD Work Phone: [facility] Start: 02-19-2019 End: 02-19-2019 Telephone follow-up Lorrie Downing MD Work Phone: [facility] Start: 10-05-2018 End: 10-05-2018 Orders Lorrie Downing MD Work Phone: [facility] Start: 10-02-2018 End: 10-02-2018 Orders Lorrie Downing MD Work Phone: [facility] Start: 08-28-2018 End: 08-29-2018 Patient encounter procedure Lorrie Downing MD Work Phone: [facility] Start: 03-07-2018 End: 03-07-2018 Follow-up encounter Lorrie Downing MD Work Phone: [facility] Start: 01-03-2018 End: 01-03-2018 [employer] Contact Call Lorrie Downing MD Work Phone: [facility] Start: 11-29-2017 End: 11-30-2017 Orders Lorrie Downing MD Work Phone: [facility] Start: 11-01-2017 End: 11-01-2017 [employer] Contact Call Lorrie Downing MD Work Phone: [facility] Start: 09-06-2017 End: 09-06-2017 Historical Summary Lorrie Downing MD Work Phone: [facility] Start: 08-10-2017 End: 08-10-2017 Patient encounter procedure Lorrie Downing MD Work Phone: [facility] Start: 12-24-2016 End: 12-24-2016 Patient encounter procedure Lorrie Downing MD Work Phone: [facility] Start: 12-23-2016 End: 12-23-2016 Historical Summary Lorrie Downing MD Work Phone: [facility] Start: 12-20-2016 End: 12-20-2016 Historical Summary Lorrie Downing MD Work Phone: [facility] Start: 02-23-2016 End: 02-23-2016 Historical Summary Lorrie Downing MD Work Phone: [facility] Start: 01-15-2016 End: 01-15-2016 Patient encounter procedure Lorrie Downing MD Work Phone: [facility] Start: 01-07-2016 End: 01-07-2016 Orders Lorrie Downing MD Work Phone: [facility] Start: 11-24-2015 End: 11-24-2015 Orders Lorrie Downing MD Work Phone: [facility] Start: 05-15-2015 End: 05-15-2015 Orders Lorrie Downing MD Work Phone: [facility] Start: 05-27-2014 End: 05-27-2014 Orders Lorrie Downing MD Work Phone: [facility] Start: 05-23-2014 End: 05-23-2014 Historical Summary Lorrie Downing MD Work Phone: [facility] Start: 05-15-2014 End: 05-15-2014 Patient encounter procedure Lorrie Downing MD Work Phone: [facility] Start: 04-30-2014 End: 05-01-2014 Orders Lorrie Downing MD Work Phone: [facility] Start: 10-05-2013 End: 10-05-2013 Orders Lorrie Downing MD Work Phone: [facility] Start: 09-21-2013 End: 09-21-2013 Historical Summary Lorrie Downing MD Work Phone: [facility] Start: 09-21-2013 End: 09-21-2013 Orders Lorrie Downing MD Work Phone: [facility] Start: 09-14-2013 End: 09-14-2013 Orders Lorrie Downing MD Work Phone: [facility] Start: 07-13-2013 End: 07-13-2013 Orders Lorrie Downing MD Work Phone: [employer]. Start: 07-09-2013 End: 07-09-2013 Orders Lorrie Downing MD Work Phone: [facility] Start: 06-26-2013 End: 06-26-2013 Medication Lorrie Downing MD Work Phone: [facility] Start: 05-30-2013 End: 05-30-2013 Patient encounter procedure Lorrie Downing MD Work Phone: [facility] Start: 05-29-2013 End: 05-29-2013 Nursing evaluation of patient and report Lorrie Downing MD Work Phone: [facility] Start: 03-30-2013 End: 03-30-2013 Patient encounter procedure Lorrie Downing MD Work Phone: [facility] Start: 04-27-2012 End: 04-27-2012 Patient encounter procedure Lorrie Downing MD Work Phone: [facility] Start: 05-24-2011 End: 05-24-2011 Patient encounter procedure Lorrie Downing MD Work Phone: [facility] Start: 04-30-2011 End: 04-30-2011 Medication Lorrie Downing MD Work Phone: [facility] Start: 09-17-2010 End: 09-17-2010 Patient encounter procedure Lorrie Downing MD Work Phone: [facility] Start: 08-19-2010 End: 08-19-2010 Medication Lorrie Downing MD Work Phone: [facility] Start: 04-20-2010 End: 04-20-2010 Medication [facility] MD [facility] Start: 04-01-2010 End: 04-01-2010 Medication Lorrie Downing MD [facility]: [facility] Start: 03-26-2010 End: 03-26-2010 Orders Lorrie Downing MD [facility]: [facility] Start: 03-20-2010 End: 03-20-2010 Medication Lorrie Downing MD [facility]: [facility] Start: 03-16-2010 End: 03-16-2010 Orders Lorrie Downing MD [facility] Start: 03-16-2010 End: 03-16-2010 Nursing evaluation of patient and report Lorrie Downing MD [facility]: [facility] Start: 03-16-2010 End: 03-16-2010 Medication Lorrie Downing MD [facility] Start: 03-16-2010 End: 03-16-2010 Patient encounter procedure Lorrie Downing MD Work Phone: [facility] Patient encounter procedure Kimberlyn Gonzales LPN Work Phone: [facility] Patient encounter procedure Jessica Fernandez LPN [facility].; [facility] Procedures Date Procedure Procedure Detail Performing Clinician Start: 11-28-2024 End: 11-28-2024 Examination of retina Kimberlyn Gonzales LPN Work Phone: Comment on above: Negative Finding. Dr Selin Huggins, normal but does have cataracts Start: 11-21-2024 End: 11-21-2024 Most Recent Cardio Report Lorrie shen MD Work Phone: Start: 10-10-2024 End: 10-11-2024 Ecg routine ecg w/least 12 lds i&r only Lorrie Downing MD Work Phone: Comment on above: equivocal. I do see some P waves but not a regular rhythm, possible PACs Start: 09-12-2024 End: 09-12-2024 Echocardiography Lorrie Newton Work Phone: Comment on above: 12/17/16 neg, 09/13/19 25 AO root 4.3cm ascending Ao 4.5 cm Start: 09-05-2024 End: 09-20-2024 TTE w or wo fol wcon,Doppler Lorrie escudero MD Work Phone: Start: 09-05-2024 End: 09-05-2024 Adv care pln/ no alt dcsn mkr docd or refusal Lorrie Downing MD Work Phone: Start: 09-05-2024 End: 09-05-2024 Alcohol consumption screening Lorrie Downing MD Work Phone: Comment on above: neg Start: 09-05-2024 End: 09-05-2024 Current tobacco non-user cad cap copd pv dm Lorrie Downing MD Work Phone: Start: 09-05-2024 End: 09-05-2024 Depression screening Lorrie Downing MD Work Phone: Start: 09-05-2024 End: 09-05-2024 Docrev cur meds by eloy escudero MD Work Phone: Start: 09-05-2024 End: 09-06-2024 Ecg routine ecg w/least 12 lds w/i&r Lorrie Downing MD Work Phone: Comment on above: irreg QRS, no p wave s present. Start: 09-05-2024 End: 09-05-2024 Falls risk assessment documented Lorrie Downing MD Work Phone: Start: 09-05-2024 End: 09-05-2024 Hemoglobin A1c/Hemoglobin.total in Blood Kimberlyn Janet [employer]IMMER [employer]ER Work Phone: Comment on above: 7.8 Start: 09-05-2024 End: 09-05-2024 Most recent diastolic blood pressure 80-89 mm hg Lorrie Downing MD Work Phone: Start: 09-05-2024 End: 09-05-2024 Most recent hg a1c>equal to 7.0%&<8.0% Lorrie Downing MD Work Phone: Start: 09-05-2024 End: 09-05-2024 Most recent systolic blood press 130-139mm hg Lorrie Downing MD Work Phone: Start: 09-05-2024 End: 09-05-2024 PPPS, subseq visit Lorrie Newton Work Phone: Start: 09-05-2024 End: 09-05-2024 Pt falls assess docd w/o fall/injury past year Lorrie Downing MD Work Phone: Start: 09-05-2024 End: 09-05-2024 Scr dep neg, no plan reqd Lorrie miles MD Work Phone: Start: 09-05-2024 End: 09-06-2024 Standardized cognitive performance testing Lorrie Downing MD Work Phone: Comment on above: Start: 09-04-2024 End: 09-04-2024 Most Recent Endo Report Lorrie Downing MD Work Phone: Comment on above: no current Endocrino logy records Start: 09-04-2024 End: 09-04-2024 Prostate specific antigen measurement Kimberlyn Gonzales PATRICIA Work Phone: Comment on above: 1.16 per urology This test was perfor med using the [employer] tPSA method. Measured values of a patient sample can vary depending on the testing procedure used. PSA values determined on patient samples by different testing procedures cannot be used interchangeably. If there is a change in PSA assays while monitoring therapy, sequential testing should be performed to confirm baseline values. Start: 04-20-2023 End: 04-20-2023 Adv care pln/ no alt dcsn mkr docd or refusal Lorrie Downing MD Work Phone: Start: 04-20-2023 End: 04-20-2023 Depression screening Lorrie Downing MD Work Phone: Start: 04-20-2023 End: 04-20-2023 Falls risk assessment documented Lorrie Downing MD Work Phone: Start: 04-20-2023 End: 04-20-2023 PPPS, subseq visit Lorrie Newton Work Phone: Start: 04-20-2023 End: 04-20-2023 Pt falls assess docd w/o fall/injury past year Lorrie Downing MD Work Phone: Start: 04-20-2023 End: 04-20-2023 Scr dep neg, no plan reqd Lorrie miles MD Work Phone: Start: 10-18-2022 End: 10-18-2022 Most recent diastolic blood pressure < 80 mm hg Lorrie Downing MD Work Phone: Start: 10-18-2022 End: 07-18-2023 Most recent hg a1c>equal to 8.0%& Lorrie Downing MD Work Phone: Start: 10-18-2022 End: 10-18-2022 Most recent systolic blood press 130-139mm hg Lorrie Downing MD Work Phone: Start: 10-02-2022 End: 10-02-2022 Hemoglobin A1c/Hemoglobin.total in Blood Jessica Fernandez LPN Comment on above: 8.0 Start: 07-09-2022 End: 07-09-2022 Prostate specific antigen measurement Jessica Fernandez LPN Comment on above: 0.01 per urology aft er cancer tx Start: 02-08-2022 End: 02-08-2022 Adv care pln/ no alt dcsn mkr docd or refusal Lorrie Downing MD Work Phone: Start: 02-08-2022 End: 02-08-2022 Depression screening Lorrie Downing MD Work Phone: Start: 02-08-2022 End: 02-08-2022 Falls risk assessment documented Lorrie Downing MD Work Phone: Start: 02-08-2022 End: 02-08-2022 PPPS, subseq visit Lorrie Newton Work Phone: Start: 02-08-2022 End: 02-08-2022 Pt falls assess docd w/o fall/injury past year Lorrie Downing MD Work Phone: Start: 02-08-2022 End: 02-08-2022 Scr dep neg, no plan reqd Lorrie miles MD Work Phone: Start: 01-26-2022 End: 01-26-2022 Lab findings surveillance Jessica Fernandez LPN Comment on above: 197 Start: 01-26-2022 End: 01-26-2022 Lipid panel Jessica Fernandez LPN Comment on above: Normal. tc 149 hdl 4 6 ldl 78 trig 148 Start: 12-26-2020 End: 08-10-2021 Most recent hg a1c>equal to 8.0%& Lorrie Downing MD Work Phone: Start: 12-26-2020 End: 12-26-2020 Depression screening Lorrie Downing MD Work Phone: Start: 12-26-2020 End: 12-26-2020 Docrev cur meds by eloy escudero MD Work Phone: Start: 12-26-2020 End: 12-26-2020 Falls risk assessment documented Lorrie Downing MD Work Phone: Start: 12-26-2020 End: 12-26-2020 Most recent diastolic blood pressure 80-89 mm hg Lorrie Downing MD Work Phone: Start: 12-26-2020 End: 12-26-2020 Most recent systolic blood pressure <130 mm hg Lorrie Downing MD Work Phone: Start: 12-26-2020 End: 12-26-2020 PPPS, subseq visit Lorrie Newton Work Phone: Start: 12-26-2020 End: 12-26-2020 Pt falls assess docd w/o fall/injury past year Lorrie Downing MD Work Phone: Start: 12-26-2020 End: 12-26-2020 Scr dep neg, no plan reqd Lorrie miles MD Work Phone: Start: 09-07-2020 End: 08-10-2021 Most recent hg a1c>equal to 8.0%& Lorrie Downing MD Work Phone: Start: 08-29-2020 End: 08-29-2020 Docrev cur meds by eloy escudero MD Work Phone: Start: 08-29-2020 End: 08-29-2020 Most recent diastolic blood pressure < 80 mm hg Lorrie Downing MD Work Phone: Start: 08-29-2020 End: 08-29-2020 Most recent systolic blood pressure <130 mm hg Lorrie Downing MD Work Phone: Start: 11-02-2019 End: 11-02-2019 Radioisotope scan of bone Eleanor Greene Comment on above: Within Normal Limits . Start: 05-16-2019 End: 05-16-2019 Most recent diastolic blood pressure < 80 mm hg Lorrie Downing MD Work Phone: Start: 05-16-2019 End: 05-16-2019 Most recent hemoglobin a1c level >9.0% Lorrie Downing MD Work Phone: Start: 05-16-2019 End: 05-16-2019 Most recent systolic blood pressure <130 mm hg Lorrie Downing MD Work Phone: Start: 05-10-2019 End: 05-10-2019 Ceftriaxone sodium injection Lorrie escudero MD Work Phone: Start: 05-10-2019 End: 05-14-2019 Ecg routine ecg w/least 12 lds i&r only Lorrie Downing MD Work Phone: Comment on above: nsr Start: 05-10-2019 End: 05-11-2019 Radiologic exam chest 2 views Lorrie Downing MD Work Phone: Start: 02-08-2019 End: 02-08-2019 Prostatectomy Kimberlyn Gonzales LPN Work Phone: Comment on above: for cancer Start: 10-05-2018 End: 10-05-2018 Screening for malignant neoplasm of large intestine Kimberlyn Gonzales LPN Work Phone: Comment on above: Within Normal Limits . colonoscopy, clear, (Lashawn), 10/05/18 stool heme neg Start: 08-28-2018 End: 08-28-2018 Body mass index documented Lorrie cervantes MD Work Phone: Start: 08-28-2018 End: 08-28-2018 Current tobacco non-user cad cap copd pv dm Lorrie Downing MD Work Phone: Start: 08-28-2018 End: 08-28-2018 Depression screening Lorrie Downing MD Work Phone: Start: 08-28-2018 End: 08-28-2018 Docrev cur meds by eloy escudero MD Work Phone: Start: 08-28-2018 End: 08-28-2018 Falls risk assessment documented Lorrie Downing MD Work Phone: Start: 08-28-2018 End: 08-28-2018 Most recent diastolic blood pressure 80-89 mm hg Lorrie Downing MD Work Phone: Start: 08-28-2018 End: 08-28-2018 Most recent hemoglobin a1c level gt 7.0-9.0 % Lorrie Downing MD Work Phone: Start: 08-28-2018 End: 08-28-2018 Most recent systolic blood pres>/equal 140 mm hg Lorrie Downing MD Work Phone: Start: 08-28-2018 End: 08-28-2018 Pneumococcal vaccine admin rcvd prior Lorrie Downing MD Work Phone: Start: 08-28-2018 End: 08-28-2018 PPPS, subseq visit Lorrie Newton Work Phone: Start: 08-28-2018 End: 08-28-2018 Pt falls assess docd w/o fall/injury past year Lorrie Downing MD Work Phone: Start: 08-28-2018 End: 08-28-2018 Pt on daily asa/antiplat Lorrie reid MD Work Phone: Start: 08-28-2018 End: 08-28-2018 Scr dep neg, no plan reqd Lorrie miles MD Work Phone: Start: 08-10-2017 End: 08-10-2017 Body mass index documented Lorrie cervantes MD Work Phone: Start: 08-10-2017 End: 08-10-2017 Flu imm no admin doc real Lorrie reid MD Work Phone: Start: 12-31-2016 End: 12-31-2016 [employer] Jessica Fernandez LPN Start: 12-24-2016 End: 12-24-2016 Most recent diastolic blood pressure 80-89 mm hg Lorrie Downing MD Work Phone: Start: 12-24-2016 End: 12-24-2016 Most recent hemoglobin a1c level gt 7.0-9.0 % Lorrie Downing MD Work Phone: Comment on above: at [facility] on 12/16 Start: 12-24-2016 End: 12-24-2016 Most recent systolic blood press 130-139mm hg Lorrie Downing MD Work Phone: Start: 12-17-2016 End: 12-17-2016 Cardiovascular stress testing Eleanor Martinez CMA Comment on above: 12/17/16: ekg stress neg Start: 12-17-2016 End: 12-17-2016 Echocardiography Eleanor Martinez CMA Comment on above: 12/17/16 neg Start: 09-02-2014 End: 09-02-2014 Screening colonoscopy Jessica Fernandez LPN Comment on above: no path, Lashawn, rep eat 5-7 yr Start: 04-13-2010 End: 04-13-2010 Most Recent Endo Report Lorrie Downing MD Work Phone: Start: 03-16-2010 End: 03-26-2010 Dup-scan artl miryam abdl/pel/scrot&/rpr orgn com Lorrie Downing MD Work Phone: Blood pressure monitoring Elentia arcos Jim GOMEZ Comment on above: rare Diabetic Eye Exam Declined Kadie goodrich Jim GOMEZ Comment on above: says he will schedul e soon on 10/18/2022 Examination of retina Buster marisa Fernandez LPN Most Recent Cardio Report Trinidad Downing MD Work Phone: Comment on above: No Cardiology record s 10/06/2024 Plan of Treatment Date Care Activity Detail Author Start: 11-21-2024 Evaluation of diagno stic study results 12 Lead EKG performed by [facility] Start: 10-10-2024 End: 10-11-2024 Ecg routine ecg w/least 12 lds i&r only [employer] [facility]. Comment on above: equivocal. I do see some P waves but not a regular rhythm, possible PACs Start: 10-10-2024 Patient encounter procedure Medical; EXTENDED RTN - 1 mo f/u [facility]. Start: 10-Oct-2024 13:40-04:00 MD Lorrie Downing Appointment Request [facility]. Start: 10-03-2024 Patient encounter procedure Medical; EXTENDED RTN - 1 mo f/u [facility]. Start: 03-Oct-2024 14:50-04:00 MD Lorrie Downing Appointment Request [facility]. Start: 09-07-2024 Urine albumin quantitative MICROALBUMIN, RANDOM URINE W/ CREATININE [uACR] ([id number]) ([id number]) Start: 07-Sep-2024 Request [facility]. Start: 09-05-2024 End: 09-05-2024 TTE w or wo vanesa ortizon,Doppler Echocardiogram, Complete with contrast per protocol if indicated ADULT ([id number]) Date: 05-Sep-2024 [facility]; [facility]. Start: 09-05-2024 Patient encounter procedure Medical; PHYSICAL - [facility] [employer]. Start: 05-Sep-2024 14:10-05:00 MD Lorrie Downing Appointment Request [facility]. Start: 09-05-2024 Ecg routine ecg w/le ast 12 lds w/i&r [facility]. Comment on above: irreg QRS, no p wave s present. Start: 09-05-2024 Standardized cogniti ve performance testing ASSESSMENT USING SHIKHA COGNITIVE ASSESSMENT TOOL ([id number]) Start: 05-Sep-2024 Intent Comments: [facility]; [facility]. Comment on above: Start: 06-05-2024 Patient encounter procedure Medical; PHYSICAL - [facility]. Start: 05-Jun-2024 11:20-05:00 MD Lorrie Downing Appointment Request [facility]. Start: 04-18-2024 Patient encounter procedure Medical; PHYSICAL - [facility]. Start: 18-Apr-2024 14:10-04:00 MD Lorrie Downing Appointment Request [facility]. Start: 10-18-2022 Most recent hg a1c>e qual to 8.0%& MOST RECENT HEMOGLOBIN A1C LEVEL 8.0-9.0% (3052F) Start: 18-Oct-2022 Intent [facility] Immunizations Immunization Date Immunization Notes Care Provider Fa cility 08-28-2018 pneumococcal conjuga te vaccine, 13 valent Lorrie Downing MD Work Phone: [employer]; [employer]. Comment on above: Site: Right Vastus L ateralisVIS Given: * Pneumococcal Conjugate (PCV13) (05/08/15) 05-15-2014 pneumococcal Conjuga te, unspecified formulation Lorrie Downing MD Work Phone: [employer]; [employer]. 05-15-2014 ADMINISTRATION OF INFLUENZA VIRUS VACCINE ([id number]) Lor[email or web address] [place] [employer] 05-15-2014 influenza, seasonal, injectable Lorrie Downing MD [facility]: [email or web address] [employer] Comment on above: Site: Deltoid (Left) VIS Given: * Influenza, Inactivated () 05-15-2014 pneumococcal polysaccharide vaccine, 23 valent Lorrie Downing MD Work Phone: [place] [employer]; [employer] Comment on above: Site: Deltoid (Right )VIS Given: * Pneumococcal Polysaccharide (PPSV23) (04/08/09) 04-27-2012 influenza, seasonal, injectable Lorrie Downing MD [email or web address] [employer] Comment on above: Site: Deltoid (Left) VIS Given: * Inactivated Influenza Vaccine (02/11/09) * Inactivated Influenza Vaccine (01/26/11) * Influenza vaccine [id number], inactivated (01/03/2012) * VIS Given (Unspecified) 04-27-2012 IMMUNIZATION ADMIN ([id number]) Lorrie Downing MD Work Phone: [place] [employer]; [place] [employer] 05-24-2011 influenza, seasonal, injectable Lorrie Downing MD Work Phone: [place] [employer]; [employer] Comment on above: Site: Deltoid (Left) VIS Given: * Inactivated Influenza Vaccine (02/11/09) * Inactivated Influenza Vaccine (01/26/11) * Inactivated Influenza Vaccine (01/26/11) * Inactivated Influenza Vaccine (01/26/11) * Inactivated Influenza Vaccine (01/26/11) * Inactivated Influenza Vaccine (01/26/11) * Inactivated Influenza Vaccine (01/26/11) * Inactivated Influenza Vaccine (01/26/11) * VIS Given (Unspecified) * VIS Given (Unspecified) 05-24-2011 IMMUNIZATION ADMIN ([id number]) Lorrie Downing MD Work Phone: [facility], [employer] [facility] zoster vaccine, live Lorrie Bynum farooq MEJIA Work Phone: [facility], [facility] Comment on above: none Payers Date Payer Category Payer Medicare [id number] [id number] 2024 Self-pay [id number] 2024 Unknown [id number] 1950 Unknown [id number] [id number] Unknown [id number] Unknown [id number] 2.16.8 [id number] Unknown [id number] 2.16.8 [id number] Unknown [id number] 2.16.8 [id number] Unknown [id number] 2.16.8 [id number] Unknown [id number] 2.16.8 [id number] Social History Date Type Detail Facility Start: 07-03-2019 End: 07-03-2019 Tobacco smoking status NHIS Unknown if ever smoked [facility] Start: 07-03-2019 Non-smoker [facility] Start: 1950 Sex Assigned At Male [facility] Current Work/Study Status: Current Work/Study Status: ; Retired. [facility] Marital status: Marital status: ; . [employer] No Drug Use No Drug Use [employer]. Tobacco Use: Tobacco Use: ; N ever smoker. [employer]. Start: 07-03-2019 End: 11-21-[address] [facility] [employer]. Work Phone: Retired [employer]; [employer]. Work Phone: Start: 09-18-2024 Sex Male (finding) [facility] Medical Equipment Procedure Code Equipment Code Equipment Origin al Text Equipment Identifier Dates CLIP,HEMUMERMARLEEN [employer] FDA Start: 02-14-2019 CLIP,HEMOLOCK LG [employer] FDA Start: 02-14-2019 CLIP,HEMMono ConsultantsCK LG [employer] FDA Start: 02-14-2019 CLIP,HEMUMERCK LG [employer] FDA Start: 02-14-2019 CLIP,HEMOLOCK LG [employer] FDA Start: 02-14-2019 CLIP,HEMOLOCK LG [employer] FDA Start: 02-14-2019 CLIP,HEMOLOCK LG [employer]ECK FDA Start: 02-14-2019 CLIP,HEMOLOCK LG [employer] FDA Start: 02-14-2019 CLIP,HEMOLOCK LG [employer]ECK FDA Start: 02-14-2019 CLIP,HEMOLOCK LG [employer] FDA Start: 02-14-2019 CLIP,HEMOLOCK LG [employer]ECK FDA Start: 02-14-2019 CLIP,HEMOLOCK LG [employer] FDA Start: 02-14-2019 CLIP,HEMOLOCK LG WECK FDA Start: 02-14-2019 CLIP,HEMOLOCK LG [employer]ECK FDA Start: 02-14-2019 CLIP,HEMOLOCK LG WECK FDA Start: 02-14-2019 CLIP,HEMOLOCK LG [employer] FDA Start: 02-14-2019 Goals Date Patient Goal Desired Activity /State Evaluation note Note Date & Type Note Facility Evaluation note No assessment information availa [facility] Work Phone: Reason for referral (narrative) Note Date & Type Note Facility Reason for referral (narrative) No reason for referral information available [facility] Work Phone: Advance Directives Advance Directive Response Recorded Date/ Time Living Will Yes February 14 9 1:12pm Power of Oral And Maxillofacial Surgery Resident Yes February 14 1:12pm Advance Directive Response Recorded Date/ Time Living Will Yes February 14 9 12:12pm Power of Oral And Maxillofacial Surgery Resident Yes February 14 12:12pm Summary Purpose Family History Father Status:Active Comments: d. at 91 Hypertension Status:Active Comments:Father. Mother Status:Active Comments: d. at age 86 No Family History Records Found Chief Complaint and Reason for Visit Chief Complaint Admit Date HTN (VACCARIELLO) November 21, 2024 10:16 am Additional Source Comments Goals (unrecognized section and content) Goals may be documented in a n alternate sectionGoals may be documented in an alternate sectionGoals may be documented in an alternate sectionGoals may be documented in an alternate sectionGoals may be documented in an alternate sectionGoals may be documented in an alternate sectionGoals may be documented in an alternate sectionGoals may be documented in an alternate section (unrecognized sect ion and content) No Status Records FoundNo Status Records FoundNo Status Records Found INFORMATION SOURCE (unrecogn ized section and content) DATE CREATED AUTHOR 01/29/2022 [facility] DATE CREATED AUTHOR AUTHOR'S ORGANIZ ATION 09/13/2024 [facility] DATE CREATED AUTHOR AUTHOR'S ORGANIZ ATION 12/14/2024 [facility] Care Teams (unrecognized sec tion and content) Team Status: Active Member Role Status Dates Dr. Lorrie Downing MD Family Provider Active Dr. Lorrie Downing MD Primary Care Provider Active Team Status: Inactive Member Role Status Dates Dr. Lorrie Downing MD Primary Care Provider Active Dr. Curtis Collins MD Attending Provider, Referr ing Provider Active Team Status: Inactive Member Role Status Dates Dr. Lorrie Downing MD Primary Care Provider Active MIKA LongC Attending Provider, Referrin g Provider Active Team Status: Inactive Member Role Status Dates Dr. Lorrie Downing MD Primary Care Provider Active Radha Bob Attending Provider, Referring Provide r Active Team Status: Inactive Member Role Status Dates Dr. Lorrie Downing MD Primary Care Provider Active Start: September 04, 2024 End: September 04, 2024 Radha Bob Attending Provider Active Start : September 04, 2024 End: September 04, 2024 Radha De Le[place] Referring Provider Active Start : September 04, 2024 End: September 04, 2024 Team Status: Inactive Member Role Status Dates Dr. Lorrie Downing MD Primary Care Provider Active Start: November 21, 2024 End: November 21, 2024 Dr. Lorrie Downing MD Referring Provider Active Start: November 21, 2024 End: November 21, 2024 Dr. Cristian Lauren MD Attending Provider Active S tart: November 21, 2024 End: November 21, 2024 FOR RECORDS PERTAINING TO PATIENTS WHO ARE OR HAVE BEEN ENROLLED IN A CHEMICAL DEPENDENCY/SUBSTANCEABUSE PROGRAM, SOME INFORMATION MAY BE OMITTED. This clinical summary was aggregated from multiple sources. Caution should be exercised in using it in the provision of clinical care. This summary normalizes information from multiple sources, and as a consequence, information in this document may materially change the coding, format and clinical context of patient data. In addition, data may be omitted in some cases. CLINICAL DECISIONS SHOULD BE BASED ON THE PRIMARY CLINICAL RECORDS. [facility] [employer] provides no warranty or guarantee of the accuracy or completeness of information in this document.
== END | disposition home or self-care (01) ==
LOC: CVS 07:01
PROVIDERS: PCP Family Medicine; Referring Provider Internal Medicine Cardiovascular Disease; Visit Provider Internal Medicine Cardiovascular Disease
DX: I48.91 Unspecified atrial fibrillation (principal); R94.31 Abnormal electrocardiogram [ECG] [EKG]
CPT/HCPCS: 78452; 93017; A9500; A4216

== ENCOUNTER → 2025-03-11 | Outpatient (CLI) | payer MEDICARE, BC, SELFPAY ==
[2019-05-28 13:38] VITALS: BMI 31.4
[2025-03-11 14:24] LABS: PSA,Total- Diagnostic 2.74 ng/mL (0.00-4.00)
== END | disposition home or self-care (01) ==
LOC: LAB 13:32
PROVIDERS: PCP Family Medicine; Referring Provider Nurse Practitioner; Visit Provider Nurse Practitioner
DX: R97.21 Rising PSA following treatment for malignant neoplasm of prostate (principal)
CPT/HCPCS: 36415; 84153

== ENCOUNTER → 2025-06-11 | Outpatient (CLI) | payer MEDICARE, BC, SELFPAY ==
[2019-05-28 13:38] VITALS: BMI 31.4
[2025-06-11 13:13] LABS: PSA,Total- Diagnostic < 0.02 ng/mL (0.00-4.00)
== END | disposition home or self-care (01) ==
LOC: LAB 11:24
PROVIDERS: PCP Family Medicine; Referring Provider Urology; Visit Provider Urology
DX: C61 Malignant neoplasm of prostate (principal)
CPT/HCPCS: 36415; 84153

== ENCOUNTER → 2025-06-25 | Outpatient (CLI) | payer MEDICARE, BC, SELFPAY ==
[2019-05-28 13:38] VITALS: BMI 31.4
--- NOTE | 2025-06-25 10:15 | CT_ITS ---
PROCEDURE: CTA CHEST W/WO CONTRAST 06/25/2025 REASON FOR EXAM: DILATED AORTA, LUNG NODULE TECHNIQUE: Procedure Code: [id number] Modality: CT Procedure: CTA CHEST W/WO CONTRAST Multiplanar Sagittal and Coronal images were obtained. CONTRAST: Isovue 370 VOLUME: 75 mL One or more dose reduction techniques were used (e.g., Automated exposure control, adjustment of the mA and/or kV according to patient size, use of iterative reconstruction technique). RADIATION DOSE SUMMARY: CTDlvol: 16.73 mGy DLP: 625.58 mGycm COMPARISON: CTA chest July 21, 2024. 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 Heart: Mild cardiomegaly. Pulmonary Vessels: No evidence of pulmonary embolism. Hardware: None. Lymph nodes: No lymphadenopathy. Lungs and Airways: Diffuse ground glass densities in the lungs may represent pulmonary edema, pneumonitis or pneumonia. A new confluent airspace opacity in the right middle lobe concerning for pneumonia. The previously reported nodule is not visualized. A new 6 mm nodule seen in the medial right lower lobe. Pleura: No pleural effusion or pneumothorax. Upper Abdomen: No acute findings. Bones: No acute bony abnormalities. CT/CTA Chest W/WO Contrast IMPRESSION: Compared to CT scan December 19, 2024, waxing and waning pulmonary densities and no dules as detailed. These may represent infectious or inflammatory process. Reading Location: [facility]
[2025-06-25 10:33] LABS: CREATININE FINGERSTICK 1.0 mg/dL (0.70-1.30); EGFR FINGERSTICK > 60.0000 mL/min (>60)
== END | disposition home or self-care (01) ==
LOC: CT 10:06
PROVIDERS: PCP Family Medicine; Referring Provider Student in an Organized Health Care Education/Training Program; Visit Provider Student in an Organized Health Care Education/Training Program
DX: I71.21 Aneurysm of the ascending aorta, without rupture (principal)
CPT/HCPCS: 71275; Q9967